=== PATIENT | female | born 1970 | race Asian ===

== ENCOUNTER 2020-04-09 00:58 | Emergency (ER) | payer OTHER, SELFPAY ==
--- NOTE | 2020-04-09 01:10 | PC.NURSE ---
MD at bedside for primary eval. MD removing menstrual cup without difficulty. Pt aware of plan to DC home.
[2020-04-09 01:11] VITALS: BP 137/59; PULSE 95; RESP 20; TEMP 36.7; O2SAT 100; BMI 24.7
--- NOTE | 2020-04-09 01:17 | ED.FEMALEGU ---
HPI - Female Genitourinary General Chief complaint: Urogenital-Female Stated complaint: Personal Time Seen by Provider: 04/09/20 01:04 Source: patient Mode of arrival: ambulatory Limitations: no limitations History of Present Illness HPI Narrative: Patient comes emergency room complaining of a foreign object in her vagina. Patient states that she is on her menstrual period, patient inserted a menstrual cup at 15:00, states that she has been trying to get it out for several hours but has been unsuccessful. Patient denies pain. Related Data Allergies Allergy/AdvReac Type Severity Reaction Status Date / Time moxifloxacin [Avelox] Allergy Unknown Verified 07/31/17 00:00 penicillin V Allergy Unknown Verified 07/31/17 00:00 Penicillins [PENICILLINS] Allergy Unknown HIVES Unverified 12/05/19 16:04 From AVELOX Allergy Unknown THROAT Uncoded 12/05/19 16:04 SWELLS Review of Systems Review of Systems: Constitutional : No Weight loss, No Fever, No Chills, No Night Sweats, No Fatigue, No Malaise ENT/Mouth : No Hearing loss, No Ear Pain, No Nasal Congestion, No Sinus Pain, No Hoarseness, No sore throat, No Rhinorrhea, No Swallowing Difficulty Eyes: No Eye Pain, No Swelling, No Redness, No Foreign Body, No Discharge, No Vision Changes Cardiovascular : No Chest Pain, No SOB, No Dyspnea on Exertion, No Orthopnea, No Edema, No Palpitations Respiratory : No Cough, No Sputum, No Wheezing, No Smoke Exposure, No Dyspnea Gastrointestinal : No Nausea, No Vomiting, No Diarrhea, No Constipation, No abdominal Pain, No Hematochezia, No Melena Genitourinary : Complaining of a menstrual cup being stuck in her vagina, No Dysuria, No Urinary Frequency, No Hematuria, No Urinary Incontinence, No Urgency, No Flank Pain, No Urinary Flow Changes, No Hesitancy Musculoskeletal : No joint pain, No Myalgias, No Joint Swelling Skin : No Skin Lesions, No rash Neuro : No Weakness, No Numbness, No Paresthesias, No Loss of Consciousness, No Dizziness, No Headache Psych : No Anxiety/Panic, No Depression, No SI/HI/AH/VH, No Social Issues, Heme/Lymph: No Bruising, No Bleeding,No Lymphadenopathy Endocrine : No Polyuria, No Polydipsia, No Temperature Intolerance Physical Exam Vital Signs: Vital Signs: Last Vital Signs Temp 98.0 F 04/09/20 01:11 Pulse 95 04/09/20 01:11 Resp 20 04/09/20 01:11 BP 137/59 L 04/09/20 01:11 Pulse Ox 100 04/09/20 01:11 Body Mass Index 24.7 Appearance: Alert. Oriented X3. No acute distress. Eyes: Pupils equal, round and reactive to light. ENT: Pharynx normal. Neck: Normal inspection. Neck supple. No lymph nodes noted. No crepitus CVS: Normal heart rate and rhythm. Pulses normal. Normal S1 and S2 Respiratory: No respiratory distress. Breath sounds normal. No Wheezing. No rales Abdomen: Soft and nontender. No rigidity. No distention. good BS x4 : Menstrual cup is in the vagina Skin: Skin warm and dry. Normal skin color. Normal skin turgor. Extremities: No lower extremity edema. No lower extremity edema. No Lacerations. No Rash Neuro: Oriented X 3. No motor deficit. No sensory deficit. Moving all extermities. No slurred speech. Course Course Course Narrative: On pelvic exam, the menstrual cup was present, approximately 4 cm in, I was able to grab it with 2 fingers and pull it out. No instrumentation needed. Cervical exam after the menstrual cup was removed reveals normal cervix, no active bleeding from cervix Discharge Plan Discharge Clinical Impression: Foreign body in vagina Patient Disposition: Home, Self-Care Instructions: Vaginal Foreign Body (ED) Additional Instructions: Please do not use menstrual cups any more. Please follow-up with your primary care physician tomorrow. If you have any worsening or new symptoms, please return to the emergency room or call 911
--- NOTE | 2020-04-09 01:19 | PC.NURSE ---
Assisted with pelvic exam. Pt tolerated procedure well.
== END 2020-04-09 01:32 | disposition home or self-care (01) ==
LOC: HO.ED 01:23
PROVIDERS: Emergency Provider Emergency Medicine; PCP Internal Medicine
DX: R10.2 Pelvic and perineal pain (principal); Z30.432 Encounter for removal of intrauterine contraceptive device
CPT/HCPCS: 99283

== ENCOUNTER 2020-05-25 03:08 | Emergency (ER) | payer OTHER, SELFPAY ==
--- NOTE | ~2020-05-25 | CT_ITS ---
EXAMINATION: CT ABDOMEN AND PELVIS WITH CONTRAST CLINICAL INFORMATION: Lower abdominal pain, history of colitis COMPARISON: 12/27/2018 TECHNIQUE: Multidetector volumetric images were obtained from the superior aspect of the liver through the pubic symphysis following administration 75 mL of Omnipaque 350 intravenous contrast. Sagittal and coronal reformatted images were obtained on the technologist's workstation. Oral contrast: No This CT examination was performed using dose optimization techniques as appropriate, variously including the following: *Automated exposure control *Adjustment of mA and/or kV according to patient size (this includes techniques or standardized protocols for targeted exams where dose is matched to indication/reason for exam; i.e. extremities or head) *Use of iterative reconstruction technique DLP: 571 mGy-cm FINDINGS: LUNG BASES: The visualized lung bases are unremarkable. LIVER, GALLBLADDER, AND BILIARY TREE: The liver is normal in size, shape, and attenuation. Few scattered small hepatic lesions are too small to characterize, suggestive of cysts. No biliary ductal dilatation is present. Cholelithiasis is noted. PANCREAS: Unremarkable. SPLEEN: Unremarkable. ADRENAL GLANDS: Unremarkable. KIDNEYS AND URETERS: The kidneys are normal in size, shape, and attenuation. No hydronephrosis, hydroureter, or obstructing calculi seen. No perinephric stranding. BLADDER: Unremarkable. GASTROINTESTINAL TRACT: No evidence of bowel obstruction. No significant colonic wall thickening is seen. There is scattered fluid within the colon. The appendix appears nondilated. No free fluid or free air is seen. ABDOMINAL WALL: No significant hernia is appreciated. LYMPH NODES: Normal. VASCULAR: Unremarkable. PELVIC VISCERA: The uterus is enlarged and contains multiple masses, favoring fibroids. OSSEOUS STRUCTURES: There is facet arthropathy of the lower lumbar spine. CT/CT abdomen pelvis w con IMPRESSION: 1. No findings to suggest colitis. 2. Enlarged, lobulated uterus with multiple masses consistent with fibroids. 3. Cholelithiasis.
--- NOTE | 2020-05-25 03:10 | ED.ABDPAIN ---
HPI - Abdominal Pain General Chief Complaint: Abdominal Pain Stated Complaint: ABD PAIN Time Seen by Provider: 05/25/20 03:09 Source: patient Mode of arrival: ambulatory Limitations: no limitations History of Present Illness HPI narrative: 49 yo female hx of c diff colitis associated with antibiotic use comes in with c/o abdominal pain nausea and diarrhea onset yesterday no recent antibiotic use MD elicited complaint: abdominal pain Pertinent past history: other (colitis) Onset (ago): day(s) (1) Pain Consistency: constant Location: diffuse Severity: severe Quality: stabbing Radiation: none Migration to: no migration Exacerbating factors: movement Relieving factors: nothing Context: history of similar episodes Associated symptoms: nausea, diarrhea and chills Related Data Previous Rx's Medication Instructions Recorded hydrocodone-acetaminophen 1 tab PO Q6H PRN #12 tab 05/25/20 ondansetron 4 mg PO Q8H PRN #20 tab 05/25/20 Allergies Allergy/AdvReac Type Severity Reaction Status Date / Time moxifloxacin [Avelox] Allergy Unknown Verified 07/31/17 00:00 penicillin V Allergy Unknown Verified 07/31/17 00:00 Penicillins [PENICILLINS] Allergy Unknown HIVES Unverified 12/05/19 16:04 From AVELOX Allergy Unknown THROAT Uncoded 12/05/19 16:04 SWELLS Review of Systems Review of Systems Constitutional : No Weight loss, No Fever, pos Chills ENT/Mouth : No sore throat, No Rhinorrhea Eyes: No Swelling, No Redness Cardiovascular : No Chest Pain, No SOB, NoEdema Respiratory : No Cough, No Sputum, No Wheezing Gastrointestinal : Positive Nausea, no Vomiting, positive Diarrhea, positive abdominal Pain, No Hematochezia, No Melena Genitourinary : No Dysuria, No Urinary Frequency, No Hematuria, No Urgency Musculoskeletal : No joint pain, No Myalgias, No Joint Swelling Skin : No Skin Lesions, No rash Neuro : No Weakness, No Numbness, No Dizziness, No Headache Psych : No Anxiety/Panic, No Depression Heme/Lymph: No Bruising, No Lymphadenopathy Endocrine : No Polyuria, No Polydipsia All other systems reviewed and are negative. Physical Exam Vital Signs: Vital Signs: Last Vital Signs Temp 98 F 05/25/20 03:17 Pulse 80 05/25/20 05:33 Resp 16 05/25/20 05:33 BP 110/68 05/25/20 05:33 Pulse Ox 98 05/25/20 03:17 Body Mass Index 23.4 Appearance: Alert. Oriented X3. In pain, anxious, mild acute distress. Eyes: Pupils equal, round and reactive to light. ENT: Pharynx normal. Neck: Normal inspection. Neck supple. CVS: Normal heart rate and rhythm. Pulses normal. Respiratory: No respiratory distress. Breath sounds normal. Abdomen: Soft and diffuse moderate ttp with guarding, no rebound Skin: Skin warm and dry. pale skin color. Normal skin turgor. Extremities: No lower extremity edema. No calf ttp Neuro: Oriented X 3. No motor deficit. No sensory deficit. Course Course Course Narrative: pain is suprapubic, labs, UA negative, CT scan shows enlarged fibroid uterus the patient was aware of this, suspect that this is the cause of her pain MDM - Abdominal Pain MDM Narrative Medical decision making narrative: 49 yo female with hx of c diff colitis after antibiotic use comes to the ED with onset of abdominal pain and nausea/diarrhea starting yesterday - no recent antibiotic use, at this time will need labs, cultures, stool studies, CT scan for colitis, IVF, IV morphine for pain dispo per results and findings. Lab Data Result diagrams: 05/25/20 03:32 05/25/20 03:32 Labs: Lab Results 05/25/20 05/25/20 05/25/20 Range/Units 03:31 03:31 03:31 WBC (4.8-10.8) X10*3/uL RBC (4.20-5.50) X10*6/uL Hgb (12.0-16.0) g/dl Hct (37-47) % MCV (80-98) fL MCH (27.0-33.0) pg MCHC (31.0-35.0) g/dl RDW (11.0-16.0) % Plt Count (160-400) X10*3/uL MPV (9.4-12.3) fL Immature Gran % (Auto) (0.0-0.4) % Neut % (Auto) (45-73) % Lymph % (Auto) (20-40) % [place] % (Auto) (2-11) % Eos % (Auto) (0-4) % Baso % (Auto) (0-2) % Lymph # (Auto) (1.2-4.9) X10*3/uL [place] # (Auto) (0.1-1.2) X10*3/uL Eos # (Auto) (0.0-0.4) X10*3/uL Baso # (Auto) (0.0-0.2) X10*3/uL Abs Immat Gran (auto) (0.00-0.03) X10*3/uL Absolute Neuts (auto) (2.0-8.3) X10*3/uL Absolute Nucleated RBC (0.0-0.012) X10*3/uL Nucleated RBC % (auto) (0.0-0.2) /100WBC Hold Blue Top SEE NOTE Sodium (135-145) mmol/L Potassium (3.3-5.1) mmol/L Chloride (96-108) mmol/L Carbon Dioxide (22-29) mmol/L Anion Gap (12-20) BUN (9-16) mg/dL Creatinine (0.5-1.4) mg/dL Estim Creat Clear Calc Estimated GFR Random Glucose (60-115) mg/dL Lactic Acid 0.4 L (0.5-2.0) mmol/L Calcium (8.4-10.2) mg/dL Magnesium (1.6-2.6) mg/dL Total Bilirubin (0.0-1.0) mg/dL Direct Bilirubin (0.0-0.5) mg/dL AST (5-31) U/L ALT (0-31) U/L Alkaline Phosphatase (39-117) U/L Total Protein (6.5-8.0) g/dL Albumin (3.5-5.0) g/dL Lipase (8-78) U/L Urine Color Urine Appearance Urine pH (5.0-8.0) Ur Specific [place] (1.005-1.025) Urine Protein (NEG-TRACE) MG/DL Urine Glucose (UA) (NEG) MG/DL Urine Ketones (NEG) MG/DL Urine Blood (NEG) Urine Nitrite (NEG) Ur Leukocyte Esterase (NEG) Urine RBC (0) /HPF Urine WBC (0-4) /HPF Ur Squamous Epith Cells /LPF Calcium Oxalate Crystal /LPF Urine Bacteria /LPF Urine Mucus /LPF COVID-19 ([facility]) Negative (Negative) COVID-19 Clin Com See Note 05/25/20 05/25/20 05/25/20 Range/Units 03:31 03:32 03:32 WBC 7.7 (4.8-10.8) X10*3/uL RBC 4.05 L (4.20-5.50) X10*6/uL Hgb 12.9 (12.0-16.0) g/dl Hct 39.1 (37-47) % MCV 96.5 (80-98) fL MCH 31.9 (27.0-33.0) pg MCHC 33.0 (31.0-35.0) g/dl RDW 13.1 (11.0-16.0) % Plt Count 281 (160-400) X10*3/uL MPV 9.3 L (9.4-12.3) fL Immature Gran % (Auto) 0.1 (0.0-0.4) % Neut % (Auto) 69.8 (45-73) % Lymph % (Auto) 21.9 (20-40) % Mcintosh % (Auto) 7.5 (2-11) % Eos % (Auto) 0.3 (0-4) % Baso % (Auto) 0.4 (0-2) % Lymph # (Auto) 1.7 (1.2-4.9) X10*3/uL [place]osh # (Auto) 0.6 (0.1-1.2) X10*3/uL Eos # (Auto) 0.0 (0.0-0.4) X10*3/uL Baso # (Auto) 0.0 (0.0-0.2) X10*3/uL Abs Immat Gran (auto) 0.01 (0.00-0.03) X10*3/uL Absolute Neuts (auto) 5.4 (2.0-8.3) X10*3/uL Absolute Nucleated RBC 0.000 (0.0-0.012) X10*3/uL Nucleated RBC % (auto) 0.0 (0.0-0.2) /100WBC Hold Blue Top Sodium 142 (135-145) mmol/L Potassium 3.5 (3.3-5.1) mmol/L Chloride 107 (96-108) mmol/L Carbon Dioxide 29 (22-29) mmol/L Anion Gap 10 L (12-20) BUN 21 H (9-16) mg/dL Creatinine 0.72 (0.5-1.4) mg/dL Estim Creat Clear Calc 76.4 Estimated GFR > 60 Random Glucose 94 (60-115) mg/dL Lactic Acid (0.5-2.0) mmol/L Calcium 9.1 (8.4-10.2) mg/dL Magnesium 1.9 (1.6-2.6) mg/dL Total Bilirubin 0.2 (0.0-1.0) mg/dL Direct Bilirubin < 0.2 (0.0-0.5) mg/dL AST 14 (5-31) U/L ALT 13 (0-31) U/L Alkaline Phosphatase 56 (39-117) U/L Total Protein 6.9 (6.5-8.0) g/dL Albumin 4.3 (3.5-5.0) g/dL Lipase 29 (8-78) U/L Urine Color YELLOW Urine Appearance CLEAR Urine pH 6.0 (5.0-8.0) Ur Specific [place] >= 1.030 H (1.005-1.025) Urine Protein NEG (NEG-TRACE) MG/DL Urine Glucose (UA) NEG (NEG) MG/DL Urine Ketones NEG (NEG) MG/DL Urine Blood TRACE (NEG) Urine Nitrite NEG (NEG) Ur Leukocyte Esterase NEG (NEG) Urine RBC 1-4 (0) /HPF Urine WBC 1-4 (0-4) /HPF Ur Squamous Epith Cells 1+ /LPF Calcium Oxalate Crystal 2+ /LPF Urine Bacteria 1+ /LPF Urine Mucus 2+ /LPF COVID-19 ([facility]) (Negative) COVID-19 Clin Com Discharge Plan Discharge Clinical Impression: Abdominal pain Qualifiers: Abdominal location: lower abdomen, unspecified Qualified Code(s): R10.30 - Lower abdominal pain, unspecified Fibroid, uterine Qualifiers: Uterine leiomyoma location: unspecified location Qualified Code(s): D25.9 - Leiomyoma of uterus, unspecified Patient Disposition: Home, Self-Care Instructions: Abdominal Pain (ED) Additional Instructions: return to ED for any worsening symptoms or concerns you should talk to your doctor about your fibroids Prescriptions: New hydrocodone-acetaminophen 5-325 mg tablet 1 tab PO Q6H PRN (Reason: pain) Qty: 12 RF: 0 ondansetron 4 mg tablet,disintegrating 4 mg PO Q8H PRN (Reason: nausea and vomiting) Qty: 20 RF: 0 Stand Alone Forms: Work/School Release PMFSH Past Medical History Medical History (Updated 05/25/20 @ 05:43 by Nighat Medeiros DO) C. difficile colitis Surgical History Hx of section Social History Social History (Updated 05/25/20 @ 03:20 by Nighat Medeiros DO) Smoking Status: Never smoker Use of substances other than those prescribed or required for medical reasons: No Advance Directives: No
[2020-05-25 03:17] VITALS: BP 139/70; PULSE 66; RESP 16; TEMP 36.6; O2SAT 98; BMI 23.4
--- NOTE | 2020-05-25 03:20 | PC.NURSE ---
PT TO ROOM WITH C/O LOWER ABD PAIN, NAUSEA, AND DIARRHEA. PT ARRIVES ALERT, RESPIRATIONS EASY, N/L. SKIN W/Reba. IN ROOM FOR EVAL.
--- NOTE | 2020-05-25 03:35 | PC.NURSE ---
IV PLACED TO RAC, LABS DRAWN TO LAB. NS UP RUNNING W/O, SITE INTACT. PT REFUSED MORPHINE, MEDICATED WITH ZOFRAN FOR NAUSEA. NS UP AND RUNNING W/O SITE INTACT.
[2020-05-25 03:41] LABS: Basophils Percent Auto 0.4 % (0-2); Eosinophils Percent Auto 0.3 % (0-4); Hematocrit 39.1 % (37-47); Hemoglobin 12.9 g/dl (12.0-16.0); Imm Gran Abs Auto 0.01 X10*3/uL (0.00-0.03); Imm Gran Pct Auto 0.1 % (0.0-0.4); Lymphocytes Absolute Auto 1.7 X10*3/uL (1.2-4.9); Lymphocytes Percent Auto 21.9 % (20-40); MANUAL DIFF FLAG NO; Mean Corpuscular Hemoglobin 31.9 pg (27.0-33.0); Mean Corpuscular Volume 96.5 fL (80-98); Mean Platelet Volume 9.3 fL (9.4-12.3); Monocytes Absolute Auto 0.6 X10*3/uL (0.1-1.2); Monocytes Percent Auto 7.5 % (2-11); Neutrophils Absolute Auto 5.4 X10*3/uL (2.0-8.3); Neutrophils Percent Auto 69.8 % (45-73); Platelet Count 281 X10*3/uL (160-400); Red Blood Count 4.05 X10*6/uL (4.20-5.50); Red Cell Distribution Width 13.1 % (11.0-16.0); White Blood Count 7.7 X10*3/uL (4.8-10.8)
[2020-05-25] MEDS: 0.9 % Sodium Chloride 1,000 ML 999 ML IVCONT (03:44)
[2020-05-25] MEDS: ondansetron HCL 4 MG/2 ML VIAL IVPUSH (03:44)
[2020-05-25 03:46] LABS: Glucose Urine UA NEG (NEG); Leukocyte Esterase Urine NEG (NEG); Nitrite Urine NEG (NEG); Specific Gravity - Urine >= 1.030 (1.005-1.025); Urine Blood TRACE (NEG); Urine Ketones NEG (NEG); Urine Protein NEG (NEG-TRACE)
[2020-05-25 03:51] LABS: Appearance Urine CLEAR; Color Urine YELLOW
[2020-05-25 03:54] LABS: COVID-19 Test Negative (Negative); IDNOW Serial# 9DD0AD1C
[2020-05-25 03:57] LABS: Bacteria Urine 1+ /LPF; Calcium Oxalate Crystals Urine 2+ /LPF; Mucus Urine 2+ /LPF; Squamous Epithelial Cell Urine 1+ /LPF
[2020-05-25 04:00] LABS: Lactic Acid 0.4 mmol/L (0.5-2.0)
[2020-05-25 04:07] LABS: Anion Gap 10 (12-20); Carbon Dioxide 29 mmol/L (22-29); Chloride 107 mmol/L (96-108); Potassium 3.5 mmol/L (3.3-5.1); Sodium 142 mmol/L (135-145)
[2020-05-25 04:14] LABS: Alanine Aminotransferase 13 U/L (0-31); Albumin Level 4.3 g/dL (3.5-5.0); Alkaline Phosphatase 56 U/L (39-117); Aspartate Amino Transferase 14 U/L (5-31); Bilirubin Direct < 0.2 mg/dL (0.0-0.5); Bilirubin Total 0.2 mg/dL (0.0-1.0); Blood Urea Nitrogen 21 mg/dL (9-16); Calcium 9.1 mg/dL (8.4-10.2); Creatinine Clr Calc Pharmacy 76.4; Estimated Glomerular Filt Rate > 60; Glucose Random 94 mg/dL (60-115); Lipase 29 U/L (8-78); Magnesium 1.9 mg/dL (1.6-2.6); Total Protein 6.9 g/dL (6.5-8.0)
[2020-05-25] MEDS: iohexoL 350 MG/ML 75 ML INFUS..BTL IV (04:58)
[2020-05-25] MEDS: Morphine Sulfate 4 MG/ML CARTRIDGE IVPUSH (05:11)
[2020-05-25 05:33] VITALS: BP 110/68; PULSE 80; RESP 16
== END 2020-05-25 06:48 | disposition home or self-care (01) ==
PROVIDERS: Emergency Provider Emergency Medicine; PCP Internal Medicine
DX: R10.30 Lower abdominal pain, unspecified (principal); R19.7 Diarrhea, unspecified; D25.9 Leiomyoma of uterus, unspecified; Z20.822 Contact with and (suspected) exposure to COVID-19; Z87.19 Personal history of other diseases of the digestive system
CPT/HCPCS: 36415; 74177; 80048; 80076; 81001; 83605; 83690; 83735; 85025; 87040; 87635; 96361; 96374; 96375; 96376; 99284; J2270; J2405; Q9967

== ENCOUNTER 2020-08-06 01:58 | Emergency (ER) | payer OTHER, SELFPAY ==
--- NOTE | ~2020-08-06 | XR_ITS ---
EXAMINATION: XR CHEST CLINICAL INFORMATION: Shortness of breath COMPARISON: 09/08/2018 TECHNIQUE: Frontal view of the chest was obtained. FINDINGS: The lungs are clear with no focal consolidation. No evidence of pneumothorax, pulmonary edema, or pleural effusions. The cardiomediastinal silhouette is unremarkable. No acute osseous findings. XR/XR chest 1V IMPRESSION: No acute cardiopulmonary findings.
[2020-08-06 03:55] VITALS: BP 130/60; PULSE 69; RESP 18; TEMP 36.9; O2SAT 99; BMI 26.0
--- NOTE | 2020-08-06 04:10 | ED.GENADULT ---
HPI - General Adult General Chief complaint: Upper Respiratory Symptoms Stated complaint: SOB, cough Time Seen by Provider: 08/06/20 04:10 Source: patient Mode of arrival: ambulatory History of Present Illness HPI narrative: 49-year-old female who suffers from some anxiety who presents with having started with sneezing after being outside ring the day and states that it felt like she was having an asthma exacerbation but she has not had asthma and long time and noted that she had chills. She taken Atarax prior to arrival here in the ER and now reports that she has had complete resolution of all her symptoms. Of note, she has had both motor in a shots with the 2nd received at the end of June. She denies any GI or symptoms. Patient does endorse that she was recently started on hormone control for menorrhagia. Related Data Previous Rx's Medication Instructions Recorded hydrocodone-acetaminophen 1 tab PO Q6H PRN #12 tab 05/25/20 ondansetron 4 mg PO Q8H PRN #20 tab 05/25/20 Allergies Allergy/AdvReac Type Severity Reaction Status Date / Time moxifloxacin [Avelox] Allergy Unknown Anaphylaxis Verified 08/06/20 04:05 penicillin V Allergy Unknown Hives Verified 08/06/20 04:05 Penicillins [PENICILLINS] Allergy Unknown HIVES Verified 08/06/20 04:05 From [facility]ELOX Allergy Unknown THROAT Uncoded 08/06/20 04:05 SWELLS Review of Systems Review of Systems: Pertinent positives and negatives as stated in HPI 10 point review of systems is otherwise negative. [facility] Past Medical History Source: nursing notes reviewed Medical History Asthma C. difficile colitis Surgical History Hx of section Social History Social History Alcohol intake: never Smoking Status: Never smoker Use of substances other than those prescribed or required for medical reasons: No Advance Directives: No Advance Directives Information Provided: No Patient : No Physical Exam Vital Signs: Vital Signs: Last Vital Signs Temp 98.4 F 08/06/20 03:55 Pulse 64 08/06/20 07:24 Resp 16 08/06/20 07:24 BP 148/69 H 08/06/20 07:24 Pulse Ox 100 08/06/20 07:24 Body Mass Index 26.0 VITAL SIGNS: Reviewed. GENERAL: Well developed, well nourished, in no acute distress. HEAD: Normocephalic/atraumatic EYES: PERRLA, EOMI EARS: Ext canals without abnormality NOSE: Nares patent bilateral OROPHARYNX: no oral lesions noted, posterior pharynx clear NECK: Supple, no adenopathy LUNGS: Normal breath sounds. No adventitious sounds or accessory muscle use. SpO2<100> CARDIOVASCULAR: Regular rate and rhythm without noted murmurs, no JVD or lower extremity edema. ABDOMEN: Soft, non-tender, non-distended with bowel sounds. NEUROLOGIC: Alert and oriented x 4. Course Course Course Narrative: 49-year-old female with history and clinical presentation suggestive possible seasonal allergy exacerbation although low clinical suspicion for asthma exacerbation based on exam. Low clinical suspicion for PE or cardiopulmonary etiologies. Review of all investigations is significant for anemia. Patient is currently asymptomatic and review vital signs is not significant evidence that this has been an acute event and this is likely secondary to patient's reported menorrhagia that she has been experiencing. All results were discussed with the patient at bedside and she further endorse that she used to go to the infusion clinic and thinks that she may half to return given the current laboratory findings. 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 Patient was otherwise comfortable with being discharged to home. Medical Decision Making Lab Data Result diagrams: 08/06/20 05:28 08/06/20 05:28 Labs: Lab Results 08/06/20 08/06/20 08/06/20 Range/Units 05:17 05:28 05:28 WBC 4.9 (4.8-10.8) X10*3/uL RBC 2.84 L D (4.20-5.50) X10*6/uL Hgb 8.4 L D (12.0-16.0) g/dl Hct 25.7 L D (37-47) % MCV 90.5 (80-98) fL MCH 29.6 (27.0-33.0) pg MCHC 32.7 (31.0-35.0) g/dl RDW 14.1 (11.0-16.0) % Plt Count 418 H D (160-400) X10*3/uL MPV 8.9 L (9.4-12.3) fL Immature Gran % (Auto) 0.2 (0.0-0.4) % Neut % (Auto) 54.6 (45-73) % Lymph % (Auto) 30.2 (20-40) % [place] % (Auto) 10.1 (2-11) % Eos % (Auto) 4.3 H (0-4) % Baso % (Auto) 0.6 (0-2) % Lymph # (Auto) 1.5 (1.2-4.9) X10*3/uL [place] # (Auto) 0.5 (0.1-1.2) X10*3/uL Eos # (Auto) 0.2 (0.0-0.4) X10*3/uL Baso # (Auto) 0.0 (0.0-0.2) X10*3/uL Abs Immat Gran (auto) 0.01 (0.00-0.03) X10*3/uL Absolute Neuts (auto) 2.7 (2.0-8.3) X10*3/uL Absolute Nucleated RBC 0.000 (0.0-0.012) X10*3/uL Nucleated RBC % (auto) 0.0 (0.0-0.2) /100WBC Sodium 139 (135-145) mmol/L Potassium 4.5 D (3.3-5.1) mmol/L Chloride 111 H (96-108) mmol/L Carbon Dioxide 23 (22-29) mmol/L Anion Gap 10 L (12-20) BUN 16 (9-16) mg/dL Creatinine 0.65 (0.5-1.4) mg/dL Estim Creat Clear Calc 93.9 Estimated GFR > 60 Random Glucose 86 (60-115) mg/dL Calcium 8.2 L D (8.4-10.2) mg/dL Total Bilirubin < 0.2 (0.0-1.0) mg/dL AST 11 (5-31) U/L ALT 10 (0-31) U/L Alkaline Phosphatase 38 L D (39-117) U/L Total Protein 5.9 L (6.5-8.0) g/dL Albumin 3.5 (3.5-5.0) g/dL COVID-19 ([facility]) Negative (Negative) COVID-19 Clin Com See Note Discharge Plan Discharge Clinical Impression: Shortness of breath Patient Disposition: Home, Self-Care Instructions: Menorrhagia (ED), Anemia (ED), Shortness of Breath (ED) Additional Instructions: Please resume any and prescribed medications as instructed. Follow-up with your primary care provider and/or your aml analyst for further follow-up regarding your anemia related symptoms. Do not hesitate to return to the emergency room should you develop any acute worsening of your symptoms. Prescriptions: No Action hydrocodone-acetaminophen 5-325 mg tablet 1 tab PO Q6H PRN (Reason: pain) Qty: 12 RF: 0 ondansetron 4 mg tablet,disintegrating 4 mg PO Q8H PRN (Reason: nausea and vomiting) Qty: 20 RF: 0 Referrals: Lisa Cruz MD [Primary Care Provider] - 2 days (Evaluation after seen in the ER for shortness of breath and found to be significantly anemic although otherwise hemodynamically stable.)
[2020-08-06 05:42] LABS: COVID-19 Test Negative (Negative); IDNOW Serial# 9DD0AD1C
[2020-08-06 06:27] LABS: MANUAL DIFF FLAG NO
[2020-08-06 06:28] LABS: Basophils Percent Auto 0.6 % (0-2); Eosinophils Absolute Auto 0.2 X10*3/uL (0.0-0.4); Eosinophils Percent Auto 4.3 % (0-4); Hematocrit 25.7 % (37-47); Hemoglobin 8.4 g/dl (12.0-16.0); Imm Gran Abs Auto 0.01 X10*3/uL (0.00-0.03); Imm Gran Pct Auto 0.2 % (0.0-0.4); Lymphocytes Absolute Auto 1.5 X10*3/uL (1.2-4.9); Lymphocytes Percent Auto 30.2 % (20-40); Mean Corpuscular HGB Conc 32.7 g/dl (31.0-35.0); Mean Corpuscular Hemoglobin 29.6 pg (27.0-33.0); Mean Corpuscular Volume 90.5 fL (80-98); Mean Platelet Volume 8.9 fL (9.4-12.3); Monocytes Absolute Auto 0.5 X10*3/uL (0.1-1.2); Monocytes Percent Auto 10.1 % (2-11); Neutrophils Absolute Auto 2.7 X10*3/uL (2.0-8.3); Neutrophils Percent Auto 54.6 % (45-73); Platelet Count 418 X10*3/uL (160-400); Red Blood Count 2.84 X10*6/uL (4.20-5.50); Red Cell Distribution Width 14.1 % (11.0-16.0); White Blood Count 4.9 X10*3/uL (4.8-10.8)
[2020-08-06 07:00] LABS: Alanine Aminotransferase 10 U/L (0-31); Albumin Level 3.5 g/dL (3.5-5.0); Alkaline Phosphatase 38 U/L (39-117); Anion Gap 10 (12-20); Aspartate Amino Transferase 11 U/L (5-31); Bilirubin Total < 0.2 mg/dL (0.0-1.0); Blood Urea Nitrogen 16 mg/dL (9-16); Calcium 8.2 mg/dL (8.4-10.2); Carbon Dioxide 23 mmol/L (22-29); Chloride 111 mmol/L (96-108); Creatinine Clr Calc Pharmacy 93.9; Estimated Glomerular Filt Rate > 60; Glucose Random 86 mg/dL (60-115); Potassium 4.5 mmol/L (3.3-5.1); Sodium 139 mmol/L (135-145); Total Protein 5.9 g/dL (6.5-8.0)
[2020-08-06 07:24] VITALS: BP 148/69; PULSE 64; RESP 16; O2SAT 100
[2020-08-06 08:41] VITALS: BP 134/69; PULSE 65; RESP 15; O2SAT 98
== END 2020-08-06 08:57 | disposition home or self-care (01) ==
PROVIDERS: Emergency Provider Student in an Organized Health Care Education/Training Program; PCP Internal Medicine
DX: R06.02 Shortness of breath (principal); Z20.822 Contact with and (suspected) exposure to COVID-19; J45.909 Unspecified asthma, uncomplicated; Z79.899 Other long term (current) drug therapy
CPT/HCPCS: 36415; 71045; 80053; 85025; 87635; 99283; 99284

== ENCOUNTER 2020-08-20 15:46 | Emergency (ER) | payer OTHER, SELFPAY | END 2020-08-20 17:21 | disposition left against medical advice (07) | PROVIDERS: Emergency Provider Emergency Medicine; PCP Internal Medicine | DX: R07.9 Chest pain, unspecified (principal) ==

== ENCOUNTER 2021-10-06 02:00 | Emergency (ER) | payer OTHER, SELFPAY ==
--- NOTE | 2021-10-06 | ECG_ITS ---
Test Reason : cp Blood Pressure : / mmHG Vent. Rate : 071 BPM Atrial Rate : 071 BPM P-R Int : 154 ms QRS Dur : 078 ms QT Int : 384 ms P-R-T Axes : 049 047 033 degrees QTc Int : 417 ms Normal sinus rhythm Normal ECG When compared with ECG of 08-SEP-2018 20:56, No significant change was found Referred By: Generic ED Physician Electronically Signed By:Cooper Wakefield
--- NOTE | ~2021-10-06 | XR_ITS ---
EXAMINATION: XR CHEST CLINICAL INFORMATION: Chest pain COMPARISON: 08/06/2020 TECHNIQUE: 2 views of the chest were obtained. FINDINGS: The lungs are clear with no focal consolidation. No evidence of pneumothorax, pulmonary edema, or pleural effusions. The cardiomediastinal silhouette is unremarkable. No acute osseous findings. XR/XR chest 2V IMPRESSION: No acute cardiopulmonary findings.
[2021-10-06 02:20] VITALS: BP 118/66; PULSE 68; RESP 18; TEMP 36.3; O2SAT 98; BMI 31.8
[2021-10-06 02:22] LABS: MANUAL DIFF FLAG NO
[2021-10-06 02:23] LABS: Basophils Percent Auto 0.7 % (0-2); Eosinophils Absolute Auto 0.2 X10*3/uL (0.0-0.4); Eosinophils Percent Auto 3.8 % (0-4); Hematocrit 29.7 % (37.0-47.0); Imm Gran Abs Auto 0.01 X10*3/uL (0.00-0.03); Imm Gran Pct Auto 0.2 % (0.0-0.4); Lymphocytes Absolute Auto 1.8 X10*3/uL (1.2-4.9); Lymphocytes Percent Auto 30.7 % (20-40); Mean Corpuscular HGB Conc 30.3 g/dl (31.0-35.0); Mean Corpuscular Hemoglobin 22.1 pg (27.0-33.0); Monocytes Absolute Auto 0.6 X10*3/uL (0.1-1.2); Monocytes Percent Auto 9.8 % (2-11); Neutrophils Absolute Auto 3.2 x10*3/uL (2.0-8.3); Neutrophils Percent Auto 54.8 % (45-73); Platelet Count 402 X10*3/uL (160-400); Red Blood Count 4.07 X10*6/uL (4.20-5.50); Red Cell Distribution Width 20.9 % (11.0-16.0); White Blood Count 5.8 X10*3/uL (4.8-10.8)
[2021-10-06 02:42] LABS: Alanine Aminotransferase 9 U/L (0-31); Alkaline Phosphatase 72 U/L (39-117); Anion Gap 10 (12-20); Aspartate Amino Transferase 12 U/L (5-31); Bilirubin Total 0.2 mg/dL (0.0-1.0); Blood Urea Nitrogen 18 mg/dL (9-16); Calcium 9.1 mg/dL (8.4-10.2); Carbon Dioxide 26 mmol/L (22-29); Chloride 109 mmol/L (96-108); Creatinine Clr Calc Pharmacy 75.7; Estimated Glomerular Filt Rate > 60; Glucose Random 116 mg/dL (60-115); Potassium 3.9 mmol/L (3.3-5.1); Sodium 141 mmol/L (135-145); Total Protein 6.9 g/dL (6.5-8.0); Troponin-I High Sensitivity < 3.5 ng/L (<3.5-17.0)
== END 2021-10-06 08:24 | disposition left against medical advice (07) ==
PROVIDERS: Emergency Provider Emergency Medicine; PCP Internal Medicine
DX: R07.89 Other chest pain (principal); M25.561 Pain in right knee; Z79.899 Other long term (current) drug therapy
CPT/HCPCS: 36415; 71046; 80053; 84484; 85025; 93005; 99283

== ENCOUNTER 2021-10-11 09:41 | Outpatient (REF) | payer OTHER, SELFPAY ==
--- NOTE | ~2021-10-11 | XR_ITS ---
EXAMINATION: XR KNEE STANDING AP, BILATERAL XR KNEE, RIGHT CLINICAL INFORMATION: Knee pain. COMPARISON: Standing AP knees and right knee radiographs 05/01/2017. TECHNIQUE: Standing AP view of both knees is performed. The right knee is also imaged in lateral and axial patella x2 views. FINDINGS: RIGHT KNEE: Tricompartment osteoarthritis greatest medial compartment with joint narrowing, osteophytes, and mild genu varus. No visible erosive change or chondrocalcinosis. No destructive process. There is no lateralization or tilting of the patella. A moderate suprapatellar effusion is present. Hoffa's fat pad appears normal. There is spurring at the quadriceps insertion patella. Findings slightly increased since prior exam 2018. LEFT KNEE: There is mild narrowing medial knee joint compartment with spurring from the medial femoral condyle and medial tibial plateau and mild genu varus. No visible erosive change or chondrocalcinosis. No destructive process. XR/XR knee standing BI IMPRESSION: RIGHT: Tricompartment osteoarthritis increased since 2018 with mild secondary genu varus and moderate suprapatellar effusion. Spurring at quadriceps insertion patella. LEFT: Mild narrowing medial compartment with osteophytes and mild genu varus.
--- NOTE | ~2021-10-11 | XR_ITS ---
EXAMINATION: XR KNEE STANDING AP, BILATERAL XR KNEE, RIGHT CLINICAL INFORMATION: Knee pain. COMPARISON: Standing AP knees and right knee radiographs 05/01/2017. TECHNIQUE: Standing AP view of both knees is performed. The right knee is also imaged in lateral and axial patella x2 views. FINDINGS: RIGHT KNEE: Tricompartment osteoarthritis greatest medial compartment with joint narrowing, osteophytes, and mild genu varus. No visible erosive change or chondrocalcinosis. No destructive process. There is no lateralization or tilting of the patella. A moderate suprapatellar effusion is present. Hoffa's fat pad appears normal. There is spurring at the quadriceps insertion patella. Findings slightly increased since prior exam 2018. LEFT KNEE: There is mild narrowing medial knee joint compartment with spurring from the medial femoral condyle and medial tibial plateau and mild genu varus. No visible erosive change or chondrocalcinosis. No destructive process. XR/XR knee RT 2V IMPRESSION: RIGHT: Tricompartment osteoarthritis increased since 2018 with mild secondary genu varus and moderate suprapatellar effusion. Spurring at quadriceps insertion patella. LEFT: Mild narrowing medial compartment with osteophytes and mild genu varus.
== END 2021-10-11 09:42 | disposition home or self-care (01) ==
LOC: HO.HOSX 09:41
PROVIDERS: Visit Provider Physician Assistant
DX: M76.51 Patellar tendinitis, right knee (principal); M25.562 Pain in left knee
CPT/HCPCS: 73560; 73565; 99202

== ENCOUNTER 2021-10-18 14:24 | Outpatient (REF) | payer OTHER, SELFPAY ==
--- NOTE | ~2021-10-18 | XR_ITS ---
EXAMINATION: XR SHOULDER, LEFT CLINICAL INFORMATION: Left shoulder pain. COMPARISON: None TECHNIQUE: Three views of the left shoulder. XR/XR shoulder LT min 2V FINDINGS/IMPRESSION: Amorphous calcification projecting roughly over the expected location of the insertion of the supraspinatus tendon on the humeral head suggests calcific bursitis versus calcific tendinitis. There is no acute radiographic finding. No fracture or dislocation is seen. Bony mineralization appears preserved. No lytic or sclerotic bony lesion is seen. The joint spaces appear maintained.
--- NOTE | ~2021-10-18 | XR_ITS ---
EXAMINATION: XR HAND, LEFT CLINICAL INFORMATION: Left-sided finger pain COMPARISON: None TECHNIQUE: PA, lateral, and oblique views of the left hand. FINDINGS: The bones and soft tissues are normal. No fracture. Alignment is anatomic. Joint spaces are maintained. No erosions or soft tissue calcifications. XR/XR hand LT min 3V IMPRESSION: Normal left hand.
== END 2021-10-18 14:25 | disposition home or self-care (01) ==
LOC: HO.HMGCX 14:24
PROVIDERS: Visit Provider Physician Assistant
DX: M79.645 Pain in left finger(s) (principal); M25.512 Pain in left shoulder
CPT/HCPCS: 73030; 73130

== ENCOUNTER → 2021-11-01 12:21 | Outpatient (BNVA) | payer OTHER, SELFPAY | PROVIDERS: PCP Internal Medicine; Visit Provider Orthopaedic Surgery | DX: M23.311 Other meniscus derangements, anterior horn of medial meniscus, right knee (principal) | CPT/HCPCS: 20610; 99212; J1100 ==

== ENCOUNTER 2021-11-16 07:42 | Outpatient (REF) | payer OTHER, SELFPAY ==
--- NOTE | ~2021-11-16 | MR_ITS ---
EXAMINATION: MR KNEE WITHOUT CONTRAST, RIGHT CLINICAL INFORMATION: Right knee pain x4 months. COMPARISON: 10/11/2021. TECHNIQUE: MRI of the knee without contrast was performed using routine sequences on a high-field scanner. FINDINGS: MENISCI: Medial Meniscus: The previously seen radial tear at the posterior horn near the root is less pronounced as compared to the prior study from 2015. There is a new oblique radial tear at the junction of the posterior horn and body extending to the inner half of the meniscal cross-section. Additionally, there is a near-complete radial tear at the anterior half of the meniscal body, which spares a thin band of peripheral, femoral sided fibers. Much of the meniscal body is extruded medially from the jointline. Lateral Meniscus: Intact LIGAMENTS: Cruciate: Edema signal around the MCL is likely reactive to the underlying meniscal abnormality. Collateral ligaments are intact. Collateral: Intact EXTENSOR MECHANISM: Enthesopathic spurring is present at the quadriceps tendon insertion on the patella. Patellar tendon is normal. ARTICULAR CARTILAGE/BONE: Patellofemoral Compartment: There is moderate nonuniform cartilage loss at the central patella and central trochlea with foci of full-thickness chondral fissuring of the trochlea. Moderate size marginal osteophytes. There is degenerative arthritis as progressed as compared to prior. Medial Compartment: Diffuse moderate articular cartilage loss is evident at the medial femoral condyle and medial tibial plateau weightbearing surfaces with more focal high-grade cartilage loss at the posteromedial aspect of the medial tibial plateau. Moderate size marginal osteophytes. Mild subchondral edema signal. No fractures. Lateral Compartment: Moderate size marginal osteophytes. Mild nonuniform cartilage loss at the lateral femoral condyle and tibial plateau, similar to prior. JOINT FLUID AND BURSAE: Small to moderate-sized joint effusion. No Singleton's cyst. MR/MR knee RT wo con IMPRESSION: 1. Two radial tears at the medial meniscus, both of which are new as compared to 2015. Meniscal extrusion. 2. Progression of the moderate osteoarthritis at the medial and patellofemoral compartments. More mild lateral compartment osteoarthritis. 3. Small to moderate-sized joint effusion.
== END 2021-11-16 07:43 | disposition home or self-care (01) ==
LOC: HO.MRI 07:42
PROVIDERS: Visit Provider Orthopaedic Surgery
DX: M23.311 Other meniscus derangements, anterior horn of medial meniscus, right knee (principal)
CPT/HCPCS: 73721

== ENCOUNTER → 2021-11-26 09:58 | Outpatient (BNVA) | payer OTHER, SELFPAY | PROVIDERS: PCP Internal Medicine; Visit Provider Orthopaedic Surgery | DX: S83.241D Other tear of medial meniscus, current injury, right knee, subsequent encounter (principal) | CPT/HCPCS: 99212 ==

== ENCOUNTER 2021-12-20 14:07 | Emergency (ER) | payer OTHER, SELFPAY ==
[2021-12-20 14:22] VITALS: BP 131/73; PULSE 74; RESP 18; TEMP 36.9; O2SAT 100; BMI 33.6
--- NOTE | 2021-12-20 16:52 | ED_ITS ---
HPI - Skin/Abscess/Foreign Bdy General Chief complaint: Skin/Abscess/Foreign Body Stated complaint: Rash Time Seen by Provider: 12/20/21 16:47 Source: patient Mode of arrival: ambulatory Limitations: no limitations History of Present Illness HPI narrative: Patient presents emergency department for evaluation of a red rash to the bilateral hands. First noticed yesterday. Not itchy. Not painful. Uncertain whether any bug bite occurred. Denies any known allergies. Denies any new detergents/soaps/lotions. Denies any new recent medications. No fevers, chills, shortness of breath, difficulty breathing. Related Data Allergies Allergy/AdvReac Type Severity Reaction Status Date / Time moxifloxacin [Avelox] Allergy Unknown Anaphylaxis Verified 10/18/21 14:00 penicillin V Allergy Unknown Hives Verified 10/18/21 14:00 Penicillins [PENICILLINS] Allergy Unknown HIVES Verified 10/18/21 14:00 From AVELOX Allergy Unknown THROAT Uncoded 10/18/21 14:00 SWELLS Review of Systems Review of Systems: Constitutional: No fever, chills, weakness or fatigue. Skin: Positive rash, no itching. Cardiovascular: No chest pain, chest pressure or chest discomfort. No palpitations Respiratory: No shortness of breath, cough or sputum production. Gastrointestinal: No nausea, vomiting or diarrhea. No abdominal pain Genitourinary: No burning micturition. No urinary frequency or incontinence. Musculoskeletal: No muscle pain, back pain, joint pain or stiffness. Psychiatric: No depression or anxiety. Yes all other systems are reviewed and are negative PMFSH Past Medical History Attestation statement: The following information was validated with the patient. Source: old records reviewed Medical History Asthma C. 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 Blood pressure normal.? Heart rate normal.? Respiration rate normal. Temperature normal.? Oxygen saturation normal. Appearance: Alert.?Oriented to person, place and time. No acute distress.?Normal affect.?? Neck: Normal inspection.? Neck supple.?? CVS: Heart sounds normal. Normal heart rate and rhythm.? Pulses normal.?? Respiratory: No respiratory distress.? Lung sounds clear to auscultation bilaterally?? Abdomen: Soft and non-tender. Normoactive bowel sounds. No pulsatile mass.?? Skin: Skin warm and dry.? Normal skin color.? 4 maculopapular areas to right d orsal hand, 1 to left hand.??No significant surrounding erythema, swelling, pain, pruritus, linear abrasions. Palms of hands are clear, interdigit spaces clear Extremities: No lower extremity edema.? Neuro: Moves all extremities spontaneously. Sensation intact bilaterally. No focal neuro deficits. Ambulates with normal steady gait. Course Course Course Narrative: Patient is a 51-year-old female with a past medical history of anxiety, asthma who presents emergency department for evaluation of rash to the bilateral dorsal hands. Discussed with patient at this time rash appears most likely consistent with a contact dermatitis, patient highly concerned about possibility of bed bugs although she did check her house extensively last night and did not see any evidence of them. Advised patient cannot completely exclude the possibility of bed bugs, but would seem less likely if she did not find any evidence of them, and they are not pruritic. Patient discharged home in stable condition, reviewed reasons to return back to emergency department, advised outpatient follow-up with primary care provider as needed. MDM - Skin/Abscess/Foreign Bdy Medical Records Attestation: I reviewed the patient's medical records. Discharge Plan Discharge Clinical Impression: Rash Patient Disposition: Home, Self-Care Instructions: Acute Rash (ED) Additional Instructions: Please return to emergency department with any new or worsening symptoms or concerns. Follow-up with your primary care provider as needed.
--- OUTSIDE RECORDS SUMMARY | 2021-12-20 17:07 | XMS_ITS | Continuity of Care Document ---
:1970 Author Organization [facility] Address [address] [place] [address]- Care Team Providers Name Role Phone Nancy GUTIERRES, Lisa Primary Care Physician Encounter [facility] Date(s): 09/24/19 - 10/24/19 [facility] [address] [place] [address] [facility] Attending Physician: Gonzalez Chowdhury Admitting Physician: AdmtrGonzalez Referring Physician: Admtr, ArFausto Allergies, Adverse Reactions, Alerts Substance Reaction Severity Status penicillins hives/rash Active Avelox throat closing Active Pollen pollen,trees Active Medications albuterol CFC free 90 mcg/inh inhalation aerosol 2, puffs, Inhalation, 4 times a day, PRN, Refills 0, Maintenance, 05/13/16 18:19:48 EST Start Date: 05/13/16 Status: Orderedbrimonidine 0.025% ophthalmic solution 0 Refills, Maintenance, 05/07/19 8:28:00 EST Start Date: 05/07/19 Status: OrderedMultivitamin By Mouth, Daily, 0 Refills, Maintenance, 03/25/19 9:56:00 EST Start Date: 03/25/19 Status: OrderedProbiotic Formula By Mouth, Daily, 0 Refills, Maintenance, 03/25/19 9:20:00 EST Start Date: 03/25/19 Status: OrderedReadi-Cat 2 oral suspension See Instructions, 2 bottles as per radiology instructions, # 2 each, 0 Refills, Maintenance, 05/07/19 9:03:00 EST, [id number], 2 bottles as per radiology instructions, 160, cm, 05/07/19 8:24:00EST, Height, 97.3, kg, 04/01/19 11:49:00 EST, Dry... Start Date: 05/07/19 Status: OrderedTravatan Z 0.004% ophthalmic solution 1 drops, Eyes, Both, Daily before dinner, 0 Refills, Maintenance, 05/07/19 8:27:00 EST Start Date: 05/07/19 Status: Ordered Problem List Condition Effective Dates Status Health Status Informant Abdominal pain(Confirmed) Active Heavy period(Confirmed) Active Uterine fibroid(Confirmed) Active Social History Social History Type Response Smoking Status Never (less than 100 in life time) entered on: 05/07/19 Sex
--- OUTSIDE RECORDS SUMMARY | 2021-12-20 17:07 | XMS_ITS | Continuity of Care Document ---
:1970 Author Organization [facility] Address [address] [place] [address]- Care Team Providers Name Role Phone Not on Staff, PCP Primary Care Physician Unavailable Encounter [facility] Date(s): 04/01/19 - 04/01/[address] [address]- [facility] Discharge Disposition: A-D/C Home Attending Physician: Lokesh Sin MD Admitting Physician: Lokesh Sin MD Referring Physician: Lokesh Sin MD Allergies, Adverse Reactions, Alerts Substance Reaction Severity Status penicillins hives/rash Active Avelox throat closing Active Pollen pollen,trees Active Medications albuterol CFC free 90 mcg/inh inhalation aerosol 2, puffs, Inhalation, 4 times a day, PRN, Refills 0, Maintenance, 05/13/16 18:19:48 EST Start Date: 05/13/16 Status: Orderedibuprofen 800 mg oral tablet 800 mg, 1, tablet, By Mouth, 3 times a day, # 20 tablet, Refills 0, Tot. Refills 0, Acute 04/08/19 13:29:00 EST, 04/01/19 13:29:00 EST, Print Requisition Start Date: 04/01/19 Stop Date: 04/08/19 Status: OrderedMultivitamin By Mouth, Daily, 0 Refills, Maintenance, 03/25/19 9:56:00 EST Start Date: 03/25/19 Status: OrderedProbiotic Formula By Mouth, Daily, 0 Refills, Maintenance, 03/25/19 9:20:00 EST Start Date: 03/25/19 Status: Ordered Problem List Condition Effective Dates Status Health Status Informant Abdominal pain(Confirmed) Active Heavy period(Confirmed) Active Uterine fibroid(Confirmed) Active Vital Signs Most recent to oldest 1 2 3 [Reference Range]: Height 160 cm 158 cm (04/01/19 11:49 AM) (03/25/19 9:53 AM) Weight 97.3 kg 100 kg (04/01/19 11:49 AM) (03/25/19 9:53 AM) Oxygen Saturation [94-100 99 % 100 % 100 % %] (04/01/19 2:30 PM) (04/01/19 2:15 PM) (04/01/19 2:0 0 PM) Pulse Rate [55-90 bpm] 74 bpm (04/01/19 11:49 AM) Body Mass Index 38.01 40.06 [18.5-24.99] *>HHI* *>HHI* (04/01/19 11:49 AM) (03/25/19 9:53 AM) Blood Pressure 153/84 mm Hg 149/72 mm Hg 148/72 mm Hg [90-138/55-84 mm Hg] *H* *H* *H* (04/01/19 2:30 PM) (04/01/19 2:15 PM) (04/01/19 2:0 0 PM) Respiratory Rate [16-30 40 br/min 35 br/min 54 br/mi n br/min] *H* *H* *H* (04/01/19 2:30 PM) (04/01/19 2:15 PM) (04/01/19 2:0 0 PM) Temperature [96.8-100.4 98.7 DegF 97.7 DegF 97.9 Deg F DegF] (04/01/19 2:15 PM) (04/01/19 1:30 PM) (04/01/19 11: 49 AM) Liters per Minute 2 L/min 5 L/min 5 L/min (04/01/19 2:15 PM) (04/01/19 2:00 PM) (04/01/19 1:4 5 PM) Mode of Delivery (Oxygen) Room air Room air Simple face mask (04/01/19 2:30 PM) (04/01/19 2:15 PM) (04/01/19 2:0 0 PM) Blood pressure sites Arm, right (04/01/19 11:49 AM) Temperature Route Temporal Temporal (04/01/19 1:30 PM) (04/01/19 11:49 AM) Dry Weight 97.3 kg 100 kg (04/01/19 11:49 AM) (03/25/19 9:53 AM) Weight Obtained Via Standing scale (04/01/19 11:49 AM) Dry Weight Obtained Via Standing scale Patient/family stated (04/01/19 11:49 AM) (03/25/19 9:53 AM)
--- OUTSIDE RECORDS SUMMARY | 2021-12-20 17:07 | XMS_ITS | Continuity of Care Document ---
:1970 Author Organization [facility] Address [address] [place] [address]- Care Team Providers Name Role Phone Not on Staff, PCP Primary Care Physician Unavailable Encounter [facility] Date(s): 03/27/19 - 04/03/[address] [address]- [facility] Attending Physician: Lokesh Sin MD Allergies, Adverse Reactions, [...]
--- OUTSIDE RECORDS SUMMARY | 2021-12-20 17:07 | XMS_ITS | Continuity of Care Document ---
:1970 Author Organization [facility] Address [address] [place] [address]- Care Team Providers Name Role Phone Nancy GUTIERRES, Lisa Primary Care Physician [id number] Date(s): 06/26/19 - 10/24/19 [facility] [address] [place] [address]- [facility] Attending Physician: Mireya Cochran NP Admitting Physician: Mireya Cochran NP Referring Physician: Lisa Cruz MD Allergies, Adverse Reactions, Alerts Substance Reaction [...]
--- OUTSIDE RECORDS SUMMARY | 2021-12-20 17:07 | XMS_ITS | Continuity of Care Document ---
:1970 Author Organization [facility] Address [address] [place] [address]- Care Team Providers Name Role Phone Not on Staff, PCP Primary Care Physician Unavailable Encounter [facility] Date(s): 02/06/19 - 05/01/19 [facility] [address] [place] [address]- [facility] Attending Physician: Laurence Rowley MD Admitting Physician: Laurence Rowley MD Referring Physician: Lisa Cruz MD Allergies, Adverse Reactions, Alerts Substance Reaction Severity Status penicillins hives/rash Active Avelox throat closing Active Pollen pollen,trees Active Medications albuterol CFC free 90 mcg/inh inhalation aerosol 2, puffs, Inhalation, 4 times a day, PRN, Refills 0, Maintenance, 05/13/16 18:19:48 EST Start Date: 05/13/16 Status: OrderedMultivitamin By Mouth, Daily, 0 Refills, Maintenance, 03/25/19 9:56:00 EST Start Date: 03/25/19 Status: OrderedProbiotic Formula By Mouth, Daily, 0 Refills, Maintenance, 03/25/19 9:20:00 EST Start Date: 03/25/19 Status: Ordered Problem List Condition Effective Dates Status Health Status Informant Abdominal pain(Confirmed) Active Heavy period(Confirmed) Active Uterine fibroid(Confirmed) Active
--- OUTSIDE RECORDS SUMMARY | 2021-12-20 17:08 | XMS_ITS | Continuity of Care Document ---
:1970 Author Organization [facility] Address [address] [place] [address]- Care Team Providers Name Role Phone Nancy GUTIERRES, Lisa Primary Care Physician En[place] [facility] Date(s): 05/10/19 - 06/17/[address] [address] [facility] Attending Physician: Mireya Cochran NP Admitting Physician: Mireya Cochran NP Referring Physician: Mireya Cochran NP Allergies, Adverse Reactions, Alerts Substance Reaction Severity [...]
== END 2021-12-20 18:13 | disposition home or self-care (01) ==
PROVIDERS: Emergency Provider Emergency Medicine; PCP Internal Medicine
DX: R21 Rash and other nonspecific skin eruption (principal)
CPT/HCPCS: 99282

== ENCOUNTER → 2022-02-03 11:58 | Outpatient (BNVA) | payer OTHER, SELFPAY | PROVIDERS: PCP Internal Medicine; Visit Provider Orthopaedic Surgery | DX: S83.241D Other tear of medial meniscus, current injury, right knee, subsequent encounter (principal); M76.51 Patellar tendinitis, right knee | CPT/HCPCS: 20610; 99212; J1100 ==

== ENCOUNTER 2023-09-04 09:42 | Outpatient (AMB) | payer OTHER, SELFPAY ==
--- NOTE | 2023-09-04 10:02 | MHC.OFFVIS ---
Vital Signs 09/04/23 10:03 Height 5 ft 3 in Weight 238 lb BMI 42.2 Intake Visit Reasons: OV, Right Knee MMT, last seen 2021 Intake Note: Elli is a 52 year old female who presents today for a follow up visit for right knee pain. Hx of right knee MMT. Last injection 02/03/22 NE. Patient reports she has been having on going right knee pain for the past two years. She expresses she banged her knee on the side of a recliner and since then her knee has not been the same. She had lost weight and gained some weight again and her knee started to hurt her again, she then lost some more weight but since then feels her knee pain has not improved. She found mild relief in her last injection, she would like to discuss gel injections. She would also like to discuss a referral for PT. Allergies moxifloxacin [Avelox] Allergy (Unknown, Verified 09/04/23 10:10) Anaphylaxis penicillin V Allergy (Unknown, Verified 09/04/23 10:10) Hives Penicillins [PENICILLINS] Allergy (Unknown, Verified 09/04/23 10:10) HIVES From AVELOX Allergy (Unknown, Uncoded 09/04/23 10:10) THROAT SWELLS HPI HPI OV, Right Knee MMT, last seen 2021: Details: Elli is a 52 year old female who presents today for a follow up visit for right knee pain. Hx of right knee MMT. Last injection 02/03/22 NE. Patient reports she has been having on going right knee pain for the past two years. She expresses she banged her knee on the side of a recliner and since then her knee has not been the same. She had lost weight and gained some weight again and her knee started to hurt her again, she then lost some more weight but since then feels her knee pain has not improved. She found mild relief in her last injection, she would like to discuss gel injections. She would also like to discuss a referral for PT. [facility] Medical History Asthma C. 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 Steroid injection have not helped and I recommend PT and gel injections Coding Level of Care Code Est Pt Level 3 (05180) Diagnoses Tear of medial meniscus of right knee S83.241A
[2023-09-04 10:03] VITALS: BMI 42.2
== END 2023-09-04 10:30 | disposition home or self-care (01) ==
PROVIDERS: PCP Internal Medicine; Visit Provider Orthopaedic Surgery
DX: S83.241A Other tear of medial meniscus, current injury, right knee, initial encounter (principal)
CPT/HCPCS: 99213

== ENCOUNTER → 2023-09-04 09:42 | Outpatient (BNVA) | payer OTHER, SELFPAY | PROVIDERS: PCP Internal Medicine; Visit Provider Orthopaedic Surgery | DX: S83.241D Other tear of medial meniscus, current injury, right knee, subsequent encounter (principal) | CPT/HCPCS: 99212 ==

== ENCOUNTER 2023-11-02 09:13 | Outpatient (AMB) | payer OTHER, SELFPAY ==
--- NOTE | 2023-11-02 09:17 | MHC.OFFVIS ---
Intake Visit Reasons: OV - Right Knee Euflexxa #1 Intake Note: Elli is a 52 year old female who presents today for her right knee Euflexxa injection #1. She reports that she is quite anxious for this injection. Allergies moxifloxacin [Avelox] Allergy (Unknown, Verified 11/02/23 09:17) Anaphylaxis penicillin V Allergy (Unknown, Verified 11/02/23 09:17) Hives Penicillins [PENICILLINS] Allergy (Unknown, Verified 11/02/23 09:17) HIVES From AVELOX Allergy (Unknown, Uncoded 11/02/23 09:17) THROAT SWELLS HPI HPI OV - Right Knee Euflexxa #1: Details: Here for right knee Euflexxa. PFSH Medical History Asthma C. 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 Site was prepped using aseptic technique. Patient tolerated the procedure well. Primary Site: right knee Approach Used: anterolateral Coding 33612 - Large joint Procedure code (CPT) selection complete Assessment & Plan Assessment & Plan (1) Arthritis of right knee: Code(s): M17.11 - Unilateral primary osteoarthritis, right knee Category: Medical Plan: Injected Euflexxa 1/3. Follow up 1 week. Coding Level of Care Code Est Pt Level 2 (79290) Diagnoses Arthritis of right knee M17.11 CPT Codes Coding - Large joint: 16422 - Large joint ([id number])
== END 2023-11-02 09:29 | disposition home or self-care (01) ==
PROVIDERS: PCP Internal Medicine; Visit Provider Orthopaedic Surgery
DX: M17.11 Unilateral primary osteoarthritis, right knee (principal)
CPT/HCPCS: 20610

== ENCOUNTER → 2023-11-02 09:13 | Outpatient (BNVA) | payer OTHER, SELFPAY | PROVIDERS: PCP Internal Medicine; Visit Provider Orthopaedic Surgery | DX: M17.11 Unilateral primary osteoarthritis, right knee (principal) | CPT/HCPCS: 20610; J7323 ==

== ENCOUNTER 2023-11-09 12:17 | Outpatient (AMB) | payer OTHER, SELFPAY ==
--- NOTE | 2023-11-09 12:39 | MHC.OFFVIS ---
Vital Signs 11/09/23 12:40 Height 5 ft 3 in Weight 238 lb BMI 42.2 Intake Visit Reasons: OV - Right Knee Euflexxa #2 Intake Note: Elli is a 52 year old female who presents today for her second right knee Euflexxa injection. Patient reports that she is doing well and is nervous for her injection today. Allergies moxifloxacin [Avelox] Allergy (Unknown, Verified 11/09/23 12:40) Anaphylaxis penicillin V Allergy (Unknown, Verified 11/09/23 12:40) Hives Penicillins [PENICILLINS] Allergy (Unknown, Verified 11/09/23 12:40) HIVES From AVELOX Allergy (Unknown, Uncoded 11/09/23 12:40) THROAT SWELLS HPI HPI OV - Right Knee Euflexxa #2: Details: Elli is a 52 year old female who presents today for her second right knee Euflexxa injection. Patient reports that she is doing well and is nervous for her injection today. PFSH Medical History Asthma C. 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 Site was prepped using aseptic technique. Patient tolerated the procedure well. Primary Site: right knee Approach Used: anterolateral Coding 88213 - Large joint Procedure code (CPT) selection complete Assessment & Plan Assessment & Plan (1) Arthritis of right knee: Code(s): M17.11 - Unilateral primary osteoarthritis, right knee Category: Medical Plan: Euflexxa 2/3 Coding Level of Care Code Est Pt Level 2 (39849) Diagnoses Arthritis of right knee M17.11 CPT Codes Coding - Large joint: 30500 - Large joint ([id number])
[2023-11-09 12:40] VITALS: BMI 42.2
== END 2023-11-09 16:48 ==
PROVIDERS: PCP Internal Medicine; Visit Provider Orthopaedic Surgery
DX: M17.11 Unilateral primary osteoarthritis, right knee (principal)
CPT/HCPCS: 20610

== ENCOUNTER → 2023-11-09 12:17 | Outpatient (BNVA) | payer OTHER, SELFPAY | PROVIDERS: PCP Internal Medicine; Visit Provider Orthopaedic Surgery | DX: M17.11 Unilateral primary osteoarthritis, right knee (principal) | CPT/HCPCS: 20610; J7323 ==

== ENCOUNTER 2023-11-16 11:28 | Outpatient (AMB) | payer OTHER, SELFPAY ==
--- NOTE | 2023-11-16 11:37 | MHC.OFFVIS ---
Intake Visit Reasons: OV - Right Knee Euflexxa #3 Allergies moxifloxacin [Avelox] Allergy (Unknown, Verified 11/09/23 12:40) Anaphylaxis penicillin V Allergy (Unknown, Verified 11/09/23 12:40) Hives Penicillins [PENICILLINS] Allergy (Unknown, Verified 11/09/23 12:40) HIVES From AVELOX Allergy (Unknown, Uncoded 11/09/23 12:40) THROAT SWELLS HPI HPI OV - Right Knee Euflexxa #3: Details: 3/3 Euflexxa PFSH Medical History Asthma C. 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 She may follow up as needed. Coding Level of Care Code Est Pt Level 2 (90496) Diagnoses Arthritis of right knee M17.11
== END 2023-11-16 12:12 | disposition home or self-care (01) ==
PROVIDERS: PCP Internal Medicine; Visit Provider Orthopaedic Surgery
DX: M17.11 Unilateral primary osteoarthritis, right knee (principal)
CPT/HCPCS: 20610

== ENCOUNTER → 2023-11-16 11:28 | Outpatient (BNVA) | payer OTHER, SELFPAY | PROVIDERS: PCP Internal Medicine; Visit Provider Orthopaedic Surgery | DX: M17.11 Unilateral primary osteoarthritis, right knee (principal) | CPT/HCPCS: 20610; J7323 ==

== ENCOUNTER 2023-11-22 10:00 | Outpatient (RCR) | payer OTHER, SELFPAY ==
--- NOTE | 2023-10-13 16:18 | MHC.PT.EP ---
[facility] [place] Office [place] Office [place] Office [address] Ramírez Conrad [address] [phone] F: [phone] F: [phone] F: [phone] F: [phone] Physical Therapy Plan of Care Date of Evaluation: 10/13/23 Date of Surgery: Diagnosis: RIGHT knee Unilateral Primary Osteoarthritis (MD Dx) RIGHT knee medial meniscus tears with meniscal extrusion. Moderate OA confirmed on MRI (PT Dx) (RS) Assessment: Patient is a pleasant 52 y.o. female who is referred to PT by Dr. Mahesh Sanford MD of [facility] Orthopedics with Dx of RIGHT knee Unilateral Primary Osteoarthritis. PT diagnosis is medial meniscus tears with meniscal extrusion. She has moderate OA confirmed on MRI of RIGHT knee. Patient impairments include knee pain, knee swelling, limited knee ROM, weakness in hip and knee, antalgic gait. Patient current functional limitations are ascend/descend stairs, bend/squat, in/out of bathtub, has to put on shoes/socks, ambulation. Patient will benefit from skilled PT to address aforementioned impairments and functional limitations to meet established goals. Frequency and Duration: The patient will be seen 2x/week for 4 weeks Short Term Goals: 2 weeks Patient demonstrates consistency and independence with HEP to self manage symptoms. Patient is able to demonstrate proper use of cane to offload RIGHT knee to use as needed for knee pain. Longterm Goals: 4 weeks Patient presents with increased RIGHT knee flexion 95 degrees to be able to bend/squat to low chair/surface. Patient presents with increased RIGHT knee quad strength 4/5 to be able to ascend/descend stairs to bedroom with less strain. Treatment Plan: Modalities to reduce pain, spasms and effusion. Manual therapy to restore motion and function. Therapeutic exercise to improve strength and flexibility. Neuromuscular re-education for posture and balance. Therapeutic activities to return to functional activities of daily living. Electronically signed by: Jae Luna, PT, DPT Please sign and return to therapist. Thank you for your referral.
--- NOTE | 2024-01-16 09:54 | MHC.PT.DC ---
[facility] [place] Office [place] Office [place] Office [address] Ramírez Conrad [address] [phone] F: [phone] F: [phone] F: [phone] F: [phone] Physical Therapy Discharge Report Diagnosis: RIGHT knee Unilateral Primary Osteoarthritis (MD Dx) RIGHT knee medial meniscus tears with meniscal extrusion. Moderate OA confirmed on MRI (PT Dx) (RS) Date of Surgery: Date of Evaluation: 10/13/23 Date of Discharge: 01/16/24 Treatments to Date: 8 Cancellations to Date: 1 No Shows to Date: Discharge Status: Independent with HEP Patient Elected to Stop Discharge Summary: Elli ceased attending PT on her own accord. She was last on 11/22/23 and the assessment reads, Since Elli has some acute knee pain I did not have her perform active warm-up. She reports only pain when performing SAQ with more reps. She reports pain relief with use of TENS was given info for home unit. She is therefore discharged from PT at this time. Electronically signed by: Jae Luna, PT, DPT Please sign and return to therapist. Thank you for your referral.
== END 2024-01-16 09:54 | disposition home or self-care (01) ==
LOC: HO.PT 10:00
PROVIDERS: PCP Internal Medicine; Visit Provider Orthopaedic Surgery
DX: M17.11 Unilateral primary osteoarthritis, right knee (principal)
CPT/HCPCS: 97014; 97110; 97161

== ENCOUNTER 2024-07-25 11:45 | Outpatient (AMB) | payer OTHER, SELFPAY ==
[2024-07-25 11:51] VITALS: BMI 42.2
--- NOTE | 2024-07-25 11:51 | MHC.OFFVIS ---
Vital Signs 07/25/24 11:51 Height 5 ft 3 in Weight 238 lb BMI 42.2 Intake Visit Reasons: Right Knee Euflexxa #1 Intake Note: Elli is a 53 year old female who presents today for repeat Right Knee Euflexxa, today is injection #1 Allergies moxifloxacin [Avelox] Allergy (Unknown, Verified 11/09/23 12:40) Anaphylaxis penicillin V Allergy (Unknown, Verified 11/09/23 12:40) Hives Penicillins [PENICILLINS] Allergy (Unknown, Verified 11/09/23 12:40) HIVES From AVELOX Allergy (Unknown, Uncoded 11/09/23 12:40) THROAT SWELLS HPI HPI Right Knee Euflexxa #1: Details: Elli is a 53 year old female who presents today for repeat Right Knee Euflexxa, today is injection #1 HPI Comments Details: Here for 1/3 Euflexxa right knee. PFSH Medical History Asthma C. 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 Site was prepped using aseptic technique. Patient tolerated the procedure well. Shoulders, Hips, Knees, Knee Large Joint Injection : Right Knee Coding Procedure code (CPT) selection complete Assessment & Plan Assessment & Plan (1) Arthritis of right knee: Code(s): M17.11 - Unilateral primary osteoarthritis, right knee Category: Medical Plan: Injected 1/3 Euflexxa. f/u one week Coding Level of Care Code Est Pt Level 2 (05215) Diagnoses Arthritis of right knee M17.11 CPT Codes Shoulders, Hips, Knees, - Knee Large Joint Injection : Right Knee ([id number])
--- OUTSIDE RECORDS SUMMARY | 2024-07-25 13:15 | XMS_ITS | Encounter Summary ---
Author Organization [facility] Address [address] [place] [address] Care Team Providers Care Business Line Controller Name Role Phone Krishan Zuniga MD Primary Care Provider Encounter Details Date Type Department Care Team ([facility] st Contact Info) Description 07/24/2024 Telephone Bariatric Surgery - [place] 175 [facility] [address] [place] [address] Yoav Parikh MD 175 [facility] 120 [place] [address] Social History Tobacco Use Types Packs/Day Years Used Date Smoking Tobacco: Never Smokeless Tobacco: Never Alcohol Use Standard Drinks/Week Comments Yes 0 (1 standard drink = 0.6 oz pur e alcohol) Housing Instability Answer Date Recorde d Are you worried that in the next 2 months you may not have stable housing? Yes 07/12/2024 Food Access & Nutrition Answer Date Rec orded Do you have access to a vari ety of food including fruits and vegetables? Yes 07/12/2024 Health Literacy Answer Date Recorded How often do you need to hav e someone help you when you read instructions, pamphlets, or other written material from your doctor or pharmacy? Rarely 07/12/2024 Caregiver: How often do you need to have someone help you when you read instructions, pamphlets, or other written material from your doctor or pharmacy? Not on file 07/12/2024 Financial Risk Answer Date Recorded How hard is it for you to pa y for the very basics like food, housing, medical care, and air conditioning / heating? Somewhat hard 07/12/2024 Transportation Answer Date Recorded Has the lack of transportati on kept you from meetings, work, or from getting things needed for daily living? No Has the lack of transportati on kept you from medical appointments or from getting medications? No 07/12/2024 Social Isolation Answer Date Recorded How often do you feel lonely or isolated from th ose around you? Always 07/12/2024 Food Risk Answer Date Recorded Within the past 12 months we worried whether our food would run out before we got money to buy more. Never true 07/12/2024 Within the past 12 months th e food we bought just didn't last and we didn't have money to get more. Never true 07/12/2024 Dependent Care Answer Date Recorded Do you need help finding or paying for care for your loved ones. For example, early childhood associate or elderly care for an older adult? No 07/12/2024 Education Answer Date Recorded Do you think completing more education or training, like finishing a GED, going to college, or learning a trade, would be helpful for you? No 07/12/2024 Employment and Income Answer Date Recor ded During the last four weeks, have you been actively looking for work? No 07/12/2024 Living Situation Answer Date Recorded What is your living situation? 0 07/12/2024 Comments No Sex and Gender Information Value Date Recorded Sex Assigned at Not on file Legal Sex Female 12:18 AM EST Gender Identity Not on file Sexual Orientation Not on file documented as of this encounter Progress Notes * Patty Elmore MA - 07/24/2024 11:17 AM EDT Pt states phentermine is not working and would like to try ozempic per your last visit documented in this encounter Plan of Treatment Upcoming Encounters Date Type Department Care Team (Late st Contact Info) Description 07/25/2024 3:45 PM EDT Office Visit Bariatric Surgery - [place] 175 [facility] [address] [place] [phone] Yoav Parikh MD 175 [facility] 120 [place] [address] 08/19/2024 9:45 AM EDT Office Visit Pulmonolgy - [place] [address] [place] [phone] Loraine Sawyer MD [address] [place] [address] 09/24/2024 9:00 AM EDT Consult [facility] - [place] [address] [place] [address] Timothy Webster MD [address] [place] [phone] 10/15/2024 9:00 AM EDT Office Visit Adult Medicine [facility] [place] [address] [place] [phone] Krishan Zuniga MD [address] [place] [address] documented as of this encounter Visit Diagnoses Not on filedocumented in this encounter Additional Health Concerns Assessment Noted Time PHQ-9 Depression Total Score: 18 025 4:23 PM EDT documented as of this encounter Care Teams Business Line Controller Relationship Specialty Start Date End Date Krishan Zuniga MD [address] [place] [phone] PCP - General Internal Medicine 02/08/24 documented as of this encounter
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
--- OUTSIDE RECORDS SUMMARY | 2024-07-25 13:15 | XMS_ITS | Encounter Summary ---
Author Organization [facility] Address [address] [place] [address] Care Team Providers Care Primer Inserting Machine Adjuster Name Role Phone Lisa Cruz MD Primary Care Provider [phone] Encounter Details Date Type Department Care Team (Late st Contact Info) Description 02/22/2021 Orders Only [facility] [address] [place] [phone] Provider, Unknown, [address] [place] [address] Social History Tobacco Use Types Packs/Day Years [...] on file documented as of this encounter Plan of Treatment Not on file documented as of this encounter Procedures * Due to [place] [employer] law, this organization might not be sharing negative HIV tests. Procedure Name Priority Date/Time Associated Diagnosis Comments AMB EXTERNAL MRI BRAIN, OUTS SAMUEL RESULT Routine 05/12/2020 documented in this encounter Results * Due to [place] [employer] law, this organization might not be sharing negative HIV tests. * MRI Brain, Outside Result (05/12/2020) Anatomical Region Laterality Modality Other us Unknown Provider AMB EXTERNAL RESULT PROCEDUR ES Final Result documented in this encounter Visit Diagnoses Not on filedocumented in this encounter Care Teams Primer Inserting Machine Adjuster Relationship Specialty Start Date End Date Lisa Cruz MD PCP - General Internal Medicine 02/22/21 documented as of this encounter
--- OUTSIDE RECORDS SUMMARY | 2024-07-25 13:15 | XMS_ITS | Encounter Summary ---
Author Organization [facility] Address [address] [place] [address] Care Team Providers Care Inspector Metal Fabricating Name Role Phone Krishan Zuniga MD Primary Care Provider Reason for Visit * Reason Onset Date Comments Med Refill 06/26/2024 topiramate Encounter Details Date Type Department Care Team (Late Contact Info) Description 06/26/2024 Telephone Bariatric Surgery [facility] [address] [phone] Yoav Parikh MD [address] [address] Med Refill (topiramate) Social History Tobacco Use Types Packs/Day Years Used Date Smoking Tobacco: Never Smokeless Tobacco: Never Alcohol Use Standard Drinks/Week Comments Yes 0 (1 standard drink = 0.6 oz pur e alcohol) Comments No Sex and Gender Information Value Date Recorded Sex Assigned at Not on file Legal Sex Female 12:18 AM EST Gender Identity Not on file Sexual Orientation Not on file documented as of this encounter Progress Notes * Tasia Guerin - 06/26/2024 2:11 PM EDT Patient is requesting script for Topiramate 50 mg documented in this encounter Plan of Treatment Upcoming Encounters Date Type Department Care Team (Late Contact Info) Description 07/25/2024 3:45 PM EDT Office Visit Bariatric Surgery [facility] [address] [phone] Yoav Parikh MD 175 [facility] 120 [place] [address] 08/19/2024 9:45 AM EDT Office Visit Pulmonolgy - [place] [address] [place] [phone] Loraine Sawyer MD 175 [facility] 200 [place] [address] 09/24/2024 9:[address] [facility] for [facility] - [place] [address] [place] [phone] Timothy Webster MD [facility] [address] [place] [phone] 10/15/2024 9:00 AM EDT Office Visit Adult Medicine [facility] [address] [place] [phone] Krishan Zuniga MD [address] [place] [address] documented as of this encounter Visit Diagnoses Not on filedocumented in this encounter Care Teams Inspector Metal Fabricating Relationship Specialty Start Date End Date Krishan Zuniga MD [address] [place] [address] PCP - General Internal Medicine 02/08/24 documented as of this encounter
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
--- OUTSIDE RECORDS SUMMARY | 2024-07-25 13:15 | XMS_ITS | Clinical Summary ---
Author Organization [facility] Address [address] [place] [address] Care Team Providers Care Informatics Pharmacist Name Role Phone Lisa Cruz MD Primary Care Provider [phone] Allergies Active Allergy Reactions Criticality Noted Date Comments Moxifloxacin Hives 10/10/2009 [place] as if her throat was swelling along [...] 03/07/2005 Depression 03/07/2005 Overview (02/08/2023): With anxiety Family History Relation Name Status Comments Father Alive Mother Alive Social History Tobacco Use Types Packs/Day Years [...] 02/22/2021 1:45 PM EST Plan of Treatment Health Maintenance Due Date Last Done Comments Cervical Cancer Screening 1968 Cologuard 1968 Colon Cancer Screening 1968 Colonoscopy 1968 FOBT / Fit Test 1968 HIV Screening 1968 HPV and Pap Smear 1968 Hepatitis C Screening 1968 Pap Smear 1968 Sigmoidoscopy 1968 Hepatitis B Vaccines (1 of 3 - 19+ 3-dose series) 11/26/1987 Mammogram 2008 Zoster Vaccines (1 of 2) 2018 Pneumococcal Vaccine: 50+ Ye ars (2 of 2 - PCV) 03/22/2022 03/22/2021 COVID-19 Vaccine (2023-2 5 season) 2023 11/02/2022, 01/14/2022, 02/23/2021, Additional history exists Alcohol/Substance Use Screening 03/20/2024 Depression Screening and Follow-Up 03/20/2024 Social Drivers of Health Tiff ual Screening 03/20/2024 Influenza Vaccine (Season Ended) 2024 11/02/2022, 01/03/2022, 12/06/2020, Additional history exists DTaP,Tdap,and Td Vaccines (2 - Td or Tdap) 11/09/2030 11/09/2020, 06/27/2017, 04/08/2004 RSV Vaccine (60+ years old a nd patients) (1 - 1-dose 75+ series) 11/26/2043 Insurance [employer] Care Teams Informatics Pharmacist Relationship Specialty Start Date End Date Lisa Cruz MD PCP - General Internal Medicine 02/22/21
== END 2024-07-25 12:04 | disposition home or self-care (01) ==
LOC: HO.HOS 11:45
PROVIDERS: PCP Internal Medicine; Visit Provider Orthopaedic Surgery
DX: M17.11 Unilateral primary osteoarthritis, right knee (principal)
CPT/HCPCS: 20610

== ENCOUNTER → 2024-07-25 11:45 | Outpatient (BNVA) | payer OTHER, SELFPAY | PROVIDERS: PCP Internal Medicine; Visit Provider Orthopaedic Surgery | DX: M17.11 Unilateral primary osteoarthritis, right knee (principal) | CPT/HCPCS: 20610; J7323 ==

== ENCOUNTER 2024-08-01 10:46 | Outpatient (AMB) | payer OTHER, SELFPAY ==
[2024-08-01 10:53] VITALS: BMI 42.2
--- NOTE | 2024-08-01 10:53 | MHC.OFFVIS ---
Vital Signs 08/01/24 10:53 Height 5 ft 3 in Weight 238 lb BMI 42.2 Intake Visit Reasons: Right Knee Euflexxa #2 Intake Note: Elli is a 53 year old female who presents today for the second right knee euflexxa of the series. Allergies moxifloxacin [Avelox] Allergy (Unknown, Verified 11/09/23 12:40) Anaphylaxis penicillin V Allergy (Unknown, Verified 11/09/23 12:40) Hives Penicillins [PENICILLINS] Allergy (Unknown, Verified 11/09/23 12:40) HIVES From AVELOX Allergy (Unknown, Uncoded 11/09/23 12:40) THROAT SWELLS HPI HPI Right Knee Euflexxa #2: Details: Here for Euflexxa 2/3. No changes since last visit. PFSH Medical History Asthma C. 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 Site was prepped using aseptic technique. Patient tolerated the procedure well. Procedure: The patient tolerated the procedure well Shoulders, Hips, Knees, Knee Large Joint Injection : Right Knee Coding Procedure code (CPT) selection complete Assessment & Plan Assessment & Plan (1) Arthritis of right knee: Code(s): M17.11 - Unilateral primary osteoarthritis, right knee Category: Medical Plan: Gel injected right knee. No issues. Follow up 1 week. Coding Level of Care Code Est Pt Level 2 (64038) Diagnoses Arthritis of right knee M17.11 CPT Codes Shoulders, Hips, Knees, - Knee Large Joint Injection : Right Knee ([id number])
--- OUTSIDE RECORDS SUMMARY | 2024-08-01 11:53 | XMS_ITS | Encounter Summary ---
Author Organization [facility] Address [address] [place] [address] Care Team Providers Care Web Development Consultant Name Role Phone Krishan Zuniga MD Primary Care Provider [phone] Reason for Visit * Reason Onset Date Comments Med Refill 06/26/2024 topiramate Encounter Details Date Type Department Care Team ([facility] st Contact Info) Description 06/26/2024 Telephone Bariatric Surgery - [place] [address] [facility] [address] [place] [address] Yoav Parikh MD [address] [facility] [address] [place] [address] Med Refill (topiramate) Social History Tobacco Use [...] care for your loved ones. For example, childcare administrator or elderly care for an older adult? [...] Care Team (Late st Contact Info) Description 08/14/2024 9:30 AM EDT Appointment Radiology Department - [address] [phone] 08/19/2024 9:45 AM EDT Office Visit Pulmonolgy - [address] [place] [address] Loraine Sawyer MD [address] [facility] [address] [place] [address] 09/24/2024 9:00 AM EDT Consult [facility] - [place] [address] [facility] [address] [facility] [address] [place] [phone] Timothy Webster MD [address] [facility] [address] [place] [phone] 10/15/2024 9:00 AM EDT Office Visit Adult Medicine [address] [phone] Krishan Zuniga MD [address] [place] [phone] documented as of this encounter Visit Diagnoses Not on filedocumented in this encounter Care Teams Web Development Consultant Relationship Specialty Start Date End Date Krishan Zuniga MD [address] [place] [phone] PCP - General Internal Medicine 02/08/24 documented as of this encounter
--- OUTSIDE RECORDS SUMMARY | 2024-08-01 11:53 | XMS_ITS | Encounter Summary ---
Author Organization [facility] Address [address] [place] [address] Care Team Providers Care Medical Education Specialist Name Role Phone Lisa Cruz MD Primary Care Provider Krishan Mendoza Primary Care Provider [phone] Encounter Details Date Type Department Care Team Description 01/07/2021 Telephone Adult Medicine [address] [address] Lisa Cruz MD Social History Tobacco Use Types Packs/Day Years Used Date Smoking Tobacco: Never Smokeless Tobacco: Never Alcohol Use Standard Drinks/Week Comments Yes 0 (1 standard drink = 0.6 oz pur e alcohol) rarely possibly once yearly Sex Assigned at Date Recorded Not on file Job Start Date Occupation Industry Not on file Not on file Not on file documented as of this encounter Plan of Treatment Not on file documented as of this encounter Visit Diagnoses Not on filedocumented in this encounter Care Teams Medical Education Specialist Relationship Specialty Start Date End Date Lisa Cruz MD PCP - General Internal Medicine 01/12/11 10/17/21 Krishan Zuniga [address] [place] [address] [phone] PCP - General Internal Medicine 10/18/21 documented as of this encounter
--- OUTSIDE RECORDS SUMMARY | 2024-08-01 11:53 | XMS_ITS | Encounter Summary ---
Author Organization [facility] Address [address] [place] [address] Care Team Providers Care Shipfitter Name Role Phone Lisa Cruz MD Primary Care Provider Krishan Mendoza Primary Care Provider [phone] Reason for Visit * Reason Onset Date Comments refill request 01/07/2014 Encounter Details Date Type Department Care Team Description 01/07/2014 Refill Adult Medicine [address] [address] Lisa Cruz MD refill request Social History Tobacco Use Types Packs/Day Years Used Date Smoking Tobacco: Never Smokeless Tobacco: Never Alcohol Use Standard Drinks/Week Comments No 0 (1 standard drink = 0.6 oz pur e alcohol) Rarely possibly once yearly Sex Assigned at Date Recorded Not on file Job Start Date Occupation Industry Not on file Not on file Not on file documented as of this encounter Miscellaneous Notes * Telephone Encounter - Kassandra Xiao M.A. - 01/07/2014 4:01 PM EDT UDS completed. 2 Placed in [facility] dept * Telephone Encounter - Marissa Garcia L.P.N. - 01/07/2014 1:41 PM EDT Pt was notified to complete a random urine drug screen in our [facility] by 01/08/2014 The patient was also instructed that failure to complete this urine drug screen, as requested, would jeopardize their Controlled Substance Contract with [facility]. The patient expressed understanding of the instructions and confirmed that they will arrive by that date. Script with pod * Telephone Encounter - Lisa Cruz - 01/07/2014 12:11 PM EDT Pt needs uds today * Telephone Encounter - Kassandra Xiao M.A. - 01/07/2014 10:58 AM EDT Controlled substance contract and last issue date of medication reviewed. Patient is due for medication. Component Value Date URINEOXYCOD POSITIVE 12/21/2012 URBENZO NEGATIVE 12/21/2012 URAMPHETAMIN NEGATIVE 12/21/2012 URMARIJUANA NEGATIVE 12/21/2012 UROPIATES NEGATIVE 12/21/2012 URBARBITUATE NEGATIVE 12/21/2012 URCOCAINE NEGATIVE 12/21/2012 HYDROCODONE Negative 12/21/2012 Pt placed on reminder list. * Telephone Encounter - Mckayla Dior - 01/07/2014 10:49 AM EDT Patient would like script to be: patient sampler pickup WHEN WAS THE PATIENT'S LAST APPOINTMENT IN ADULT MEDICINE? 01/03/14 WHEN WAS THE LAST TIME THE PATIENT SAW THEIR PCP? Same as above Does patient have an upcoming appointment? Yes 04/03/14 (THE MEDICATION REQUESTED IS ON THE MED LIST ABOVE) All of the medications requested were on the CURRENT MEDS list Did you check the Pharmacy information above?: YES Patient wants: 30 -day supply Is this a mail order prescription request ? NO Patients current insurance carrier is: [place] [facility] / Plan: FFS HMO $0 RODRIGO [id number] / Product Type: MEDICAID RISK documented in this encounter Plan of Treatment Not on file documented as of this encounter Results * ASSAY, DIHYDROCODEINONE (01/07/2014 3:37 PM EDT) HYDROCODONE UR GCMS Negative . ng/mL 01/11/2014 1:08 PM EDT [facility] HYDR[facility] GCMS Negative . ng/mL 01/11/2014 1:08 PM EDT [facility] Comment: Performed at: ??[facility] [address] ??[id number] Investigator Welfare: Sha Mittal MD, Phone: ??[phone] 01/07/2014 3:37 PM EDT 01/07/2014 3:38 PM EDT Lisa Cruz MD LAB Performing Organization Address [facility] de Phone Number [facility] * OXYCODONE, URINE (01/07/2014 3:37 PM EDT) URINE OXYCODONE LEVEL NEGATIVE NEGATIVE 01/07/2014 6:56 PM EDT [facility] 01/07/2014 3:37 PM EDT 01/07/2014 3:38 PM EDT Lisa Cruz MD LAB Performing Organization Address [facility] Co de Phone Number [place] [id number] [facility] * (ABNORMAL) DRUG OF ABUSE SCREEN (01/07/2014 3:37 PM EDT) AMPHETAMINE, URINE NEGATIVE NEGATIVE 01/07/2014 6:56 PM EDT [facility] BARBITURATES, URINE NEGATIVE NEGATIVE 01/07/2014 6:56 PM EDT [facility] BENZODIAZEPINE, URINE POSITIVE(A) NEGATIVE 01/07/2014 6:56 PM EDT [facility] Comment: Semi-quantitative urine assay for screening purposes only. Unconfirmed screening results should not be used for non-medical purposes. ALTERNATE METHOD CONFIRMATION DONE UPON REQUEST ONLY COCAINE, URINE NEGATIVE NEGATIVE 01/07/2014 6:56 PM EDT [facility] OPIATES, URINE NEGATIVE NEGATIVE 01/07/2014 6:56 PM EDT [facility] MARIJUANA(THC), URINE NEGATIVE NEGATIVE 01/07/2014 6:56 PM T [facility] 01/07/2014 3:37 PM EDT 01/07/2014 3:38 PM EDT Lisa Cruz MD LAB [address] documented in this encounter Visit Diagnoses Diagnosis Cervicalgia- Primary Encounter for long-term (current) use of other medications documented in this encounter Care Teams Shipfitter Relationship Specialty Start Date End Date Lisa Cruz MD PCP - General Internal Medicine 01/12/11 10/17/21 Krishan Zuniga [address] [place] [address] PCP - General Internal Medicine 10/18/21 documented as of this encounter
--- OUTSIDE RECORDS SUMMARY | 2024-08-01 11:53 | XMS_ITS | Encounter Summary ---
Author Organization [facility] Address [address] [place] [address] Care Team Providers Care Rip Tailer Name Role Phone Lisa Cruz MD Primary Care Provider Krishan Mendoza Primary Care Provider [phone] Reason for Visit * Reason Comments E-prescribe Rx Request Encounter Details Date Type Department Care Team Description 03/29/2017 Refill Adult Medicine [address] [address] Lisa Cruz MD E-prescribe Rx Request Social History Tobacco Use Types Packs/Day Years [...] encounter Miscellaneous Notes * Telephone Encounter - Jennifer Holt - 03/29/2017 10:18 AM EST Patient would like script to be: E-PRESCRIBED/FAXED TO PHARMACY WHEN WAS THE PATIENT'S LAST APPOINTMENT IN ADULT MEDICINE? 03/09/17 WHEN WAS THE LAST TIME THE PATIENT SAW THEIR PCP? 03/09/17 Does patient have an upcoming appointment? 06/27/17 (THE MEDICATION REQUESTED IS ON THE MED LIST ABOVE) All of the medications requested were on the CURRENT MEDS list Did you check the Pharmacy information above?: YES Patient wants: 30 -day supply Is this a mail order prescription request ? NO Patients current insurance carrier is: Payor: [employer] FFS / Plan: FFS HMO $0 [employer] [id number] / Product Type: MEDICAID RISK documented in this encounter Plan of Treatment Not on file documented as of this encounter Visit Diagnoses Not on filedocumented in this encounter Care Teams Rip Tailer Relationship Specialty Start Date End Date Lisa Cruz MD PCP - General Internal Medicine 01/12/11 10/17/21 Krishan Zuniga [address] [place] [address] PCP - General Internal Medicine 10/18/21 documented as of this encounter
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
--- OUTSIDE RECORDS SUMMARY | 2024-08-01 11:53 | XMS_ITS | Encounter Summary ---
Author Organization [facility] Address [address] [place] [address] Care Team Providers Care Coal Pulverizer Operator Name Role Phone Krishan Zuniga Primary Care Provider [phone] Encounter Details Date Type Department Care Team Description 11/01/2022 Orders Only Adult Medicine [address] [place] [address] [address] Howard Pinto, PAParulC [address] [place] [address] New onset of headaches after age 48 Social History Tobacco Use Types Packs/Day Years Used Date Smoking Tobacco: Never Smokeless Tobacco: Never Alcohol Use Standard Drinks/Week Comments Yes 0 (1 standard drink = 0.6 oz pur e alcohol) rarely possibly once yearly Sex Assigned at Date Recorded Not on file Job Start Date Occupation Industry Not on file Not on file Not on file COVID-19 Exposure Response Date Recorded In the last 10 days, have yo u been in contact with someone who was confirmed or suspected to have Coronavirus/COVID-19? No / Unsure 10/28/2022 9:59 AM EDT documented as of this encounter Plan of Treatment Not on file documented as of this encounter Procedures Procedure Name Priority Date/Time Associated Diagnosis Comments MRI OF BRAIN NO CONTRAST Routine 10/31/2022 New onset of headaches after age 48 documented in this encounter Results * MRI OF BRAIN NO CONTRAST (10/31/2022) 10/31/2022 Howard Pinto PA-C MRI [facility] [address] [facility] documented in this encounter Visit Diagnoses Diagnosis New onset of headaches after age 48 Headache documented in this encounter Care Teams Coal Pulverizer Operator Relationship Specialty Start Date End Date Krishan Zuniga [address] [place] [address] PCP - General Internal Medicine 10/18/21 documented as of this encounter
--- OUTSIDE RECORDS SUMMARY | 2024-08-01 11:53 | XMS_ITS | Encounter Summary ---
Author Organization [facility] Address [address] [place] [address] Care Team Providers Care Ict Security Specialist Name Role Phone Lisa Cruz MD Primary Care Provider Krishan Mendoza Primary Care Provider [phone] Reason for Visit * Reason Comments E-prescribe Rx Request Encounter Details Date Type Department Care Team Description 03/22/2019 Refill Medical Records [address] [place] [address] Loli Maldonado PA [address] [place] [address] E-prescribe Rx Request Social History Tobacco Use [...] encounter Miscellaneous Notes * Telephone Encounter - Angel Escobedo M.A. - 03/25/2019 12:15 PM EST Faxed to pharmacy * Telephone Encounter - Hetal Souza M.A. - 03/25/2019 7:24 AM EST This was filled on 03/12/19 with 3 refills, but it never went through. Please resign. * Telephone Encounter - Kari Jainngashalom - 03/24/2019 3:10 PM EST Patient would like script to be: E-PRESCRIBED/FAXED TO PHARMACY WHEN WAS THE PATIENT'S LAST APPOINTMENT IN ADULT MEDICINE? 03/06/19 WHEN WAS THE LAST TIME THE PATIENT SAW THEIR PCP? 01/15/19 Does patient have an upcoming appointment? Will (THE MEDICATION REQUESTED IS ON THE MED LIST ABOVE) All of the medications requested were on the CURRENT MEDS list Did you check the Pharmacy information above?: NO Patient wants: 30 -day supply Is this a mail order prescription request ? NO If the refill is from a FAXED refill request what is the RX # listed on the fax? N/A Patients current insurance carrier is: Payor: [employer] FFS / Plan: xiao qu wu you [facility] ALLIANCE / Product Type: MEDICAID RISK documented in this encounter Plan of Treatment Not on file documented as of this encounter Visit Diagnoses Not on filedocumented in this encounter Care Teams Ict Security Specialist Relationship Specialty Start Date End Date Lisa Cruz MD PCP - General Internal Medicine 01/12/11 10/17/21 Krishan Zuniga [address] [place] [id number] PCP - General Internal Medicine 10/18/21 documented as of this encounter
--- OUTSIDE RECORDS SUMMARY | 2024-08-01 11:53 | XMS_ITS | Encounter Summary ---
Author Organization [facility] Address [address] [place] [address] Care Team Providers Care Green Chain Off Bearer Name Role Phone Lisa Cruz MD Primary Care Provider Krishan Mendoza Primary Care Provider [phone] Reason for Visit * Reason Comments E-prescribe Rx Request Encounter Details Date Type Department Care Team Description 08/31/2017 Refill Adult Medicine [address] [address] Caroline Sanchez APRN E-prescribe Rx Request Social History Tobacco Use [...] encounter Miscellaneous Notes * Telephone Encounter - Marla Navas - 08/31/2017 9:28 AM EDT Patient would like script to be: E-PRESCRIBED/FAXED TO PHARMACY WHEN WAS THE PATIENT'S LAST APPOINTMENT IN ADULT MEDICINE? 06/27/2017 WHEN WAS THE LAST TIME THE PATIENT SAW THEIR PCP? 05/23/2017 Does patient have an upcoming appointment? No-unable to reach left [facility] to call for appointment due to refill request. Appt due 09/26/2017 (THE MEDICATION REQUESTED IS ON THE MED LIST ABOVE) All of the medications requested were on the CURRENT MEDS list Did you check the Pharmacy information above?: YES Patient wants: 30 -day supply Is this a mail order prescription request ? NO Patients current insurance carrier is: Payor: [employer] FFS / Plan: [employer] / Product Type: MEDICAID RISK documented in this encounter Plan of Treatment Not on file documented as of this encounter Visit Diagnoses Not on filedocumented in this encounter Care Teams Green Chain Off Bearer Relationship Specialty Start Date End Date Lisa Cruz MD PCP - General Internal Medicine 01/12/11 10/17/21 Krishan Zuniga [address] [place] [address] PCP - General Internal Medicine 10/18/21 documented as of this encounter
--- OUTSIDE RECORDS SUMMARY | 2024-08-01 11:53 | XMS_ITS | Encounter Summary ---
Author Organization [facility] Address [address] [place] [address] Care Team Providers Care Visiting Nurse Name Role Phone Lisa Cruz MD Primary Care Provider Krishan Mendoza Primary Care Provider [phone] Reason for Visit * Reason Comments E-prescribe Rx Request Encounter Details Date Type Department Care Team Description 02/19/2019 Refill Medical Records [address] [place] [address] Loli Maldonado PA [address] [place] [address] E-prescribe Rx Request Social History Tobacco Use [...] encounter Miscellaneous Notes * Telephone Encounter - Lisa Cruz - 02/20/2019 8:33 AM EST Flovent 110 sent recently. * Telephone Encounter - Adriana Pacheco M.A. - 02/20/2019 8:05 AM EST Lab Results Component Value Date NA 141 01/31/2019 K 3.7 01/31/2019 CO2 28 01/31/2019 CL 107 01/31/2019 BUN 9 01/31/2019 CREAT 0.65 01/31/2019 GLU 90 01/31/2019 CA 10.1 01/31/2019 GFR > 60 01/31/2019 Last ov with Michelle Murphy 01/2019 * Telephone Encounter - Larissa Ramakrishna - 02/20/2019 7:57 AM EST Patient would like script to be: E-PRESCRIBED/FAXED TO PHARMACY WHEN WAS THE PATIENT'S LAST APPOINTMENT IN ADULT MEDICINE? 02/01/19 WHEN WAS THE LAST TIME THE PATIENT SAW THEIR PCP? 01/15/19 Does patient have an upcoming appointment? No-no answer, no voicemail documented x2 (Please verify telephone contact #'s at next phone call) (THE MEDICATION REQUESTED IS ON THE MED [...] N/A Patients current insurance carrier is: Payor: [employer] FFS / Plan: [employer] ALLIANCE / Product Type: MEDICAID RISK documented in this encounter Plan of Treatment Not on file documented as of this encounter Visit Diagnoses Not on filedocumented in this encounter Care Teams Visiting Nurse Relationship Specialty Start Date End Date Lisa Cruz MD PCP - General Internal Medicine 01/12/11 10/17/21 Krishan Zuniga [address] [place] [address] PCP - General Internal Medicine 10/18/21 documented as of this encounter
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
--- OUTSIDE RECORDS SUMMARY | 2024-08-01 11:53 | XMS_ITS | Encounter Summary ---
Author Organization [facility] Address [address] [place] [address] Care Team Providers Care Process Development Chemist Name Role Phone Lisa Cruz MD Primary Care Provider Krishan Mendoza Primary Care Provider [phone] Encounter Details Date Type Department Care Team Description 07/17/2019 Olive Grader Report Medical Records [address] [place] [address] Gamal Burnett MD Social History Tobacco Use Types Packs/Day [...] on filedocumented in this encounter Care Teams Process Development Chemist Relationship Specialty Start Date End Date Lisa Cruz MD PCP - General Internal Medicine 01/12/11 10/17/21 Krishan Zuniga [address] [place] [id number] PCP - General Internal Medicine 10/18/21 documented as of this encounter
--- OUTSIDE RECORDS SUMMARY | 2024-08-01 11:53 | XMS_ITS | Encounter Summary ---
Author Organization [facility] Address [address] [place] [address] Care Team Providers Care Network Control Technician Name Role Phone Lisa Cruz MD Primary Care Provider Krishan Mendoza Primary Care Provider [phone] Reason for Visit * Reason Comments E-prescribe Rx Request Encounter Details Date Type Department Care Team Description 04/28/2018 Refill Adult Medicine [address] [address] Lisa Cruz MD E-prescribe Rx Request Social [...] encounter Miscellaneous Notes * Telephone Encounter - Mirta Rivas - 04/30/2018 9:16 AM EST Patient would like script to be: E-PRESCRIBED/FAXED TO PHARMACY WHEN WAS THE PATIENT'S LAST APPOINTMENT IN ADULT MEDICINE? 04/24/18 WHEN WAS THE LAST TIME THE PATIENT SAW THEIR PCP? 02/22/18 Does patient have an upcoming appointment? No-patient refused appointment, will call back to book appointment (THE MEDICATION REQUESTED IS ON THE MED [...] N/A Patients current insurance carrier is: Payor: [employer] FFS / Plan: [employer] ALLIANCE / Product Type: MEDICAID RISK documented in this encounter Plan of Treatment Not on file documented as of this encounter Visit Diagnoses Not on filedocumented in this encounter Care Teams Network Control Technician Relationship Specialty Start Date End Date Lisa Cruz MD PCP - General Internal Medicine 01/12/11 10/17/21 Krishan Zuniga [address] [place] [phone] PCP - General Internal Medicine 10/18/21 documented as of this encounter
--- OUTSIDE RECORDS SUMMARY | 2024-08-01 11:53 | XMS_ITS | Encounter Summary ---
Author Organization [facility] Address [address] [place] [address] Care Team Providers Care Lieutenant Fire Fighter Name Role Phone Lisa Cruz MD Primary Care Provider Krishan Mendoza Primary Care Provider [phone] Reason for Visit * Reason Onset Date Comments Medication 07/13/2021 Encounter Details Date Type Department Care Team Description 07/13/2021 Refill Gastroenterology - [place] [address] [facility] [address] [place] [address] Scott Raphael MD [address] [place] [address] Medication Social History Tobacco Use Types Packs/Day Years [...] suspected to have Coronavirus/COVID-19? No / Unsure 07/16/2021 10:56 AM EDT documented as of this encounter Plan of Treatment Not on file documented as of this encounter Visit Diagnoses Not on filedocumented in this encounter Care Teams Lieutenant Fire Fighter Relationship Specialty Start Date End Date Lisa Cruz MD PCP - General Internal Medicine 01/12/11 10/17/21 Krishan Zuniga [address] [place] [address] PCP - General Internal Medicine 10/18/21 documented as of this encounter
--- OUTSIDE RECORDS SUMMARY | 2024-08-01 11:53 | XMS_ITS | Encounter Summary ---
Author Organization [facility] Address [address] [place] [address] Care Team Providers Care Golf Club Repairer Name Role Phone Lisa Cruz MD Primary Care Provider Krishan Mendoza Primary Care Provider [phone] Reason for Visit * Reason Onset Date Comments REFERRAL 01/24/2020 Encounter Details Date Type Department Care Team Description 01/24/2020 Telephone Adult Medicine [address] [address] Lisa Cruz MD REFERRAL Social History Tobacco Use Types Packs/Day Years [...] Exposure Response Date Recorded In the last month, have you been in contact with someone who was confirmed or suspected to have Coronavirus / COVID-19? No / Unsure 12/27/2019 9:01 AM EDT documented as of this encounter Miscellaneous Notes * Telephone Encounter - Marla Navas - 01/24/2020 9:37 AM EST All attempts have been made to schedule patient with nutrition. documented in this encounter Plan of Treatment Not on file documented as of this encounter Visit Diagnoses Not on filedocumented in this encounter Care Teams Golf Club Repairer Relationship Specialty Start Date End Date Lisa Cruz MD PCP - General Internal Medicine 01/12/11 10/17/21 Krishan Zuniga [address] [place] [address] PCP - General Internal Medicine 10/18/21 documented as of this encounter
--- OUTSIDE RECORDS SUMMARY | 2024-08-01 11:53 | XMS_ITS | Encounter Summary ---
Author Organization [facility] Address [address] [place] [address] Care Team Providers Care Thread Tool Grinder Set Up Operator Name Role Phone Lisa Cruz MD Primary Care Provider Krishan Mendoza Primary Care Provider [phone] Reason for Visit * Reason Comments E-prescribe Rx Request Encounter Details Date Type Department Care Team Description 07/11/2019 Refill Adult Medicine [address] [address] Lisa Cruz MD E-prescribe Rx Request Social [...] encounter Miscellaneous Notes * Telephone Encounter - Burt [place] - 07/12/2019 7:40 AM EDT Patient would like script to be: E-PRESCRIBED/FAXED TO PHARMACY WHEN WAS THE PATIENT'S LAST APPOINTMENT IN ADULT MEDICINE?06/10/2019 WHEN WAS THE LAST TIME THE PATIENT SAW THEIR PCP? 01/15/19 Does patient have an upcoming appointment? (THE MEDICATION REQUESTED IS ON THE MED [...] N/A Patients current insurance carrier is: Payor: [employer] FFS / Plan: [employer] / Product Type: MEDICAID RISK documented in this encounter Plan of Treatment Not on file documented as of this encounter Visit Diagnoses Not on filedocumented in this encounter Care Teams Thread Tool Grinder Set Up Operator Relationship Specialty Start Date End Date Lisa Cruz MD PCP - General Internal Medicine 01/12/11 10/17/21 Krishan Zuniga [address] [place] [address] PCP - General Internal Medicine 10/18/21 documented as of this encounter
--- OUTSIDE RECORDS SUMMARY | 2024-08-01 11:53 | XMS_ITS | Encounter Summary ---
Author Organization [facility] Address [address] [place] [address] Care Team Providers Care Kiss Mixer Name Role Phone Lisa Cruz MD Primary Care Provider Krishan Mendoza Primary Care Provider [phone] Encounter Details Date Type Department Care Team Description 01/03/2018 Personal Computer Network Analyst Report Medical Records [address] [place] [address] Cirilo Higginbotham MD Social History Tobacco Use Types Packs/Day [...] on filedocumented in this encounter Care Teams Kiss Mixer Relationship Specialty Start Date End Date Lisa Cruz MD PCP - General Internal Medicine 01/12/11 10/17/21 Krishan Zuniga [address] [place] [address] [id number] PCP - General Internal Medicine 10/18/21 documented as of this encounter
--- OUTSIDE RECORDS SUMMARY | 2024-08-01 11:53 | XMS_ITS | Encounter Summary ---
Author Organization [facility] Address [address] [place] [address] Care Team Providers Care Corporate Director Talent Assessment Name Role Phone Lisa Cruz MD Primary Care Provider Krishan Mendoza Primary Care Provider [phone] Encounter Details Date Type Department Care Team Description 10/11/2021 Dynamic Balancer Set Up Worker Report Medical Records [address] [place] [address] Toya Alicia Social History Tobacco Use Types Packs/Day Years [...] suspected to have Coronavirus/COVID-19? No / Unsure 09/13/2021 3:05 PM EDT documented as of this encounter Plan of Treatment Not on file documented as of this encounter Visit Diagnoses Not on filedocumented in this encounter Care Teams Corporate Director Talent Assessment Relationship Specialty Start Date End Date Lisa Cruz MD PCP - General Internal Medicine 01/12/11 10/17/21 Krishan Zuniga [address] [place], [place] [phone] PCP - General Internal Medicine 10/18/21 documented as of this encounter
--- OUTSIDE RECORDS SUMMARY | 2024-08-01 11:53 | XMS_ITS | Encounter Summary ---
Author Organization [facility] Address [address] [place] [address] Care Team Providers Care Safety Investigator Name Role Phone Lisa Cruz MD Primary Care Provider Krishan Mendoza Primary Care Provider [phone] Encounter Details Date Type Department Care Team Description 05/07/2019 Facilities Painter Report Medical Records [address] [place] [address] Mireya Cochran NP Social History Tobacco Use Types Packs/Day Years [...] on filedocumented in this encounter Care Teams Safety Investigator Relationship Specialty Start Date End Date Lisa Cruz MD PCP - General Internal Medicine 01/12/11 10/17/21 Krishan Zuniga [address] [place], [place] [phone] PCP - General Internal Medicine 10/18/21 documented as of this encounter
--- OUTSIDE RECORDS SUMMARY | 2024-08-01 11:53 | XMS_ITS | Encounter Summary ---
Author Organization [facility] Address [address] [place] [address] Care Team Providers Care Slasher Hand Name Role Phone LoretajosKrishan cobb Alecia Primary Care Provider [phone] Reason for Visit * Reason Onset Date Comments APPOINTMENT 04/13/2023 Medication 04/13/2023 Provider Call Back 04/13/2023 Encounter Details Date Type Department Care Team Description 04/13/2023 Telephone Adult Medicine [address] [address] Meg Mariano PA-C [address] [place] [address] APPOINTMENT; Medication; Provider Call Back Social History Tobacco Use Types Packs/Day Years [...] encounter Miscellaneous Notes * Telephone Encounter - Madelin Mata - 04/13/2023 12:00 PM EST Patient was informed of script sent to pharmacy for naproxen * Telephone Encounter - Meg Mariano PA-C - 04/13/2023 11:33 AM EST Naproxen prescription was sent to pharmacy. Please inform patient * Telephone Encounter - Madelin Mata - 04/13/2023 11:22 AM EST Patient had visit with you today and states that you and patient talked about Naproxen being prescribed. Please advise * Telephone Encounter - Clover Gusman - 04/13/2023 11:15 AM EST Patient is calling and states she had an apt today with Meg Mariano at 9:45am and says that she overheard Meg say that she was going to perscribe the patient Naproxen to reduce inflamation and it is not mentioned on the after visit summary. Please call and advise . documented in this encounter Plan of Treatment Not on file documented as of this encounter Visit Diagnoses Not on filedocumented in this encounter Care Teams Slasher Hand Relationship Specialty Start Date End Date Krishan Zuniga [address] [place] [id number] PCP - General Internal Medicine 10/18/21 documented as of this encounter
--- OUTSIDE RECORDS SUMMARY | 2024-08-01 11:53 | XMS_ITS | Encounter Summary ---
Author Organization [facility] Address [address] [place] [address] Care Team Providers Care System Designer Name Role Phone Lisa Cruz MD Primary Care Provider Krishan Mendoza Primary Care Provider [phone] Encounter Details Date Type Department Care Team Description 11/07/2017 Hospital Medical Records [address] [place] [address] Laura Krause Social History Tobacco Use Types Packs/Day Years [...] on filedocumented in this encounter Care Teams System Designer Relationship Specialty Start Date End Date Lisa Cruz MD PCP - General Internal Medicine 01/12/11 10/17/21 Krishan Zuniga [address] [place] [address] PCP - General Internal Medicine 10/18/21 documented as of this encounter
--- OUTSIDE RECORDS SUMMARY | 2024-08-01 11:53 | XMS_ITS | Encounter Summary ---
Author Organization [facility] Address [address] [place] [address] Care Team Providers Care Magazine Filler Name Role Phone Lisa Cruz MD Primary Care Provider Krishan Mendoza Primary Care Provider [phone] Encounter Details Date Type Department Care Team Description 10/23/2018 Telephone Adult Medicine [address] [address] Loli Maldonado PA [address] [place] [address] [phone] Social History Tobacco Use Types Packs/Day Years [...] encounter Miscellaneous Notes * Telephone Encounter - Adriana Izaguirre M.A. - 10/24/2018 12:32 PM EDT Spoke with patient re: recent labwork. She states that she was fasting for this labwork. * Telephone Encounter - Nancie Carroll - 10/23/2018 4:24 PM EDT Patient is returing call * Telephone Encounter - Adriana Izaguirre M.A. - 10/23/2018 3:37 PM EDT Message left for patient to return my call. Ext [phone] documented in this encounter Plan of Treatment Not on file documented as of this encounter Visit Diagnoses Not on filedocumented in this encounter Care Teams Magazine Filler Relationship Specialty Start Date End Date Lisa Cruz MD PCP - General Internal Medicine 01/12/11 10/17/21 Krishan Zuniga [address] [place] [phone] PCP - General Internal Medicine 10/18/21 documented as of this encounter
--- OUTSIDE RECORDS SUMMARY | 2024-08-01 11:53 | XMS_ITS | Encounter Summary ---
Author Organization [facility] Address [address] [place] [address] Care Team Providers Care Chain Tender Name Role Phone Lisa Cruz MD Primary Care Provider Krishan Mendoza Primary Care Provider [phone] Reason for Visit * Reason Comments E-prescribe Rx Request Encounter Details Date Type Department Care Team Description 04/13/2018 Refill Adult Medicine [address] [address] Lisa Cruz MD E-prescribe Rx Request Social [...] encounter Miscellaneous Notes * Telephone Encounter - Alysia Song - 04/13/2018 9:16 AM EST Patient would like script to be: E-PRESCRIBED/FAXED TO PHARMACY WHEN WAS THE PATIENT'S LAST APPOINTMENT IN ADULT MEDICINE? 02-22-2018 WHEN WAS THE LAST TIME THE PATIENT SAW THEIR PCP? Same as above Does patient have an upcoming appointment? No-unable to reach left [facility] to call for appointment due to refill request. Appt due early August (THE MEDICATION REQUESTED IS ON THE MED LIST ABOVE) All of the medications requested were on the CURRENT MEDS list Did you check the Pharmacy information above?: YES Patient wants: 90 -day supply Is this a mail order prescription request ? NO If the refill is from a FAXED refill request what is the RX # listed on the fax? N/A Patients current insurance carrier is: Payor: [employer] FFS / Plan: [employer] ALLIANCE / Product Type: MEDICAID RISK documented in this encounter Plan of Treatment Not on file documented as of this encounter Visit Diagnoses Not on filedocumented in this encounter Care Teams Chain Tender Relationship Specialty Start Date End Date Lisa Cruz MD PCP - General Internal Medicine 01/12/11 10/17/21 Krishan Zuniga [address] [place] [address] PCP - General Internal Medicine 10/18/21 documented as of this encounter
--- OUTSIDE RECORDS SUMMARY | 2024-08-01 11:53 | XMS_ITS | Encounter Summary ---
Author Organization [facility] Address [address] [place] [address] Care Team Providers Care Search Developer Name Role Phone Lisa Cruz MD Primary Care Provider Krishan Mendoza Primary Care Provider [phone] Encounter Details Date Type Department Care Team Description 05/05/2017 [facility] [address] [place] [address] Abstract, Provider Social History Tobacco Use Types Packs/Day Years [...] on filedocumented in this encounter Care Teams Search Developer Relationship Specialty Start Date End Date iLsa Cruz MD PCP - General Internal Medicine 01/12/11 10/17/21 Krishan Zuniga [address] [place] [address] PCP - General Internal Medicine 10/18/21 documented as of this encounter
--- OUTSIDE RECORDS SUMMARY | 2024-08-01 11:53 | XMS_ITS | Encounter Summary ---
Author Organization [facility] Address [address] [place] [address] Care Team Providers Care Inspecting And Testing Lead Hand Name Role Phone Krishan Zuniga Primary Care Provider [phone] Encounter Details Date Type Department Care Team Description 08/21/2023 Orders Only Medical Records [address] [place] [address] Scott Raphael MD [address] [place] [address] Social History Tobacco Use Types Packs/Day Years [...] Procedure Name Priority Date/Time Associated Diagnosis Comments OUTSIDE COLONOSCOPY Routine 08/16/2023 documented in this encounter Results * OUTSIDE COLONOSCOPY (08/16/2023) Scott Raphael MD RADIOLOGY documented in this encounter Visit Diagnoses Not on filedocumented in this encounter Care Teams Inspecting And Testing Lead Hand Relationship Specialty Start Date End Date Krishan Zuniga [address] [place] [address] PCP - General Internal Medicine 10/18/21 documented as of this encounter
--- OUTSIDE RECORDS SUMMARY | 2024-08-01 11:53 | XMS_ITS | Encounter Summary ---
Author Organization [facility] Address [address] [place] [address] Care Team Providers Care Farm Operations Technical Director Name Role Phone Lisa Cruz MD Primary Care Provider Krishan Mendoza Primary Care Provider [phone] Reason for Visit * Reason Onset Date Comments refill request 10/23/2017 Encounter Details Date Type Department Care Team Description 10/23/2017 Refill Adult Medicine [address] [address] Lisa Cruz MD refill request Social History [...] encounter Miscellaneous Notes * Telephone Encounter - Madison Kavin - 10/23/2017 5:16 PM EDT Patient would like script to be: E-PRESCRIBED/FAXED TO PHARMACY WHEN WAS THE PATIENT'S LAST APPOINTMENT IN ADULT MEDICINE? 06/27/17 WHEN WAS THE LAST TIME THE PATIENT SAW THEIR PCP? 05/23/17 Does patient have an upcoming appointment? Patient was sent a to call and set up an appointment as they are due. (THE MEDICATION REQUESTED IS ON THE MED [...] N/A Patients current insurance carrier is: Payor: [employer] FFS / Plan: [employer] ALLIANCE / Product Type: MEDICAID RISK documented in this encounter Plan of Treatment Not on file documented as of this encounter Visit Diagnoses Not on filedocumented in this encounter Care Teams Farm Operations Technical Director Relationship Specialty Start Date End Date Lisa Cruz MD PCP - General Internal Medicine 01/12/11 10/17/21 Krishan Zuniga [address] [place] [id number] PCP - General Internal Medicine 10/18/21 documented as of this encounter
--- OUTSIDE RECORDS SUMMARY | 2024-08-01 11:53 | XMS_ITS | Encounter Summary ---
Author Organization [facility] Address [address] [place] [address] Care Team Providers Care Peoplesoft Consultant Name Role Phone Lisa Cruz MD Primary Care Provider Krishan Mendoza Primary Care Provider [phone] Reason for Visit * Reason Comments E-prescribe Rx Request Encounter Details Date Type Department Care Team Description 07/12/2018 Refill Adult Medicine [address] [address] Lisa Cruz MD E-prescribe Rx Request Social [...] * Telephone Encounter - Jennifer Holt - 07/12/2018 1:11 PM EDT Patient would like script to be: E-PRESCRIBED/FAXED TO PHARMACY WHEN WAS THE PATIENT'S LAST APPOINTMENT IN ADULT MEDICINE? 07/10/18 WHEN WAS THE LAST TIME THE PATIENT SAW THEIR PCP? Same as above Does patient have an upcoming appointment? (THE [...] N/A Patients current insurance carrier is: Payor: [employer] FFS / Plan: [employer] ALLIANCE / Product Type: MEDICAID RISK documented in this encounter Plan of Treatment Not on file documented as of this encounter Visit Diagnoses Diagnosis Cervicalgia documented in this encounter Care Teams Peoplesoft Consultant Relationship Specialty Start Date End Date Lisa Cruz MD PCP - General Internal Medicine 01/12/11 10/17/21 Krishan Zuniga [address] [place] [address] PCP - General Internal Medicine 10/18/21 documented as of this encounter
--- OUTSIDE RECORDS SUMMARY | 2024-08-01 11:53 | XMS_ITS | Encounter Summary ---
Author Organization [facility] Address [address] [place] [address] Care Team Providers Care Muffler Mechanic Name Role Phone Krishan Zuniga MD Primary Care Provider Reason for Visit * Reason Onset Date Comments medication 02/08/2024 Encounter Details Date Type Department Care Team (Late st Contact Info) Description 02/08/2024 Nurse Triage Adult Medicine [facility] [address] [place] [address] Melina Keith MD [address] [place], [place] medication Social History Tobacco Use Types Packs/Day Years Used Date Smoking Tobacco: Never Smokeless Tobacco: Never Alcohol Use Standard Drinks/Week Comments Yes 0 (1 standard drink = 0.6 oz pur e alcohol) Comments Unknown Sex and Gender Information Value Date Recorded Sex Assigned at Not on file Legal Sex Female 12:18 AM EST Gender Identity Not on file Sexual Orientation Not on file documented as of this encounter Progress Notes * Jana Glover RN - 02/08/2024 2:40 PM EST Pt has had cough for 3 Days, Pt is covid positive no chest wall pain with deep breath and cough, denies SOB ( has no COPD/ asthma or any respiratory condition ) , able to speak in full sentences and has no audible wheezing, cough is non productive for Sputum, denies fever (100) able to take PO with no difficulty, denies N/V/D, No abd pain, no blood in stools pt is also C/O cough, congestion body aches, headache,ear pain,sinus pain,fatigue , sore throat Advised home care following the Cough/ breathing problems Protocol. RN reinforced telephone consultation and advice. Reviewed with the patient the signs and symptoms to watch for that would require immediate attention. If symptoms change, worsen or increase in intensity, to call back immediately. Appointment not needed . Pt to use home care instructions per CDC and will call if develops new or worsening symptoms Reason for Disposition ??? [1] COVID-19 diagnosed by positive lab test (e.g., PCR, rapid self-test kit) AND [2] mild symptoms (e.g., cough, fever, others) AND [3] no complications or SOB Answer Assessment - Initial Assessment Questions 1. SYMPTOMS: What is your main symptom or concern? (e.g., cough, fever, shortness of breath, muscle aches) Cough 2. ONSET: When did the symptoms start? 3 days ago 3. COUGH: Do you have a cough? If Yes, ask: How bad is the cough? Yes , persistent 4. FEVER: Do you have a fever? If Yes, ask: What is your temperature, how was it measured, and when did it start? 100 po 5. BREATHING DIFFICULTY: Are you having any difficulty breathing? (e.g., normal; shortness of breath, wheezing, unable to speak) No 6. [id number]: Are you getting better, staying the same or getting worse compared to yesterday? If getting worse, ask, In what way? Same 7. OTHER SYMPTOMS: Do you have any other symptoms? (e.g., chills, fatigue, headache, loss of smell or taste, muscle pain, sore throat) no chest wall pain with deep breath and cough, denies SOB ( has no COPD/ asthma or any respiratory condition ) , able to speak in full sentences and has no audible wheezing, cough is non productive for Sputum, denies fever (100) able to take PO with no difficulty, denies N/V/D, No abd pain, no blood in stools pt is also C/O cough, congestion body aches, headache,ear pain,sinus pain,fatigue , sore throat 8. COVID-19 DIAGNOSIS: How do you know that you have COVID? (e.g., positive lab test or self-test, diagnosed by doctor or NETWORK ENGINEER ADMINISTRATOR/PA, symptoms after exposure). Home test 9. COVID-19 EXPOSURE: Was there any known exposure to COVID before the symptoms began? unknown 10. COVID-19 VACCINE: Have you had the COVID-19 vaccine? If Yes, ask: When did you last get it? Unknown 11. HIGH RISK DISEASE: Do you have any chronic medical problems? (e.g., asthma, heart or lung disease, weak immune system, obesity, etc.) Hx c diff and pt is concerned 12. : Is there any chance you are ? When was your last menstrual period? N/a 13. O2 SATURATION MONITOR: Do you use an oxygen saturation monitor (pulse oximeter) at home? If Yes, ask What is your reading (oxygen level) today? What is your usual oxygen saturation reading? (e.g., 95%) Unknown Protocols used: COVID-19 - Diagnosed or [id number] * Antionette Navas - 02/08/2024 2:27 PM EST Patient has tested positive for COVID and is looking for paxlovid to be sent to her current pharmacy. documented in this encounter Plan of Treatment Upcoming Encounters Date Type Department Care Team (Late st Contact Info) Description 08/14/2024 9:30 AM EDT Appointment Radiology Department - [address] [phone] 08/19/2024 9:45 AM EDT Office Visit Pulmonolgy - [place] [address] [facility] [address] [place] [phone] Loraine Sawyer MD [address] [facility] [address] [place] [address] 09/24/2024 9:00 AM EDT Consult [facility] - [place] [address] [facility] [address] [place] [phone] Timothy Webster MD [address] [facility] [address] [place] [phone] 10/15/2024 9:00 AM EDT Office Visit Adult Medicine [address] [phone] Krishan Zuniga MD [address] [place] [address] documented as of this encounter Visit Diagnoses Not on filedocumented in this encounter Care Teams Muffler Mechanic Relationship Specialty Start Date End Date Krishan Zuniga MD [address] [place] [id number] PCP - General Internal Medicine 02/08/24 documented as of this encounter
--- OUTSIDE RECORDS SUMMARY | 2024-08-01 11:53 | XMS_ITS | Encounter Summary ---
Author Organization [facility] Address [address] [place] [address] Care Team Providers Care Power Plant Technician Name Role Phone Lisa Cruz MD Primary Care Provider Krishan Mendoza Primary Care Provider [phone] Reason for Visit * Reason Comments E-prescribe Rx Request Encounter Details Date Type Department Care Team Description 03/26/2019 Refill Medical Records [address] [place] [address] Loli Maldonado PA [address] [place] [address] E-prescribe Rx Request Social History Tobacco Use [...] encounter Miscellaneous Notes * Telephone Encounter - Holly Ford M.A. - 03/27/2019 9:25 AM EST Receipt not confirmed, spoke with [facility] and they never received please review and approve again. Thank you. * Telephone Encounter - MIGUEL A Davison - 03/27/2019 8:57 AM EST It appears this was just refilled 2 days ago. Did pharmacy not receive prescription? * Telephone Encounter - Doris Xiao - 03/26/2019 4:00 PM EST Patient would like script to be: E-PRESCRIBED/FAXED TO PHARMACY WHEN WAS THE PATIENT'S LAST APPOINTMENT IN ADULT MEDICINE? 03/06/19 WHEN WAS THE LAST TIME THE PATIENT SAW THEIR PCP? 01/15/19 Does patient have an upcoming appointment? No-unable to reach left [facility] to call for appointment due to refill request. Appt due 09/05/19 (THE MEDICATION REQUESTED IS ON THE MED [...] N/A Patients current insurance carrier is: Payor: [employer] FFS / Plan: [facility] ALLIANCE / Product Type: MEDICAID RISK documented in this encounter Plan of Treatment Not on file documented as of this encounter Visit Diagnoses Not on filedocumented in this encounter Care Teams Power Plant Technician Relationship Specialty Start Date End Date Lisa Cruz MD PCP - General Internal Medicine 01/12/11 10/17/21 Krishan Zuniga [address] [place] [address] PCP - General Internal Medicine 10/18/21 documented as of this encounter
--- OUTSIDE RECORDS SUMMARY | 2024-08-01 11:53 | XMS_ITS | Encounter Summary ---
Author Organization [facility] Address [address] [place] [address] Care Team Providers Care Blow Down Helper Name Role Phone Lisa Cruz MD Primary Care Provider Krishan Mendoza Primary Care Provider [phone] Reason for Visit * Reason Comments E-prescribe Rx Request Encounter Details Date Type Department Care Team Description 06/04/2018 Refill Adult Medicine [address] [address] Lisa Cruz MD E-prescribe Rx Request Social [...] Miscellaneous Notes * Telephone Encounter - Adriana Pacheco M.A. - 06/05/2018 2:34 PM EDT Lab Results Component Value Date NA 141 05/25/2018 K 4.7 05/25/2018 CO2 26 05/25/2018 CL 107 05/25/2018 BUN 12 05/25/2018 CREAT 0.49 05/25/2018 GLU 95 05/25/2018 CA 9.6 05/25/2018 GFR > 60 05/25/2018 Last ov with pcp 05/25/18 * Telephone Encounter - Abena Jackson - 06/04/2018 3:46 PM EDT Patient would like script to be: E-PRESCRIBED/FAXED TO PHARMACY WHEN WAS THE PATIENT'S LAST APPOINTMENT IN ADULT MEDICINE? 05/25/18 WHEN WAS THE LAST TIME THE PATIENT SAW THEIR PCP? Same as above Does patient have an upcoming appointment? Yes 06/08/18 (THE MEDICATION REQUESTED IS ON THE MED [...] N/A Patients current insurance carrier is: Payor: [employer] FFS / Plan: [employer] [facility] [employer] / Product Type: MEDICAID RISK documented in this encounter Plan of Treatment Not on file documented as of this encounter Visit Diagnoses Diagnosis Cervicalgia Asthma with acute exacerbation, unspecified asthma severity, unspecified whether persistent documented in this encounter Care Teams Blow Down Helper Relationship Specialty Start Date End Date Lisa Cruz MD PCP - General Internal Medicine 01/12/11 10/17/21 Krishan Zuniga [address] [place] [id number] PCP - General Internal Medicine 10/18/21 documented as of this encounter
--- OUTSIDE RECORDS SUMMARY | 2024-08-01 11:53 | XMS_ITS | Encounter Summary ---
Author Organization [facility] Address [address] [place] [address] Care Team Providers Care Still Operator Whiskey Name Role Phone Lisa Cruz MD Primary Care Provider Krishan Mendoza Primary Care Provider [phone] Reason for Visit * Reason Onset Date Comments Provider Call Back 03/06/2018 Encounter Details Date Type Department Care Team Description 03/06/2018 Telephone Adult Medicine [address] [address] Lisa Cruz MD Provider Call Back Social History Tobacco Use [...] encounter Miscellaneous Notes * Telephone Encounter - Fabby Cole M.A. - 03/07/2018 2:27 PM EST We only do prior authorizations for medications Please send to appropriate pool KINA Patel Prior Authorization EXT: [id number] Please reply back to [id number] * Telephone Encounter - Doris Xiao - 03/06/2018 2:59 PM EST Caller requesting call back from provider: Is the caller the patient? YES If caller is not the patient, what is the callers name? N/A Callers relationship to patient? N/A If person calling is not the patient themselves, is there a verbal release in FYI or permanent comments for this person: YES Reason for call back: Patient is calling requesting that Dr. Cruz submit prior authorization [place] [facility] [place] internal chiro in [place]. Caller offered to speak with the nurse for assistance: YES Response: Patient offered to speak with nurse for assistance and patient agreed. Message forwarded to nurse. documented in this encounter Plan of Treatment Not on file documented as of this encounter Visit Diagnoses Not on filedocumented in this encounter Care Teams Still Operator Whiskey Relationship Specialty Start Date End Date Lisa Cruz MD PCP - General Internal Medicine 01/12/11 10/17/21 Krishan Zuniga [address] [place] [address] PCP - General Internal Medicine 10/18/21 documented as of this encounter
--- OUTSIDE RECORDS SUMMARY | 2024-08-01 11:53 | XMS_ITS | Encounter Summary ---
Author Organization [facility] Address [address] [place] [address] Care Team Providers Care Control Panel Operator Crude Unit Name Role Phone Lisa Cruz MD Primary Care Provider Krishan Mendoza Primary Care Provider [phone] Encounter Details Date Type Department Care Team Description 02/14/2020 Orders Only Medical Records [address] [place] [address] Ivanna Cardenas PA-C [address] [place] [address] Social History Tobacco Use Types Packs/Day Years [...] Name Priority Date/Time Associated Diagnosis Comments OUTSIDE ECHO Routine 02/10/2020 documented in this encounter Results * OUTSIDE ECHO (02/10/2020) Ivanna Cardenas PA-C CARDIOLOGY documented in this encounter Visit Diagnoses Not on filedocumented in this encounter Care Teams Control Panel Operator Crude Unit Relationship Specialty Start Date End Date Lisa Cruz MD PCP - General Internal Medicine 01/12/11 10/17/21 Krishan Zuniga [address] [place] [address] PCP - General Internal Medicine 10/18/21 documented as of this encounter
--- OUTSIDE RECORDS SUMMARY | 2024-08-01 11:53 | XMS_ITS | Encounter Summary ---
Author Organization [facility] Address [address] [place] [address] Care Team Providers Care Medical Coding Manager Name Role Phone Lisa Cruz MD Primary Care Provider Krishan Mendoza Primary Care Provider [phone] Encounter Details Date Type Department Care Team Description 02/22/2021 Physician Assistant Primary Care Report Medical Records [address] [place] [address] [facility] Social History Tobacco Use Types Packs/Day Years [...] filedocumented in this encounter Care Teams Medical Coding Manager Relationship Specialty Start Date End Date Lisa Cruz MD PCP - General Internal Medicine 01/12/11 10/17/21 Krishan Zuniga [address] [place], [place] [phone] PCP - General Internal Medicine 10/18/21 documented as of this encounter
--- OUTSIDE RECORDS SUMMARY | 2024-08-01 11:53 | XMS_ITS | Encounter Summary ---
Author Organization [facility] Address [address] [place] [address] Care Team Providers Care Senior Scheduler Name Role Phone Lisa Cruz MD Primary Care Provider Krishan Mendoza Primary Care Provider [phone] Reason for Visit * Reason Comments E-prescribe Rx Request Encounter Details Date Type Department Care Team Description 10/22/2017 Refill Adult Medicine [address] [address] Lisa Cruz MD E-prescribe Rx Request Social [...] encounter Miscellaneous Notes * Telephone Encounter - Kari Bruno - 10/23/2017 1:16 PM EDT Patient would like script to be: E-PRESCRIBED/FAXED TO PHARMACY WHEN WAS THE PATIENT'S LAST APPOINTMENT IN ADULT MEDICINE? 06/27/17 WHEN WAS THE LAST TIME THE PATIENT SAW THEIR PCP? 05/23/17 Does patient have an upcoming appointment? Letter mailed to patient to call office and book appt. (THE MEDICATION REQUESTED IS ON THE MED [...] N/A Patients current insurance carrier is: Payor: [employer] FFS / Plan: [employer] / Product Type: MEDICAID RISK documented in this encounter Plan of Treatment Not on file documented as of this encounter Visit Diagnoses Not on filedocumented in this encounter Care Teams Senior Scheduler Relationship Specialty Start Date End Date Lisa Cruz MD PCP - General Internal Medicine 01/12/11 10/17/21 Krishan Zuniga [address] [place] [address] PCP - General Internal Medicine 10/18/21 documented as of this encounter
--- OUTSIDE RECORDS SUMMARY | 2024-08-01 11:53 | XMS_ITS | Encounter Summary ---
Author Organization [facility] Address [address] [place] [address] Care Team Providers Care Records Associate Name Role Phone Lisa Cruz MD Primary Care Provider Krishan Mendoza Primary Care Provider [phone] Encounter Details Date Type Department Care Team Description 05/07/2019 Mill Helper Report Medical Records [address] [place] [address] Gastroenterology, [facility] [place] Social History Tobacco Use Types Packs/Day Years [...] on filedocumented in this encounter Care Teams Records Associate Relationship Specialty Start Date End Date Lisa Cruz MD PCP - General Internal Medicine 01/12/11 10/17/21 Krishan Zuniga [address] [place] [id number] PCP - General Internal Medicine 10/18/21 documented as of this encounter
--- OUTSIDE RECORDS SUMMARY | 2024-08-01 11:53 | XMS_ITS | Encounter Summary ---
Author Organization [facility] Address [address] [place] [address] Care Team Providers Care Ribbon Blocker Name Role Phone Lisa Cruz MD Primary Care Provider Krishan Mendoza Primary Care Provider [phone] Encounter Details Date Type Department Care Team Description 12/05/2018 Orders Only Medical Records [address] [place] [address] Lisa Cruz MD Social History Tobacco Use [...] Name Priority Date/Time Associated Diagnosis Comments OUTSIDE STRESS TEST Routine 12/03/2018 documented in this encounter Results * OUTSIDE STRESS TEST (12/03/2018) Lisa Cruz MD CARDIOLOGY documented in this encounter Visit Diagnoses Not on filedocumented in this encounter Care Teams Ribbon Blocker Relationship Specialty Start Date End Date Lisa Cruz MD PCP - General Internal Medicine 01/12/11 10/17/21 Krishan Zuniga [address] [place] [address] PCP - General Internal Medicine 10/18/21 documented as of this encounter
--- OUTSIDE RECORDS SUMMARY | 2024-08-01 11:53 | XMS_ITS | Encounter Summary ---
Author Organization [facility] Address [address] [place] [address] Care Team Providers Care Maternal Fetal Physician Name Role Phone Lisa Cruz MD Primary Care Provider Krishan Mendoza Primary Care Provider [phone] Encounter Details Date Type Department Care Team Description 03/25/2021 Business Doc Medical Records [address] [place] [address] Abstract, Provider Social History Tobacco Use Types [...] have Coronavirus / COVID-19? No / Unsure 03/22/2021 10:20 AM EST documented as of this encounter Plan of Treatment Not on file documented as of this encounter Visit Diagnoses Not on filedocumented in this encounter Care Teams Maternal Fetal Physician Relationship Specialty Start Date End Date Lisa Cruz MD PCP - General Internal Medicine 01/12/11 10/17/21 Krishan Zuniga [address] [place] [address] PCP - General Internal Medicine 10/18/21 documented as of this encounter
--- OUTSIDE RECORDS SUMMARY | 2024-08-01 11:54 | XMS_ITS | Encounter Summary ---
Author Organization [facility] Address [address] [place] [address] Care Team Providers Care Spareribs Trimmer Name Role Phone Lisa Cruz MD Primary Care Provider Krishan Mendoza Primary Care Provider [phone] Encounter Details Date Type Department Care Team Description 03/26/2015 SPOOL FIXER/MassPat Report Medical Records [address] [place] [address] Abstract, Provider Social History Tobacco Use Types [...] on filedocumented in this encounter Care Teams Spareribs Trimmer Relationship Specialty Start Date End Date Lisa Cruz MD PCP - General Internal Medicine 01/12/11 10/17/21 Krishan Zuniga [address] [place], [place] [phone] PCP - General Internal Medicine 10/18/21 documented as of this encounter
--- OUTSIDE RECORDS SUMMARY | 2024-08-01 11:54 | XMS_ITS | Encounter Summary ---
Author Organization [facility] Address [address] [place] [address] Care Team Providers Care Corporate Secretary Name Role Phone Lisa Cruz MD Primary Care Provider Krishan Mendoza Primary Care Provider [phone] Encounter Details Date Type Department Care Team Description 01/08/2019 Orders Only Medical Records [address] [place] [address] Loli Maldonado PA [address] [place] [address] Social History Tobacco Use Types Packs/Day Years [...] Priority Date/Time Associated Diagnosis Comments OUTSIDE STRESS ECHO Routine 01/03/2019 documented in this encounter Results * OUTSIDE STRESS ECHO (01/03/2019) Loli GRADY CARDIOLOGY documented in this encounter Visit Diagnoses Not on filedocumented in this encounter Care Teams Corporate Secretary Relationship Specialty Start Date End Date Lisa Cruz MD PCP - General Internal Medicine 01/12/11 10/17/21 Krishan Zuniga [address] [place] [address] PCP - General Internal Medicine 10/18/21 documented as of this encounter
--- OUTSIDE RECORDS SUMMARY | 2024-08-01 11:54 | XMS_ITS | Referral Summary ---
Author Organization [facility] Address [address] [place] [address] Care Team Providers Care Battery Assembler Name Role Phone Lisa Cruz MD Primary Care Provider [phone] Allergies Active Allergy Reactions Criticality Noted Date Comments Moxifloxacin Hives 10/10/2009 [place] as if her throat was swelling along [...] Treatment Not on file Insurance [employer] Care Teams Battery Assembler Relationship Specialty Start Date End Date Lisa Cruz MD PCP - General Internal Medicine 02/22/21
--- OUTSIDE RECORDS SUMMARY | 2024-08-01 11:54 | XMS_ITS | Clinical Summary ---
Author Organization [address] Address [address] [place] [phone] Phone Care Team Providers Care Lead Programmer Analyst Name Role Phone Krishan Zuniga MD Primary Care Provider [phone] Allergies Active Allergy Reactions Criticality Noted Date Comments Moxifloxacin Hives 10/10/2009 [place] as if her throat was swelling along [...] in adult, unspecified whether serious comorbidity present ([facility] V24, [facility] V28) Take 1 tablet (50 mg total) [...] in adult, unspecified whether serious comorbidity present ([facility] V24, [facility] V28) Inject 0.5 mL (2.5 mg total) under the skin every 7 (seven) days for 28 days. 2 mL 07/26/19 25 025 Active busPIRone (BUSPAR) 5 mg tablet Take by mouth. Take 1 Tablet by mouth 3 times daily as needed (Anxiety 025 Discontinued(No n-compliance) albuterol 2.5 mg /3 mL (0.083 %) [...] capsule 07/25/19 25 025 Discontinued(Al ternate therapy) tirzepatide, weight loss, (Zepbound) 2.5 mg/0.5 mL injectionIndic ations:Class 3 severe obesity due to excess calories with body mass index (BMI) of 40.0 to 44.9 in adult, unspecified whether serious comorbidity present ([facility] V24, [facility] V28) Inject 0.5 mL (2.5 mg total) under the skin every 7 (seven) days for 28 days. 2 mL 07/25/19 25 025 Discontinued(Re order) Active Problems Problem Noted Date Diagnosed Date [...] Encounters Date Type Department Care Team Description 07/30/2024 2:30 PM EDT Office Visit Adult Medicine [facility] [address] [place] [address] Meg Mariano PA Pain of left breast (Primary Dx); Encounter for screening mammogram for malignant neoplasm of breast 07/30/2024 Telephone Bariatric Surgery [address] [phone] Yoav Parikh MD 07/25/2024 3:45 PM EDT Office Visit Bariatric Surgery [address] [phone] Yoav Parikh MD Class 3 severe obesity due to excess calories with body mass index (BMI) of 40.0 to 44.9 in adult, unspecified whether serious comorbidity present (CMS/HCC V24, CMS/HCC V28) 07/24/2024 Telephone Bariatric Surgery [address] [phone] Yoav Parikh MD 07/16/2024 10:45 AM EDT Office Visit [address] [phone] Meg Mariano PA Anxiety and depression (Primary Dx); Rash 07/02/2024 Telephone Adult Medicine [address] [phone] Krishan Zuniga MD Referral 06/26/2024 10:30 AM EDT Office Visit Bariatric Surgery [address] [phone] Yoav Parikh MD Class 3 severe obesity due to excess calories with body mass index (BMI) of 40.0 to 44.9 in adult, unspecified whether serious comorbidity present ([facility] V24, [facility] V28) (Primary Dx) 06/26/2024 Telephone Bariatric Surgery - [address] [place] [address] Yoav Parikh MD Med Refill (topiramate) 06/24/2024 11:00 AM EDT Office Visit Adult [address] [phone] Meg Mariano PA Anxiety and depression (Primary Dx); Elevated blood pressure reading; Moderate persistent asthma, unspecified whether complicated; Encounter for screening mammogram for malignant neoplasm of breast; Class 3 severe obesity due to excess calories with serious comorbidity and body mass index (BMI) of 40.0 to 44.9 in adult ([facility] V24, [facility] V28); Migraine with aura and without status migrainosus, not intractable 06/24/2024 Telephone Adult [address] [phone] Krishan Zuniga MD Forms/questionnaires from Last 3 Months Immunizations Name Administration [...] pr pt OTHER SURGICAL HISTORY 04/01/2019 PROCEDURE: ID DILATION & CURETTAGE DX&/THER NONOBSTETRIC Medical History [...] Alive 1998; healthy Father Alive AMI (40s); [facility]'s entire family estranged Maternal Grandfather Killed in [...] for your loved ones. For example, childcare center administrator or elderly care for an older [...] Sign Reading Time Taken Comments Blood Pressure 110/90 07/30/2024 2:03 PM EDT Pulse 78 07/30/2024 2:03 PM EDT Temperature 36.9 ??C (98.5 ??F) 07/30/2024 2:03 PM ED T Respiratory Rate 16 07/30/2024 2:03 PM EDT Oxygen Saturation 100% 04/19/2024 9:27 AM EST Inhaled Oxygen Concentration - - Weight 112 kg (247 lb) 07/30/2024 2:03 PM EDT Height 160 cm (5' 3 ) 07/30/2024 2:03 PM EDT Body Mass Index 43.75 07/30/2024 2:03 PM EDT Plan of Treatment Upcoming Encounters Date Type Department Care Team (Late st Contact Info) Description 08/14/2024 9:30 AM EDT Appointment Radiology Department - [address] [phone] 08/19/2024 9:45 AM EDT [facility] [address] [place] [phone] Loraine Sawyer MD [address] [facility] [address] [place] [address] 09/24/2024 9:00 AM EDT Consult [facility] [place] [address] [facility] [address] [place] [phone] Timothy Webster MD [address] [facility] [address] [place] [phone] 10/15/2024 9:00 AM EDT Office Visit Adult Medicine [place] - [address] [phone] Krishan Zuniga MD [address] [place] [address] Health Maintenance Due Date Last Done Comments [...] Procedure Name Priority Date/Time Associated Diagnosis Comments DEPRESSION SCREENING Routine 11/16/2023 COLONOSCOPY Routine 08/16/2023 HEPATITIS C SCREENING Routine 04/14/2023 LIPID PANEL Routine 04/14/2023 PAP SMEAR Routine 05/01/2019 DX MAMMO INCL CAD BI Routine 07/07/2017 10:32 AM EDT Dermatitis, unspecified from Last 3 Months or Most Recently Relevant to Health Maintenance Results * Depression Screening (11/16/2023) Depression Screening abstracted [facility] Provider HEALTH MAINTENANCE Final Result * Colonoscopy (08/16/2023) Pathologist [facility] Colonoscopy no interpretation , abstracted Anatomical Region Laterality Modality Other Result [facility] HEALTH MAINTENANCE Final Result * Hepatitis C Screening (04/14/2023) Pathologist [facility] Hepatitis C Screening abstracted [facility] Provider HEALTH MAINTENANCE Final Result * (ABNORMAL) Lipid panel (04/14/2023) [facility] LDL/HDL Ratio 3 0 - 4 Triglycerides 90 0 - 150 mg/dL Cholesterol 262(A) 0 - 200 mg/dL HDL 92 >=40 mg/dL LDL Cholesterol 152(A) 0 - 100 mg/dL Blood Venous blood specimen / Unknown Result [facility] Provider LAB BLOOD ORDERABLES Gale l Result * Pap Smear (05/01/2019) Pathologist [facility] Pap smear no interpretation , abstracted [facility] Provider HEALTH MAINTENANCE Final Result * DX [...] copy. Please see combined report, same date. us Karl GRADY IMG BI PROCEDURES Final Result from Last 3 Months or Most Recently Relevant to Health Maintenance Insurance [facility] [employer] Care Teams Lead Programmer Analyst Relationship Specialty Start Date End Date Krishan Zuniga MD [address] [place] [phone] PCP - General Internal Medicine 02/08/24
--- OUTSIDE RECORDS SUMMARY | 2024-08-01 11:54 | XMS_ITS | Encounter Summary ---
Author Organization [facility] Address [address] [place] [address] Care Team Providers Care Planer Stone Name Role Phone Amrita Junior MD Primary Care Provider Unavailable Lisa Cruz MD Primary Care Provider Krishan Mendoza Primary Care Provider [phone] Encounter Details Date Type Department Care Team Description 09/21/2010 Controlled Substance Contract with Plan Medical Records [address] [place] [address] Abstract, Provider Social History Tobacco Use Types [...] on filedocumented in this encounter Care Teams Planer Stone Relationship Specialty Start Date End Date Amrita Junior MD PCP - General 02/17/0512/19 Lisa Cruz MD PCP - General Internal Medicine 01/12/11 10/17/21 Krishan Zuniga [address] [place], [place] [phone] PCP - General Internal Medicine 10/18/21 documented as of this encounter
--- OUTSIDE RECORDS SUMMARY | 2024-08-01 11:54 | XMS_ITS | Encounter Summary ---
Author Organization [facility] Address [address] [place] [address] Care Team Providers Care Practical Ministries Professor Name Role Phone Lisa Cruz MD Primary Care Provider Krishan Mendoza Primary Care Provider [phone] Reason for Visit * Reason Comments E-prescribe Rx Request Encounter Details Date Type Department Care Team Description 12/23/2018 Refill Adult Medicine [address] [address] Caroline Sanchez APRN E-prescribe Rx Request Social [...] Telephone Encounter - Holly Ford M.A. - 12/24/2018 4:19 PM EDT TAB 12-24-18 NOV 12-24-18 Lab Results Component Value Date WBC 8.1 12/14/2018 HGB 13.7 12/14/2018 HCT 43.0 12/14/2018 MCV 91.5 12/14/2018 PLTCT 376 12/14/2018 documented in this encounter Plan of Treatment Not on file documented as of this encounter Visit Diagnoses Not on filedocumented in this encounter Care Teams Practical Ministries Professor Relationship Specialty Start Date End Date Lisa Cruz MD PCP - General Internal Medicine 01/12/11 10/17/21 Krishan Zuniga [address] [place] [address] PCP - General Internal Medicine 10/18/21 documented as of this encounter
--- OUTSIDE RECORDS SUMMARY | 2024-08-01 11:54 | XMS_ITS | Encounter Summary ---
Author Organization [facility] Address [address] [place] [address] Care Team Providers Care Business Development Executive Name Role Phone Krishan Zuniga MD Primary Care Provider [phone] Encounter Details Date Type Department Care Team ([facility] st Contact Info) Description 07/30/2024 Telephone Bariatric Surgery - [place] 175 [facility] [address] [place] [address] Yoav Parikh MD 175 [facility] [address] [place] [address] Social History Tobacco Use Types Packs/Day Years [...] your loved ones. For example, child care coordinator or elderly care for an older adult? [...] as of this encounter Progress Notes * Johnathan Hernandes MA - 07/30/2024 1:35 PM EDT Please complete the note from 07/25/2024 for this patient documented in this encounter Plan of Treatment Upcoming Encounters Date Type Department Care Team (Late st Contact Info) Description 08/14/2024 9:30 AM EDT Appointment Radiology Department [address] [address] 08/19/2024 9:45 AM EDT Office Visit Pulmonolgy - [place] 175 [facility] [address] [place] [phone] Loraine Sawyer MD 175 [facility] [address] [place] [address] 09/24/2024 9:00 AM EDT Consult [facility] [place] 175 [facility] [address] [place] [phone] Timothy Webster MD 175 [facility] [address] [place] [phone] 10/15/2024 9:00 AM EDT Office Visit Adult Medicine [address] [address] Krishan Zuniga MD [address] [place] [address] documented as of this encounter Visit Diagnoses Not on filedocumented in this encounter Additional Health Concerns Assessment Noted Time PHQ-9 Depression Total Score: 18 07/12/ 025 4:23 PM EDT documented as of this encounter Care Teams Business Development Executive Relationship Specialty Start Date End Date Krishan Zuniga MD [address] [place] [address] PCP - General Internal Medicine 02/08/24 documented as of this encounter
--- OUTSIDE RECORDS SUMMARY | 2024-08-01 11:54 | XMS_ITS | Clinical Summary ---
Author Organization [facility] Address [address] [place] [address] Care Team Providers Care Advisory Application Developer Name Role Phone Lisa Cruz MD Primary Care Provider [phone] Allergies Active Allergy Reactions Criticality Noted Date Comments Moxifloxacin Hives 10/10/2009 [place] as if her throat was swelling along [...] series) 11/26/2043 Insurance [employer] Care Teams Advisory Application Developer Relationship Specialty Start Date End Date Lisa Cruz MD PCP - General Internal Medicine 02/22/21
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
--- OUTSIDE RECORDS SUMMARY | 2024-08-01 11:54 | XMS_ITS | Encounter Summary ---
Author Organization [facility] Address [address] [place] [address] Care Team Providers Care Aquaculturist Name Role Phone Lisa Cruz MD Primary Care Provider Krishan Mendoza Primary Care Provider [phone] Reason for Visit * Reason Onset Date Comments medication problems 01/05/2017 gabapentin ( NEURONTIN) 100 MG capsule Encounter Details Date Type Department Care Team Description 01/05/2017 Telephone Adult Medicine [address] [address] Josette Reynoso PA-C medication problems (gabapentin (NEURONTIN) 100 MG capsule) Social History Tobacco Use Types Packs/Day Years [...] encounter Miscellaneous Notes * Telephone Encounter - Juliana Majano C.M.A. - 01/05/2017 2:19 PM EDT Patient notified * Telephone Encounter - Josette Reynoso PA-C - 01/05/2017 12:47 PM EDT Patient may take 2 at night * Telephone Encounter - Doris Xiao - 01/05/2017 10:25 AM EDT Who is calling? The patient Name of the medication gabapentin (NEURONTIN) 100 MG capsule What is the specific problem or interaction? Patient was told by Josette to call back if this dosage wasn't helping with her nerve pain so she could increase the dosage. If the patient is having a problem with taking the med - how long has the problem been going on? N/A documented in this encounter Plan of Treatment Not on file documented as of this encounter Visit Diagnoses Not on filedocumented in this encounter Care Teams Aquaculturist Relationship Specialty Start Date End Date Lisa Cruz MD PCP - General Internal Medicine 01/12/11 10/17/21 Krishan Zuniga [address] [place] [address] PCP - General Internal Medicine 10/18/21 documented as of this encounter
--- OUTSIDE RECORDS SUMMARY | 2024-08-01 11:54 | XMS_ITS | Encounter Summary ---
Author Organization [facility] Address [address] [place] [address] Care Team Providers Care Shoe Repair Supervisor Name Role Phone Krishan Zuniga MD Primary Care Provider [phone] Reason for Referral * Imaging (Routine) - Authorized Specialty Diagnoses / Procedures Referred By Akash caballero Referred To Contact Radiology Diagnoses Encounter for screening mammogram for malignant neoplasm of breast Procedures MG Mammo Digital Screening w Chau bilat Meg Mariano PA [address] [place] [address] Phone: tel: fax: [address] Phone: tel: Referral ID Status Reason Start Date Expiration Date V isits Requested Visits Authorized [id number] Authorized 07/30/2024 07/30/2025 1 1 * Consultation (Routine) - Authorized Specialty Diagnoses / Procedures Referred By Akash caballero Referred To Contact Breast Surgery Diagnoses Pain of left breast Meg Mariano PA [address] [place] [address] Phone: tel: fax: Breast [address] [address] Phone: tel: fax: Referral ID Status Reason Start Date Expiration Date Visits Requested Visits Authorized [id number] Authorized Specialty Services Required 07/30/2024 07/30/2025 1 1 * Imaging (Routine) - Authorized Specialty Diagnoses / Procedures Referred By Akahs caballero Referred To Contact Radiology Diagnoses Pain of left breast Procedures MG Mammo Digital Diagnostic w Chau Left Meg Mariano PA [address] [place] [address] Phone: tel: fax: [address] Phone: tel: Referral ID Status Reason Start Date Expiration Date V isits Requested Visits Authorized [id number] Authorized 07/30/2024 07/30/2025 1 1 Reason for Visit * Reason Comments Mass Under left arm x 2 d ays Encounter Details Date Type Department Care Team (Late st Contact Info) Description 07/30/2024 2:30 PM EDT Office Visit Adult Medicine [address] [phone] Meg Mariano PA [address] [place] [address] Pain of left breast (Primary Dx); Encounter for screening mammogram for malignant neoplasm of breast Social History Tobacco Use Types Packs/Day Years [...] your loved ones. For example, child care assistant or elderly care for an older adult? [...] on file documented as of this encounter Last Filed Vital Signs Vital Sign Reading Time Taken Comments Blood Pressure 110/90 07/30/2024 2:03 PM EDT Pulse 78 07/30/2024 2:03 PM EDT Temperature 36.9 ??C (98.5 ??F) 07/30/2024 2:03 PM ED T Respiratory Rate 16 07/30/2024 2:03 PM EDT Oxygen Saturation - - Inhaled Oxygen Concentration - - Weight 112 kg (247 lb) 07/30/2024 2:03 PM EDT Height 160 cm (5' 3 ) 07/30/2024 2:03 PM EDT Body Mass Index 43.75 07/30/2024 2:03 PM EDT documented in this encounter Progress Notes * MIGUEL A Braxton - 07/30/2024 2:30 PM EDT CHIEF COMPLAINT: Mass (Under left arm x 2 days ) IDENTIFIER: Elli Webber is a 53 y.o. old female. Past medical history: mild asthma, migraine headaches, hyperlipidemia, low backache with bilateral sciatica, anxiety/depression and morbid obesity History of Present Illness The patient presents for evaluation of a left breast lump. Left Breast Lump - She discovered a palpable mass in her left breast on 07/27/2024. - She is not menstruating and is uncertain about any associated drainage. - She mentions an unusual odor from her armpit. - No recent upper respiratory infections/ illness. - No there breast changes. Supplemental information: Last surgery in 02/2020. Most recent mammogram in 2021. Previous biopsy with marker placement approximately 12 years ago; two lumps identified, one located. Health maintenance reviewed. She was advised to schedule for mammogram. ROS: GENERAL: No malaise, significant weight loss or fever HEENT: No changes in hearing or vision, nose bleeds or other nasal problems NECK: No lumps, goiter, pain or significant neck swelling RESPIRATORY: No cough, wheezing or shortness of breath CARDIOVASCULAR: No chest pain, leg swelling or palpitations GI: No abdominal pain, hematochezia, melena : No dysuria, oliguria, polyuria, hematuria, flank pain MUSCULOSKELETAL: No joint pain or swelling, back pain, or muscle pain. SKIN: No lesions, rash or itching NEURO: No persistent headache, syncope, seizures, weakness or numbness PAST MEDICAL HISTORY: Patient Active Problem List Diagnosis Date Noted Abdominal pain 07/24/2024 Chronic bilateral low back pain with bilateral sciatica 06/29/2023 Mild intermittent asthma without complication 06/29/2023 Mixed hyperlipidemia 06/29/2023 Weight loss 10/24/2019 Urge incontinence 01/17/2018 Carpal tunnel syndrome 07/21/2017 Iron deficiency anemia 11/11/2011 Vitamin D deficiency 07/14/2011 Fibroids 03/24/2011 Anxiety 08/13/2010 Gallstones 04/30/2010 Uterine fibroid 04/30/2010 Allergic rhinitis 07/29/2008 Glaucoma 02/25/2008 Cervicalgia 07/17/2007 Obesity 07/07/2006 Anxiety and depression 03/07/2005 Asthma 03/07/2005 Past Surgical History: Procedure Laterality Date BREAST BIOPSY PROCEDURE: BX BREAST; PERC NEEDLE CORE W/IMAG GUID; COMMENT: lt pr pt CARPAL TUNNEL RELEASE PROCEDURE:CARPAL TUNNEL RELEASE CARPAL TUNNEL RELEASE Left 2000 PROCEDURE: HISTORICAL CARPAL TUNNEL REL; COMMENT: Right side SECTION PROCEDURE: SECTION SECTION PROCEDURE: HISTORICAL ; COMMENT: X 2 OTHER SURGICAL HISTORY 04/01/2019 PROCEDURE: DC DILATION & CURETTAGE DX&/THER NONOBSTETRIC TUBAL LIGATION PROCEDURE: HISTORICAL TUBAL LIGATION SOCIAL HISTORY: Social History Tobacco Use Smoking status: Never Smokeless tobacco: Never Substance Use Topics Alcohol use: Yes FAMILY HISTORY: Family History Problem Relation Name Age of Onset Hypertension Mother Glaucoma Mother Thyroid disease Mother Heart attack Father 54.00 no contact Leukemia Brother treated successfully Breast cancer Mother's side second cousin, dx 65 just prior to Other (Other: cancer of ovarian) Mother's side second cousin, dx age 62 Blindness Neg Hx Cataracts Neg Hx Macular degeneration Neg Hx Strabismus Neg Hx Colon cancer Neg Hx Prostate cancer Neg Hx Uterine cancer Neg Hx Family Status Relation Name Status Mother Alive Glaucoma, angina, arthritis; thyroid Father Alive AMI (40s); Father's entire family estranged Brother Alive Three brothers healthy Mother's cedric (Not Specified) Neg Hx (Not Specified) Sister Alive x 1; thyroid; Some type of heart disease MGF Killed in an accident MGM PGM PGF Daughter Alive 1998; healthy Son Alive 1984; healthy Son Alive 2003; healthy Brother Alive Brother Alive No partnership data on file MEDICATIONS DISCONTINUED/REORDERED: There are no discontinued medications. ACTIVE MEDICATIONS: No outpatient medications have been marked as taking for the 07/30/24 encounter (Office Visit) with MIGUEL A Braxton. ALLERGIES: Allergies Allergen Reactions Moxifloxacin Hives [place] as if her throat was swelling along w/rash/hives. Other Penicillins Rash PHYSICAL EXAM: Vitals: 07/30/24 1403 BP: (!) 110/90 Pulse: 78 Resp: 16 Temp: 36.9 ??C (98.5 ??F) Physical Exam APPEARANCE: Alert and in no acute distress. Breast: No palpable lump in the left breast. Tenderness to the left upper outer quadrant of the breast. No overlying skin changes. No erythema or edema. IMPRESSION: 1. Pain of left breast 2. Encounter for screening mammogram for malignant neoplasm of breast Assessment & Plan 1. Left breast lump: Tender. - Ordered mammogram and ultrasound as needed. - Referred to breast clinic for specialized evaluation. Follow-up in September as scheduled and sooner if needed. I have obtained verbal consent from Elli Webber prior to the recording. I have advised Elli Webber that she may refuse the recording and require the recording to be turned off at any time during this encounter. All questions and concerns were addressed. Elli Webber verbalizes understanding and agrees with this treatment plan. Patient was reminded to call or return to the office if any new or existing problems arise. Orders Placed This Encounter Procedures MG Mammo Digital Diagnostic w Chau Left MG Mammo Digital Screening w Chau bilat Ambulatory referral to Breast Clinic MG MAMMO DIGITAL DIAGNOSTIC W CHAU LEFT MG MAMMO DIGITAL SCREENING W CHAU BILAT AMB REFERRAL TO BREAST CLINIC MIGUEL A Braxton on 07/30/2024 at 4:50 PM EDT Today's documentation was made using voice recognition software.This note may contain grammatical errors secondary to this software. documented in this encounter Plan of Treatment Upcoming Encounters Date Type Department Care Team (Late st Contact Info) Description 08/14/2024 9:30 AM EDT Appointment Radiology Department - [address] [address] 08/19/2024 9:45 AM EDT Office Visit Pulmonolgy - [place] [address] [facility] [address] [place] [address] Loraine Sawyer MD 175 [facility] [address] [place] [address] 09/24/2024 9:00 AM EDT Consult [facility] [place] - [place] [address] [facility] [address] [place] [phone] Timothy Webster MD [address] [place] [phone] 10/15/2024 9:00 AM EDT Office Visit Adult Medicine [facility] [address] [place] [address] Krishan Zuniga MD [address] [place] [address] Scheduled Orders Name Type Priority Associated Diagnoses Orde r Schedule MG Mammo Digital Diagnostic w Chau Left Imaging Routine Pain of left breast Expected: 08/06/2024 (Approximate), Expires: 07/30/2025 MG Mammo Digital Screening w Chau bilat Imaging Routine Encounter for screening mammogram for malignant neoplasm of breast 1 Occurrences starting 07/30/2024 until 07/30/2025 Scheduled Referrals Name Type Priority Associated Diagnoses Order Schedule Ambulatory referral to Breast Clinic Outpatient Referral Routine Pain of left breast 1 Occurrences starting 07/30/2024 until 07/30/2025 documented as of this encounter Visit Diagnoses Diagnosis Pain of left breast- Primary Encounter for screening mammogram for malignant neoplasm of breast documented in this encounter Additional Health Concerns Assessment Noted Time PHQ-9 Depression Total Score: 18 025 4:23 PM EDT documented as of this encounter Care Teams Shoe Repair Supervisor Relationship Specialty Start Date End Date Krishan Zuniga MD [address] [place] [id number] PCP - General Internal Medicine 02/08/24 documented as of this encounter
--- OUTSIDE RECORDS SUMMARY | 2024-08-01 11:54 | XMS_ITS | Encounter Summary ---
Author Organization [facility] Address [address] [place] [address] Care Team Providers Care Food And Beverage Associate Name Role Phone Lisa Cruz MD Primary Care Provider [phone] Encounter Details Date Type Department Care Team (Late st Contact Info) Description 02/22/2021 Orders Only [facility] [address] [place] [address] Provider, Unknown, [address] [place] [address] Social History Tobacco Use Types [...] of this encounter Procedures * Due to [place] [employer] law, this organization might not be sharing negative HIV tests. Procedure Name Priority Date/Time Associated Diagnosis Comments AMB EXTERNAL MRI BRAIN, OUTS SAMUEL RESULT Routine 05/12/2020 documented in this encounter Results * Due to [place] [employer] law, this organization might not be sharing negative HIV tests. * MRI Brain, Outside Result (05/12/2020) Anatomical Region Laterality Modality Other us Unknown Provider AMB EXTERNAL RESULT PROCEDUR ES Final Result documented in this encounter Visit Diagnoses Not on filedocumented in this encounter Care Teams Food And Beverage Associate Relationship Specialty Start Date End Date Lisa Cruz MD PCP - General Internal Medicine 02/22/21 documented as of this encounter
== END 2024-08-01 11:14 | disposition home or self-care (01) ==
LOC: HO.HOS 10:46
PROVIDERS: PCP Internal Medicine; Visit Provider Orthopaedic Surgery
DX: M17.11 Unilateral primary osteoarthritis, right knee (principal)
CPT/HCPCS: 20610

== ENCOUNTER → 2024-08-01 10:46 | Outpatient (BNVA) | payer OTHER, SELFPAY | PROVIDERS: PCP Internal Medicine; Visit Provider Orthopaedic Surgery | DX: M17.11 Unilateral primary osteoarthritis, right knee (principal) | CPT/HCPCS: 20610; J7323 ==

== ENCOUNTER 2024-08-08 10:57 | Outpatient (AMB) | payer OTHER, SELFPAY ==
--- NOTE | 2024-08-08 11:05 | MHC.OFFVIS ---
Vital Signs 08/08/24 11:06 Height 5 ft 3 in Weight 238 lb BMI 42.2 Intake Visit Reasons: Right Knee Euflexxa #3 Intake Note: Elli is a 53 year old female who presents today for the third and final Right Knee Euflexxa. Patient reports that she has felt some relief from the first two injections. Allergies moxifloxacin [Avelox] Allergy (Unknown, Verified 11/09/23 12:40) Anaphylaxis penicillin V Allergy (Unknown, Verified 11/09/23 12:40) Hives Penicillins [PENICILLINS] Allergy (Unknown, Verified 11/09/23 12:40) HIVES From AVELOX Allergy (Unknown, Uncoded 11/09/23 12:40) THROAT SWELLS HPI HPI Right Knee Euflexxa #3: Details: Here for 3/3 Euflexxa. Doing well. No complaints. PFSH Medical History Asthma C. 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 Site was prepped using aseptic technique. Patient tolerated the procedure well. Shoulders, Hips, Knees, Knee Large Joint Injection : Left Knee Coding Procedure code (CPT) selection complete Assessment & Plan Assessment & Plan (1) Arthritis of right knee: Code(s): M17.11 - Unilateral primary osteoarthritis, right knee Category: Medical Plan: 3/3 Euflexxa. No concerns. Follow up 3 months as needed. Coding Level of Care Code Est Pt Level 2 (87672) Diagnoses Arthritis of right knee M17.11 CPT Codes Shoulders, Hips, Knees, - Knee Large Joint Injection 53778: Left Knee ([id number])
[2024-08-08 11:06] VITALS: BMI 42.2
--- OUTSIDE RECORDS SUMMARY | 2024-08-08 11:37 | XMS_ITS | Clinical Summary ---
Author Organization [facility] Address [address] [place] [address] Care Team Providers Care Core Java Software Engineer Name Role Phone Melina Keith MD Primary Care Provider [phone] Allergies Active Allergy Reactions Criticality Noted Date Comments Moxifloxacin 10/24/2019 Penicillins 10/24/2019 Medications Medication Sig Dispensed Refills Start Date End Date Status brimonidine (ALPHAGAN) 0.2 % ophthalmic solution 1 drop every 12 (twelve) hours. 0 Active ergocalciferol (VITAMIN D2) capsule 14952 units TAKE 1 CAPSULE BY MOUTH ONE TIME PER WEEK 12 capsule 4 12/13/2023 Active amitriptyline (ELAVIL) tablet 25 mg PLEASE SEE ATTACHED FOR DETAILED DIRECTIONS 162 tablet 0 12/13/2023 Active Active Problems Problem Noted Date Diagnosed Date Weight loss 10/24/2019 Iron deficiency anemia 11/11/2011 Social History Tobacco Use Types Packs/Day Years Used Date Smoking Tobacco: Never Smokeless Tobacco: Never Alcohol Use Standard Drinks/Week Comments No 0 (1 standard drink = 0.6 oz pur e alcohol) Sex and Gender Information Value Date Recorded Sex Assigned at Female 12/01/2021 3:28 PM EDT Gender Identity Not on file Sexual Orientation Not on file Job Start Date Occupation Industry Not on file Not on file Not on file Last Filed Vital Signs Vital Sign Reading Time Taken Comments Blood Pressure 113/74 01/11/2023 10:52 AM EDT Pulse 67 01/11/2023 10:52 AM EDT Temperature 36 ??C (96.8 ??F) 01/11/2023 10: 52 AM EDT Respiratory Rate - - Oxygen Saturation 95% 01/11/2023 10: 52 AM EDT Inhaled Oxygen Concentration - - Weight 107.8 kg (237 lb 9.6 oz) 023 10:52 AM EDT Height 160 cm (5' 3 ) 01/11/2023 10:52 AM EDT Body Mass Index 42.09 01/11/2023 10:52 AM EDT Plan of Treatment Health Maintenance Due Date Last Done Comments Hepatitis B Vaccines (1 of 3 - 3-dose series) 1968 Hepatitis C Screening 1968 COVID-19 Vaccine (#1) 05/25/1969 Depression Screening 1980 Preventative Health Evaluation 1986 Cervical Cancer Screening (Pap Smear) 1989 Colon Cancer Screening (Colonoscopy) 2013 Breast Cancer Screening (Mammogram) 2018 Shingrix-Zoster Vaccine (1 of 2) 2018 Influenza Vaccine (#1) 2023 0, 01/21/2018, 12/08/2016, Additional history exists DTap / Tdap / Td (2 - Td or Tdap) 11/09/2030 11/09/2020 Pneumococcal Vaccine Aged Out 03/22/2021 No long er eligible based on patient's age to complete this topic RSV Ped < 20 months Aged Out No longe r eligible based on patient's age to complete this topic Care Teams Core Java Software Engineer Relationship Specialty Start Date End Date Melina Keith MD PCP - General Internal Medicine 11/15/21
--- OUTSIDE RECORDS SUMMARY | 2024-08-08 11:37 | XMS_ITS | Encounter Summary ---
Author Organization [facility] Address [address] [place] [address] Care Team Providers Care Correctional Guard Name Role Phone Krishan Zuniga MD Primary Care Provider Reason for Visit * Reason Onset Date Comments medication 02/08/2024 Encounter Details Date Type Department Care Team (Late st Contact Info) Description 02/08/2024 Nurse Triage Adult Medicine [facility] [address] [place] [address] Melina Keith MD [address] [place], [place] medication Social History Tobacco Use Types [...] breath, wheezing, unable to speak) No 6. [id number]: Are you getting better, staying the same [...] test or self-test, diagnosed by doctor or RUBBER PRESS TENDER/PA, symptoms after exposure). Home test 9. COVID-19 [...] Unknown Protocols used: COVID-19 - Diagnosed or Gjhzvsmna-W-OH * Antionette Navas - 02/08/2024 2:27 PM EST Patient has tested positive for COVID and is looking for paxlovid to be sent to her current pharmacy. documented in this encounter Plan of Treatment Upcoming Encounters Date Type Department Care Team (Late st Contact Info) Description 08/14/2024 9:30 AM EDT Appointment Radiology Department - [address] [address] 08/14/2024 10:00 AM EDT Appointment Radiology Department - [address] [address] 08/19/2024 9:45 AM EDT Office Visit Pulmonolgy - [place] [address] [facility] [address] [place] [phone] Loraine Sawyer MD [address] [facility] [address] [place] [address] 09/24/2024 9:00 AM EDT Consult [facility] for [place] - [place] [address] [facility] [address] [place] [phone] Timothy Webster MD [address] [phone] 10/15/2024 9:00 AM EDT Office Visit Adult Medicine [address] [address] Krishan Zuniga MD [address] [place] [address] documented as of this encounter Visit Diagnoses Not on filedocumented in this encounter Care Teams Correctional Guard Relationship Specialty Start Date End Date Krishan Zuniga MD [address] [place] [address] PCP - General Internal Medicine 02/08/24 documented as of this encounter
--- OUTSIDE RECORDS SUMMARY | 2024-08-08 11:37 | XMS_ITS | Encounter Summary ---
Author Organization [facility] Address [address] [place] [address] Care Team Providers Care Audit Associate Name Role Phone Krishan Zuniga MD Primary Care Provider [phone] Encounter Details Date Type Department Care Team ([facility] st Contact Info) Description 07/30/2024 Telephone Bariatric Surgery - [place] 175 [facility] [address] [place] [address] Yoav Parikh MD 175 [facility] [address] [place] [address] Social History Tobacco Use Types Packs/Day Years [...] care for your loved ones. For example, school child care attendant or elderly care for an older adult? [...] 9:30 AM EDT Appointment Radiology Department - [address] [address] 08/14/2024 10:00 AM EDT Appointment Radiology Department - [address] [address] 08/19/2024 9:45 AM EDT Office Visit Pulmonolgy - [place] [address] [place] [phone] Loraine Sawyer MD [address] [place] [address] 09/24/2024 9:00 AM EDT Consult [facility] for [place] - [place] [address] [place] [address] Timothy Webster MD [address] [place] [phone] 10/15/2024 9:00 AM EDT Office Visit Adult Medicine [address] [address] Krishan Zuniga MD [address] [place] [address] documented as of this encounter Visit Diagnoses Not on filedocumented in this encounter Additional Health Concerns Assessment Noted Time PHQ-9 Depression Total Score: 18 025 4:23 PM EDT documented as of this encounter Care Teams Audit Associate Relationship Specialty Start Date End Date Krishan Zuniga MD [address] [place] [address] PCP - General Internal Medicine 02/08/24 documented as of this encounter
--- OUTSIDE RECORDS SUMMARY | 2024-08-08 11:37 | XMS_ITS | Referral Summary ---
Author Organization [facility] Address [address] [place] [address] Care Team Providers Care Assistant Floor Covering Printer Name Role Phone Lisa Cruz MD Primary Care Provider Allergies Active Allergy Reactions Criticality Noted Date Comments Moxifloxacin Hives 10/10/2009 [place] as if her throat was swelling along [...] on file Insurance [employer] Care Teams Assistant Floor Covering Printer Relationship Specialty Start Date End Date Lisa Cruz MD PCP - General Internal Medicine 02/22/21
--- OUTSIDE RECORDS SUMMARY | 2024-08-08 11:38 | XMS_ITS | Clinical Summary ---
Author Organization [facility] Address [address] [place] [address] Care Team Providers Care Technology Professional Name Role Phone Lisa Cruz MD Primary Care Provider [phone] Allergies Active Allergy Reactions Criticality Noted Date Comments Moxifloxacin Hives 10/10/2009 [place] as if her throat was swelling along [...] series) 11/26/2043 Insurance [employer] Care Teams Technology Professional Relationship Specialty Start Date End Date Lisa Cruz MD PCP - General Internal Medicine 02/22/21
--- OUTSIDE RECORDS SUMMARY | 2024-08-08 11:38 | XMS_ITS | Encounter Summary ---
Author Organization [facility] Address [address] [place] [address] Care Team Providers Care Cisco Unified Communications Engineer Name Role Phone Krishan Zuniga MD Primary Care Provider [phone] Encounter Details Date Type Department Care Team (Late st Contact Info) Description 08/02/2024 Nurse Triage Adult Medicine [facility] [address] [place] [address] Meg Mariano PA [address] [place] [address] Social History Tobacco Use Types Packs/Day Years [...] care for your loved ones. For example, attendant children's institution or elderly care for an older adult? [...] as of this encounter Progress Notes * Sarah Shaw RN - 08/02/2024 9:16 AM EDT Please see my chart message TAB for her anxiety was 07/16/24 with care team documented in this encounter Plan of Treatment Upcoming Encounters Date Type Department Care Team (Late st Contact Info) Description 08/14/2024 9:30 AM EDT Appointment Radiology Department - [address] [address] 08/14/2024 10:00 AM EDT Appointment Radiology Department - [address] [address] 08/19/2024 9:45 AM EDT Office Visit Pulmonolgy - [place] [address] [place] [phone] Loraine Sawyer MD [address] [place] [address] 09/24/2024 9:00 AM EDT Consult [facility] for [place] - [place] [address] [place] [address] Timothy Webster MD [address] [place] [phone] 10/15/2024 9:00 AM EDT Office Visit Adult Medicine [address] [address] Krishan Zuniga MD [address] [place] [address] documented as of this encounter Visit Diagnoses Not on filedocumented in this encounter Additional Health Concerns Assessment Noted Time PHQ-9 Depression Total Score: 18 025 4:23 PM EDT documented as of this encounter Care Teams Cisco Unified Communications Engineer Relationship Specialty Start Date End Date Krishan Zuniga MD [address] [place] [address] PCP - General Internal Medicine 02/08/24 documented as of this encounter
--- OUTSIDE RECORDS SUMMARY | 2024-08-08 11:38 | XMS_ITS | Clinical Summary ---
Author Organization [address] Address [address] [place] [phone] Phone Care Team Providers Care Stock Taker Name Role Phone Krishan Zuniga MD Primary Care Provider Allergies Active Allergy Reactions Criticality Noted Date Comments Moxifloxacin Hives 10/10/2009 [place] as if her throat was swelling along [...] in adult, unspecified whether serious comorbidity present ([facility] V24, [facility] V28) Take 1 tablet (50 mg total) [...] in adult, unspecified whether serious comorbidity present ([facility] V24, [facility] V28) Inject 0.5 mL (2.5 mg total) [...] in adult, unspecified whether serious comorbidity present ([facility] V24, [facility] V28) Inject 0.5 mL (2.5 mg total) [...] Encounters Date Type Department Care Team Description 08/02/2024 Nurse Triage [address] [address] Meg Mariano PA 07/30/2024 2:30 PM EDT Office Visit [address] [address] Meg Mariano PA Pain of left breast (Primary Dx); Encounter for screening mammogram for malignant neoplasm of breast 07/30/2024 Telephone Bariatric [address] [phone] Yoav Parikh MD 07/25/2024 3:45 PM EDT Office Visit Bariatric [address] [phone] Yoav Parikh MD Class 3 severe obesity due to excess calories with body mass index (BMI) of 40.0 to 44.9 in adult, unspecified whether serious comorbidity present (CMS/HCC V24, CMS/HCC V28) 07/24/2024 Telephone Bariatric [address] [phone] Yoav Parikh MD 07/16/2024 10:45 AM EDT Office Visit [address] [phone] Meg Mariano PA Anxiety and depression (Primary Dx); Rash 07/02/[address] [phone] Krishan Zuniga MD Referral 06/26/2024 10:30 AM EDT Office Visit Bariatric [address] [address] Yoav Parikh MD Class 3 severe obesity due to excess calories with body mass index (BMI) of 40.0 to 44.9 in adult, unspecified whether serious comorbidity present ([facility] V24, [facility] V28) (Primary Dx) 06/26/2024 Telephone Bariatric Surgery - [place] [address] [facility] [address] [place] [address] Yoav Parikh MD Med Refill (topiramate) 06/24/2024 11:00 AM EDT Office Visit Adult Medicine [address] [phone] Meg Mariano PA Anxiety and depression (Primary Dx); Elevated blood pressure reading; Moderate persistent asthma, unspecified whether complicated; Encounter for screening mammogram for malignant neoplasm of breast; Class 3 severe obesity due to excess calories with serious comorbidity and body mass index (BMI) of 40.0 to 44.9 in adult ([facility] V24, [facility] V28); Migraine with aura and without status migrainosus, not intractable 06/24/2024 Telephone Adult Medicine [address] [phone] Krishan Zuniga MD Forms/questionnaires from Last 3 [...] pr pt OTHER SURGICAL HISTORY 04/01/2019 PROCEDURE: [place] DILATION & CURETTAGE DX&/THER NONOBSTETRIC Medical History [...] Alive 1998; healthy Father Alive AMI (40s); [facility]'s entire family estranged Maternal Grandfather Killed in [...] for your loved ones. For example, child and family therapist or elderly care for an older adult? [...] 9:30 AM EDT Appointment Radiology Department - [address] [address] 08/14/2024 10:00 AM EDT Appointment Radiology Department - [address] [address] 08/19/2024 9:45 AM EDT Office Visit Pulmonolgy - [place] [address] [phone] Loraine Sawyer MD 175 [facility] 200 [place] [address] 09/24/2024 9:00 AM EDT Consult [facility] for [place] - [place] [address] [phone] Timothy Webster MD [address] [phone] 10/15/2024 9:00 AM EDT Office Visit Adult Medicine [address] [address] Krishan Zuniga MD [address] [place] [address] Health Maintenance Due Date Last Done Comments [...] Health Maintenance Results * Depression Screening (11/16/2023) Pathologist [facility] Depression Screening abstracted [facility] Provider HEALTH MAINTENANCE Final Result * Colonoscopy (08/16/2023) Pathologist [facility] Colonoscopy no interpretation , abstracted Anatomical Region Laterality Modality Other [facility] Provider HEALTH MAINTENANCE Final Result * Hepatitis C Screening (04/14/2023) Pathologist [facility] Hepatitis C Screening abstracted [facility] Provider HEALTH MAINTENANCE Final Result * (ABNORMAL) Lipid panel (04/14/2023) [facility] LDL/HDL Ratio 3 0 - 4 Triglycerides 90 0 - 150 mg/dL Cholesterol 262(A) 0 - 200 mg/dL HDL 92 >=40 mg/dL LDL Cholesterol 152(A) 0 - 100 mg/dL Blood Venous blood specimen / Unknown Historical Provider LAB BLOOD ORDERABLES Gale l Result * Pap Smear (05/01/2019) HM Pap smear no [...] Please see combined report, same date. Result [facility] Karl GRADY IMG BI PROCEDURES Final Result from Last 3 Months or Most Recently Relevant to Health Maintenance Insurance [facility] Care Teams Stock Taker Relationship Specialty Start Date End Date Krishan Zuniga MD [address] [place] [address] PCP - General Internal Medicine 02/08/24
--- OUTSIDE RECORDS SUMMARY | 2024-08-08 11:38 | XMS_ITS | Encounter Summary ---
Author Organization [facility] Address [address] [place] [address] Care Team Providers Care Blueprinter Name Role Phone Lisa Cruz MD Primary Care Provider [phone] Encounter Details Date Type Department Care Team (Late st Contact Info) Description 02/22/2021 Orders Only [facility] [address] [place] [address] Provider, Unknown, [address] [place] [address] Social History Tobacco Use Types [...] of this encounter Procedures * Due to [place] law, this organization might not be sharing negative HIV tests. Procedure Name Priority Date/Time Associated Diagnosis Comments AMB EXTERNAL MRI BRAIN, OUTS SAMUEL RESULT Routine 05/12/2020 documented in this encounter Results * Due to [place] law, this organization might not be sharing negative HIV tests. * MRI Brain, Outside Result (05/12/2020) Anatomical Region Laterality Modality Other us Unknown Provider AMB EXTERNAL RESULT PROCEDUR ES Final Result documented in this encounter Visit Diagnoses Not on filedocumented in this encounter Care Teams Blueprinter Relationship Specialty Start Date End Date Lisa Cruz MD PCP - General Internal Medicine 02/22/21 documented as of this encounter
== END 2024-08-08 11:19 | disposition home or self-care (01) ==
LOC: HO.HOS 10:57
PROVIDERS: PCP Internal Medicine; Visit Provider Orthopaedic Surgery
DX: M17.11 Unilateral primary osteoarthritis, right knee (principal)
CPT/HCPCS: 20610

== ENCOUNTER → 2024-08-08 10:57 | Outpatient (BNVA) | payer OTHER, SELFPAY | PROVIDERS: PCP Internal Medicine; Visit Provider Orthopaedic Surgery | DX: M17.11 Unilateral primary osteoarthritis, right knee (principal) | CPT/HCPCS: 20610; J7323 ==

== ENCOUNTER 2024-11-11 10:29 | Outpatient (AMB) | payer OTHER, SELFPAY ==
--- NOTE | 2024-11-11 10:45 | MHC.OFFVIS ---
Vital Signs 11/11/24 10:48 Height 5 ft 3 in Weight 238 lb BMI 42.2 Intake Visit Reasons: OV- Right Knee s/p Euflexxa 08/08/24 Intake Note: Elli is a 53 year old female who presents today for a follow up of her Right Knee OA. 3 months s/p Right Knee Euflexxa series. patient reports that the injection had provided initial relief and the pain had returned two weeks ago. pain was a 9 on the scale in the morning but is not feeling any pain currently, she would like to request pain medication Allergies moxifloxacin (Avelox) Allergy (Unknown, Verified 11/09/23 12:40) Anaphylaxis penicillin V Allergy (Unknown, Verified 11/09/23 12:40) Hives Penicillins (PENICILLINS) Allergy (Unknown, Verified 11/09/23 12:40) HIVES From AVELOX Allergy (Unknown, Uncoded 11/09/23 12:40) THROAT SWELLS HPI HPI OV- Right Knee s/p Euflexxa 08/08/24: Details: Elli is a 53 year old female who presents today for a follow up of her Right Knee OA. 3 months s/p Right Knee Euflexxa series. patient reports that the injection had provided initial relief and the pain had returned two weeks ago. She started taking diclofenac recently which also helped with her knee pain. Now she states she almost canceled this appointment because she was feeling good but does want to have gel injections again if possible. [facility] Medical History Asthma C. 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 Usually this is about 6 months. In the meantime she should remain active. I have refilled her diclofenac prescription which she can take PRN. Coding Level of Care Code Est Pt Level 3 (99420) Diagnoses Arthritis of right knee M17.11
[2024-11-11 10:48] VITALS: BMI 42.2
--- OUTSIDE RECORDS SUMMARY | 2024-11-11 11:39 | XMS_ITS | Clinical Summary ---
Author Organization [facility] Address [address] [place] [address] Care Team Providers Care Car Mechanic Helper Name Role Phone Lisa Cruz MD Primary Care Provider [phone] Allergies Active Allergy Reactions Criticality Noted Date Comments Moxifloxacin Hives 10/10/2009 [place] as if her throat was swelling along [...] 80 02/22/2021 1:45 PM EST Temperature 36.6 C (97.9 F) 02/22/2021 1:45 PM EST Respiratory Rate 16 02/22/2021 1:45 PM EST [...] Health Tiff ual Screening 03/20/2024 Influenza Vaccine (#1) 2024 3, 01/03/2022, 12/06/2020, Additional history exists DTaP,Tdap,and Td Vaccines (2 - Td or Tdap) 11/09/2030 11/09/2020, 06/27/2017, 04/08/2004 RSV Vaccine (60+ years old a nd patients) (1 - 1-dose 75+ series) 11/26/2043 Insurance [employer] Care Teams Car Mechanic Helper Relationship Specialty Start Date End Date Lisa Cruz MD PCP - General Internal Medicine 02/22/21
--- OUTSIDE RECORDS SUMMARY | 2024-11-11 11:39 | XMS_ITS | Clinical Summary ---
Author Organization [facility] Address [address] [place] [address] Care Team Providers Care Strategy Specialist Name Role Phone Melina Keith MD Primary Care Provider [phone] Allergies Active Allergy Reactions Criticality Noted Date Comments Moxifloxacin 10/24/2019 Penicillins 10/24/2019 Medications Medication Sig Dispensed Refills Start Date End Date Status brimonidine (ALPHAGAN) 0.2 % ophthalmic solution 1 drop every 12 (twelve) hours. 0 Active ergocalciferol (VITAMIN D2) capsule 05534 units TAKE 1 CAPSULE BY MOUTH ONE [...] 67 01/11/2023 10:52 AM EDT Temperature 36 C (96.8 F) 01/11/2023 10:52 AM EDT Respiratory Rate - - Oxygen Saturation 95% 01/11/2023 10: 52 AM EDT Inhaled Oxygen Concentration - - Weight 107.8 kg (237 lb 9.6 oz) 10/25/2 023 10:52 AM EDT Height 160 cm [...] (1 of 2) 2018 Influenza Vaccine (#1) 2024 0, 01/21/2018, 12/08/2016, Additional history exists DTap / Tdap / Td (2 - Td or Tdap) 11/09/2030 11/09/2020 Pneumococcal Vaccine Aged Out 03/22/2021 No long er eligible based on patient's age to complete this topic RSV Ped < 20 months Aged Out No longe r eligible based on patient's age to complete this topic Care Teams Strategy Specialist Relationship Specialty Start Date End Date Melina Keith MD PCP - General Internal Medicine 11/15/21
--- OUTSIDE RECORDS SUMMARY | 2024-11-11 11:39 | XMS_ITS | Encounter Summary ---
Author Organization [facility] Address [address] [place] [address] Care Team Providers Care Cash Applications Specialist Name Role Phone Lisa Cruz MD Primary Care Provider Krishan Mendoza Primary Care Provider [phone] Encounter Details Date Type Department Care Team Description 07/17/2019 Monotype Caster Report Medical Records [address] [place] [address] Gamal Burnett MD Social History Tobacco Use [...] on filedocumented in this encounter Care Teams Cash Applications Specialist Relationship Specialty Start Date End Date Lisa Cruz MD PCP - General Internal Medicine 01/12/11 10/17/21 Krishan Zuniga [address] [place] [address] [phone] PCP - General Internal Medicine 10/18/21 documented as of this encounter
--- OUTSIDE RECORDS SUMMARY | 2024-11-11 11:39 | XMS_ITS ---
Author Name [facility] Organization Unknown Care Team Organization Name Specialty Phone Email Start Date End Da te [facility] Krishan Zuniga Primary Care 05/25/202210/18 [facility] Joyce Flood Primary Care 01/25/20222023
--- OUTSIDE RECORDS SUMMARY | 2024-11-11 11:39 | XMS_ITS | Encounter Summary ---
Author Organization [facility] Address [address] [place] [address] Care Team Providers Care Outbound Telemarketer Name Role Phone Krishan Zuniga MD Primary Care Provider [phone] Reason for Visit * Reason Onset Date Comments medication 02/08/2024 Encounter Details Date Type Department Care Team (Late st Contact Info) Description 02/08/2024 Nurse Triage Adult Medicine [facility] [address] [place], [place] [phone] Melina Keith MD [address] [place], [place] medication Social History Tobacco Use Types [...] breath, wheezing, unable to speak) No 6. [id number]: Are you getting better, staying the same [...] test or self-test, diagnosed by doctor or FRONT OFFICE SPEC/PA, symptoms after exposure). Home test 9. COVID-19 [...] Unknown Protocols used: COVID-19 - Diagnosed or [id number] * Antionette Navas - 02/08/2024 2:27 PM EST Patient has tested positive for COVID and is looking for paxlovid to be sent to her current pharmacy. documented in this encounter Plan of Treatment Upcoming Encounters Date Type Department Care Team (Late st Contact Info) Description 12/12/2024 2:40 PM EDT Consult Breast Care [facility] [address] [place] [phone] Kehinde Card MD [address] [place] [address] 01/15/2025 10:30 AM EDT Office Visit [facility] [address] [phone] Timothy Webster MD [address] [phone] 02/20/2025 9:30 AM EST Office Visit Pulmonolgy - [place] [address] [facility] [address] [place] [phone] Loraine Sawyer MD 175 [facility] [address] [place] [address] 03/04/2025 2:15 PM EST Office Visit Bariatric Surgery - [place] 175 [facility] [address] [place] [phone] Yoav Parikh MD 175 [facility] [address] [place] [address] documented as of this encounter Visit Diagnoses Not on filedocumented in this encounter Care Teams Outbound Telemarketer Relationship Specialty Start Date End Date Krishan Zuniga MD [address] [place] [id number] PCP - General Internal Medicine 02/08/24 documented as of this encounter
--- OUTSIDE RECORDS SUMMARY | 2024-11-11 11:39 | XMS_ITS | Encounter Summary ---
Author Organization [facility] Address [address] [facility] [address] [place] [address] Phone Care Team Providers Care Pari Mutuel Ticket Cashier Name Role Phone Lisa Cruz MD Primary Care Provider [phone] Encounter Details Date Type Department Care Team (Late st Contact Info) Description 11/01/2024 Telephone [facility] Pain Management [address] [facility] [address] [place] [address] Josef Roberson MD, CADENCE [address] [place] [address] [email or web address] Social History Tobacco Use Types Packs/Day Years Used Date Smoking Tobacco: Never Assessed Education Answer Date Recorded Are you interested in more education? Not on sugey e 07/14/2022 Are you concerned about learning? Not on file 07/14/2022 No 07/14/2022 No 07/14/2022 Digital Access Answer Date Recorded No 08/16/2022 No 08/16/2022 Reliable internet access at home? Not on file 08/16/2022 Device with a working camera? Not on file Comments Unknown Sex and Gender Information Value Date Recorded Sex Assigned at Not on file Legal Sex Female 2:32 PM EDT Gender Identity Not on file Sexual Orientation Not on file documented as of this encounter Plan of Treatment Not on file documented as of this encounter Visit Diagnoses Not on filedocumented in this encounter Care Teams Pari Mutuel Ticket Cashier Relationship Specialty Start Date End Date Lisa Cruz MD [address] [place] [address] PCP - General Internal Medicine 09/05/21 documented as of this encounter Additional Source Comments The information contained in this document represents components of the legal health record. It is not the complete legal health record.[facility]
== END 2024-11-11 11:32 | disposition home or self-care (01) ==
LOC: HO.HOS 10:31
PROVIDERS: PCP Internal Medicine; Visit Provider Orthopaedic Surgery
DX: M17.11 Unilateral primary osteoarthritis, right knee (principal)
CPT/HCPCS: 99213

== ENCOUNTER → 2024-11-11 10:29 | Outpatient (BNVA) | payer OTHER, SELFPAY | PROVIDERS: PCP Internal Medicine; Visit Provider Orthopaedic Surgery | DX: M25.561 Pain in right knee (principal); M17.11 Unilateral primary osteoarthritis, right knee | CPT/HCPCS: 99212 ==

== ENCOUNTER 2024-12-02 09:38 | Emergency (ER) | payer OTHER, SELFPAY ==
--- NOTE | 2024-12-02 | ECG_ITS ---
Test Reason : CP Blood Pressure : */* mmHG Vent. Rate : 83 BPM Atrial Rate : 83 BPM P-R Int : 144 ms QRS Dur : 80 ms QT Int : 370 ms P-R-T Axes : 40 40 26 degrees QTcB Int : 434 ms Normal sinus rhythm Normal ECG When compared with ECG of 06-Oct-2021 01:57, No significant change was found Referred By: Generic ED Physician Electronically Signed By: RICKIE GANDHI
--- NOTE | ~2024-12-02 | XR_ITS ---
EXAMINATION: XR CHEST CLINICAL INFORMATION: chest pain COMPARISON: October 06 2021 TECHNIQUE: Frontal view of the chest was obtained. FINDINGS: No significant abnormality is noted involving the heart, lungs, mediastinum, bony thorax or soft tissues. XR/XR chest 1V IMPRESSION: No acute disease Electronically signed by: Jose Deleon MD 12/02/2024 10:46 AM EDT
[2024-12-02 10:03] VITALS: BP 161/82; PULSE 82; RESP 20; TEMP 36; O2SAT 97; BMI 46.3
--- NOTE | 2024-12-02 10:03 | ED.GENADULT ---
HPI - General Adult General Chief complaint: Chest Pain Stated complaint: CP Time Seen by Provider: 12/02/24 14:40 History of Present Illness ED Provider: Néstor DUMONT narrative: The patient is a 54-year-old woman who says that she developed sharp left-sided chest pain this morning while at home. She said that she was not really doing anything in particular. There was no straining involved. It was all fairly sudden and spontaneous. She says that it was quite uncomfortable and she put up with the discomfort for about an hour before coming to the emergency room. No fever, sweats, chills. The pain was worse with breathing. No new pain or swelling in her legs but she has chronically swollen like she says. No fever, sweats, chills. No cough or sputum. The patient says that she has recently been having respiratory problems that has been attributed to long COVID. She has a COVID infection in January of 2024. She has seen a internal medicine hospitalist. Related Data Previous Rx's ?Medication ?Instructions ?Recorded diclofenac sodium 1 % topical gel 2 g topical QID #100 grams 11/04/24 diclofenac sodium 50 mg 50 mg PO BID PRN pain #60 tabs 11/11/24 tablet,delayed release Allergies Allergy/AdvReac Type Severity Reaction Status Date / Time moxifloxacin (Avelox) Allergy Unknown Anaphylaxis Verified 12/02/24 10:08 penicillin V Allergy Unknown Hives Verified 12/02/24 10:08 Penicillins (PENICILLINS) Allergy Unknown HIVES Verified 12/02/24 10:08 From AVELOX Allergy Unknown THROAT Uncoded 12/02/24 10:08 KISHALLBecca Review of Systems Review of Systems: Yes all other systems are reviewed and are negative [facility] Past Medical History Medical History Asthma C. 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 She does not appear in acute distress and said she was feeling better spontaneously. HENMT Other: The face is symmetrical. Mucous membranes moist. Eyes Other: Pupils are round equal, conjunctivae are clear, extraocular movements intact Neck Neck: Yes full ROM and Yes no JVD Chest Other: There is tenderness to the left chest wall under the breast at the anterior axillary line. Resp Effort & Inspection: normal respiratory effort Auscultation: clear to auscultation bilaterally Cardio Rate: regular rate Rhythm: regular rhythm Heart sounds: S1 normal heart sound present and S2 normal heart sound present GI Other: Abdomen is soft and nontender Skin Other: The skin is dry and unremarkable Extrem Other: the patient is fairly thick calves but no definite edema. No significant asymmetry. No significant tenderness. She has a lot of varicosities. Course Course Course Narrative: This is a rapid medical exam performed by Enio Robledo NP: Additional HPI, ROS, PE not included below will be deferred to primary provider. Patient is a 54-year-old F with pmhx of COPD, long Covid since Jan 2024 presenting with complaint of left lateral rib pain which radiated to the back, lasted around 5 mins. Happened while getting up out of chair. Later moved to left upper chest. Plan: EKG, labs, CXR Medical Decision Making Medical Decision Making MDM Narrative: The patient is a 54-year-old female who developed abrupt onset left-sided pleuritic chest pain while doing nothing in particular this morning. She presented to the emergency room 1 hour after the onset of the pain. she has a normal chest x-ray, normal EKG, undetectable troponins and a normal D-dimer. I suspect this is probably chest wall pain although the patient seemed to feel that her pain improved in the emergency room after she drank some Pepsi. I think that the pain is likely either some form of dyspepsia or chest wall pain. In either case the patient may be discharged. Lab Data 12/02/24 09:51 12/02/24 09:51 Labs: Lab Results 12/02/24 12/02/24 Range/Units 09:51 13:34 WBC 7.7 (4.8-10.8) X10*3/uL RBC 4.55 (4.20-5.50) X10*6/uL Hgb 13.8 D (12.0-16.0) g/dl Hct 41.6 D (37.0-47.0) % MCV 91.4 (80.0-98.0) fL MCH 30.3 (27.0-33.0) pg MCHC 33.2 (31.0-35.0) g/dl RDW 13.7 (11.0-16.0) % Plt Count 356 (160-400) X10*3/uL MPV 9.1 L (9.4-12.3) fL Immature Gran % (Auto) 0.4 (0.0-0.4) % Neut % (Auto) 60.9 (45-73) % Lymph % (Auto) 26.3 (20-40) % Grant % (Auto) 9.1 (2-11) % Eos % (Auto) 2.7 (0-4) % Baso % (Auto) 0.6 (0-2) % Lymph # (Auto) 2.0 (1.2-4.9) X10*3/uL Grant # (Auto) 0.7 (0.1-1.2) X10*3/uL Eos # (Auto) 0.2 (0.0-0.4) X10*3/uL Baso # (Auto) 0.1 (0.0-0.2) X10*3/uL Abs Immat Gran (auto) 0.03 (0.00-0.03) X10*3/uL Absolute Neuts (auto) 4.7 (2.0-8.3) x10*3/uL Absolute Nucleated RBC 0.000 (0.0-0.012) X10*3/uL Nucleated RBC % (auto) 0.0 (0.0-0.2) /100WBC PT 10.8 L (10.9-12.4) SEC INR 0.9 (0.9-1.1) D-Dimer High Sensitivty 188 NG/ML Sodium 142 (135-145) mmol/L Potassium 4.7 (3.3-5.1) mmol/L Chloride 108 (96-108) mmol/L Carbon Dioxide 26 (22-29) mmol/L Anion Gap 13 (12-20) BUN 17 H (9-16) mg/dL Creatinine 0.65 (0.5-1.4) mg/dL Estim Creat Clear Calc 120.3 Estimated GFR > 60 Random Glucose 83 (60-115) mg/dL Calcium 9.5 (8.4-10.2) mg/dL Total Bilirubin 0.2 (0.0-1.0) mg/dL AST 24 (5-31) U/L ALT 33 H (0-31) U/L Alkaline Phosphatase 70 (39-117) U/L Troponin I High Sens < 2.7 < 2.7 (<3.5-17.0) ng/L Total Protein 7.5 (6.5-8.0) g/dL Albumin 4.4 (3.5-5.0) g/dL COVID-19 (FLAKITO) Negative (Negative) COVID-19 Clin Com See Note Influenza Type A (JAME) Negative (Negative) Influenza Type B (JAME) Negative (Negative) Influenza A & B Note See Note Independent Interpretation I performed an independent interpretation of an: EKG Interpretation: EKG at 09:44 shows Normal sinus rhythm at 83 beats per minute. It is a normal EKG. Discharge Plan Discharge Clinical Impression: Left-sided chest pain Patient Disposition: Home, Self-Care Additional Instructions: Your testing in the emergency room today is very reassuring. Your chest x-ray is normal. Your EKG is normal. The blood tests that we used to look for a heart attack, the troponin level, is normal. The blood test that we used to check for a possible blood clot, the D-dimer, is also normal. I am not certain if your pain was related to a musculoskeletal issue or whether this was some kind of passing stomach problem. In any event I do not think an acutely dangerous process is at work. Please plan on following up with your regular doctor to discuss this episode further. If you are significantly worse please return to the emergency department. Prescriptions: No Action diclofenac sodium 1 % gel 2 g topical QID Qty: 100 2RF diclofenac sodium 50 mg tablet,delayed release (DR/EC) 50 mg PO BID PRN (Reason: pain) Qty: 60 2RF Referrals: Krishan Zuniga MD [Primary Care Provider, Internal Medicine] Interventions: ED Discharge Assessment Last Done: 12/02/24 15:52 Discharge Date/Time: 12/02/24 15:58 Print Language: Kinyarwanda
--- NOTE | 2024-12-02 10:03 | MHC.EDTECH ---
Patient brought into triage area,EKG taken per order and signed by provider, labs drawn and sent to lab.
[2024-12-02 10:13] LABS: MANUAL DIFF FLAG NO
[2024-12-02 10:15] LABS: Hematocrit 41.6 % (37.0-47.0); Hemoglobin 13.8 g/dl (12.0-16.0); Imm Gran Abs Auto 0.03 X10*3/uL (0.00-0.03); Imm Gran Pct Auto 0.4 % (0.0-0.4); Lymphocytes Absolute Auto 2.0 X10*3/uL (1.2-4.9); Mean Corpuscular HGB Conc 33.2 g/dl (31.0-35.0); Mean Corpuscular Hemoglobin 30.3 pg (27.0-33.0); Mean Corpuscular Volume 91.4 fL (80.0-98.0); NRBC Abs Auto 0.000 X10*3/uL (0.0-0.012); NRBC Pct Auto 0.0 /100WBC (0.0-0.2); Platelet Count 356 X10*3/uL (160-400); Red Blood Count 4.55 X10*6/uL (4.20-5.50); White Blood Count 7.7 X10*3/uL (4.8-10.8)
[2024-12-02 10:19] LABS: INTERNATIONAL NORM RATIO 0.9 (0.9-1.1); Prothrombin Time 10.8 SEC (10.9-12.4)
[2024-12-02 10:30] LABS: Alanine Aminotransferase 33 U/L (0-31); Albumin Level 4.4 g/dL (3.5-5.0); Alkaline Phosphatase 70 U/L (39-117); Anion Gap 13 (12-20); Aspartate Amino Transferase 24 U/L (5-31); Blood Urea Nitrogen 17 mg/dL (9-16); Calcium 9.5 mg/dL (8.4-10.2); Carbon Dioxide 26 mmol/L (22-29); Chloride 108 mmol/L (96-108); Creatinine Clr Calc Pharmacy 120.3; Estimated Glomerular Filt Rate > 60; Potassium 4.7 mmol/L (3.3-5.1); Sodium 142 mmol/L (135-145); Total Protein 7.5 g/dL (6.5-8.0)
[2024-12-02 10:39] LABS: Troponin-I High Sensitivity < 2.7 ng/L (<3.5-17.0)
--- OUTSIDE RECORDS SUMMARY | 2024-12-02 12:49 | XMS_ITS | Clinical Summary ---
Author Organization [facility] Address [address] [facility] [address] [place] [id number] Phone Care Team Providers Care Maintenance Of Way Foreman Name Role Phone Lisa Cruz MD Primary Care Provider [phone] Allergies Active Allergy Reactions Criticality Noted Date Comments Moxifloxacin 09/05/2021 Penicillins 09/05/2021 Medications diclofenac sodium (VOLTAREN) 1 % Gel Apply 4 g topically 4 (four) times a day. 20 g Active Encounters Date Type Department Care Team Description 11/01/2024 Telephone [facility] Pain Management [address] [address] [place] [phone] Josef Roberson MD, CADENCE from Last 3 Months Social History Tobacco Use Types Packs/Day Years [...] Sign Reading Time Taken Comments Blood Pressure 128/71 09/05/2021 2:39 PM EDT Pulse 83 09/05/2021 2:39 PM EDT Temperature 36.7 C (98.1 F) 09/05/2021 2:39 PM EDT Respiratory Rate 18 09/05/2021 2:39 PM EDT Oxygen Saturation 98% 09/05/2021 2:39 PM EDT Inhaled Oxygen Concentration - - Weight 81.6 kg (180 lb) 09/05/2021 2:39 PM EDT Height 160 cm (5' 3 ) 09/05/2021 2:39 PM EDT Body Mass Index 31.89 09/05/2021 2:39 PM EDT Plan of Treatment Health Maintenance Due Date Last Done Comments LIPID PANEL 1968 DEPRESSION SCREENING 1980 SMOKING Hx and SMOKELESS TOBACCO SCREENING 1981 HEPATITIS C SCREENING 1986 HIV ONE-TIME SCREENING (18-65 YEARS) 1986 PAP SMEAR 1989 MAMMOGRAM 2008 COLOGUARD 2013 COLONOSCOPY 2013 COLORECTAL CANCER SCREENING 2013 FIT TEST 2013 FOBT 2013 SIGMOIDOSCOPY 2013 VIRTUAL COLONOSCOPY 2013 ZOSTER VACCINES (1 of 2) 2018 PNEUMOCOCCAL VACCINES (50+ years) (2 of 2 - PCV) 03/22/2022 03/22/2021 INFLUENZA VACCINE (#1) 2024 , 01/21/2018, 12/08/2016, Additional history exists COVID-19 VACCINE ( season) 2024 02/23/2021, 07/02/2020, 06/04/2020 Adult Td,Tdap Booster 11/09/2030 11/09/2020 HEPATITIS A VACCINES Aged Out No long er eligible based on patient's age to complete this topic HIB VACCINES Aged Out No longer eligi ble based on patient's age to complete this topic MENINGOCOCCAL VACCINES (ACWY) Aged Out No longer eligible based on patient's age to complete this topic MENINGOCOCCAL VACCINES (B) Aged Out N o longer eligible based on patient's age to complete this topic Medical Devices Not on file Insurance [employer] Care Teams Maintenance Of Way Foreman Relationship Specialty Start Date End Date Lisa Cruz MD [address] [place] [address] PCP - General Internal Medicine 09/05/21 Additional Source Comments The information contained in this document represents components of the legal health record. It is not the complete legal health record.[facility]
--- OUTSIDE RECORDS SUMMARY | 2024-12-02 12:49 | XMS_ITS | Clinical Summary ---
Author Organization [address] Address [address] [place] [phone] Phone Care Team Providers Care Cuffing Machine Operator Name Role Phone Krishan Zuniga MD Primary Care Provider Allergies Active Allergy Reactions Criticality Noted Date Comments Moxifloxacin Hives 10/10/2009 Ahmeek as if her throat was swelling along w/rash/hives. Penicillins Rash 03/07/2005 Pollen Extracts 09/24/2024 Medications acetaminophen (TYLENOL) 325 mg tablet Take 2 tablets (650 mg total) by mouth every 8 (eight) hours if needed. 4 Active brimonidine (ALPHAGAN) 0.2 % ophthalmic solution Administer 1 drop into affected eye(s). Active fluticasone propion-salmete roL (Wixela Inhub) 500-50 mcg/dose diskus inhaler Inhale 1 puff by mouth 2 (two) times a day. Rinse mouth with water after use to reduce aftertaste and incidence of candidiasis. Do not swallow. 1 each 12 5 04/19/19 26 Active cholecalciferol (Vitamin D3) 50 mcg (2,000 unit) tablet Take 1 tablet (2,000 Units total) by mouth 1 (one) time each day. 90 tablet 1 5 Active ascorbic acid (VITAMIN C) 500 mg tablet Take 1 tablet (500 mg total) by mouth 1 (one) time each day. 90 tablet 1 5 Active loratadine (CLARITIN) 10 mg tablet TAKE 1 TABLET BY MOUTH EVERY DAY 90 tablet 1 5 Active Ventolin HFA 90 mcg/actuation inhaler INHALE 2 PUFFS INTO THE LUNGS EVERY 4 HOURS NEEDED FOR COUGH OR WHEEZING. 18 each 11 5 Active celecoxib (CeleBREX) 50 mg capsule TAKE 1 CAPSULE BY MOUTH TWICE A DAY 180 capsule 1 5 Active hydrOXYzine HCL (ATARAX) 10 mg tablet TAKE 1 TABLET (10 MG TOTAL) BY MOUTH 3 TIMES A DAY NEEDED FOR ANXIETY 270 tablet 1 5 Active albuterol 2.5 mg /3 mL (0.083 %) nebulizer solution USE 1 VIAL VIA NEBULIZER EVERY 4 HOURS NEEDED FOR WHEEZE 375 mL 1 5 Active ergocalciferol (VITAMIN D-2) 1,250 mcg (50,000 unit) capsule Take 1 capsule (50,000 Units total) by mouth 1 (one) time per week. 12 capsule 5 12/24/19 25 Active cyclobenzaprine (FLEXERIL) 10 mg tablet Take 1 tablet (10 mg total) by mouth at bedtime as needed for muscle spasms. 30 tablet 5 12/09/19 25 Active diclofenac (Cataflam) 50 mg tablet Take 1 tablet (50 mg total) by mouth 2 (two) times a day for 10 days. 20 each 5 Active Pulmicort Flexhaler 90 mcg/actuation inhaler INHALE 2 PUFFS BY MOUTH 2 TIMES A DAY. RINSE MOUTH WITH WATER AFTER USE DO NOT SWALLOW 1 each 2 5 Active gabapentin (NEURONTIN) 100 mg capsule TAKE 1 CAPSULE BY MOUTH TWICE A DAY 60 capsule 2 5 Active tirzepatide, weight loss, (Zepbound) 7.5 mg/0.5 mL injectionIndica tions:Morbid obesity (CMS/HCC V24, CMS/HCC V28) Inject 0.5 mL (7.5 mg total) under the skin every 7 (seven) days. 2 mL 5 11/29/19 25 Active Problems Problem Noted Date Diagnosed Date [...] Encounters Date Type Department Care Team Description 11/19/2024 Telephone Bariatric Surgery - [place] [address] [facility] [address] [place] [phone] Yoav Parikh MD 10/09/2024 10:15 AM EDT Office Visit [facility]In [facility] - [address] [phone] Kalyn Duong NP Muscle strain (Primary Dx) 10/02/2024 9:44 AM EDT - 10/02/2024 11:59 PM EDT Hospital Encounter [facility] MRI [address] [place] [address] Migraine with aura and without status migrainosus, not intractable; Memory change; Tension headache Discharge Disposition: Home or Self Care 09/24/2024 9:30 AM EDT Office Visit [facility] [place] [address] [facility] [address] [place] [phone] Timothy Webster MD Memory change (Primary Dx); Migraine with aura and without status migrainosus, not intractable; Tension headache; Vitamin D deficiency 09/24/2024 Telephone Bariatric Surgery - [address] [place] [address] Yoav Parikh MD from Last 3 Months Immunizations Name Administration [...] pr pt OTHER SURGICAL HISTORY 04/01/2019 PROCEDURE: NV DILATION & CURETTAGE DX&/THER NONOBSTETRIC Medical History [...] care for your loved ones. For example, summer child caregiver or elderly care for an older adult? [...] Sexual Orientation Not on file Obstetrics History Para Term AB IAB SAB Ectopic Multiple Livin g Live Births 3 3 3 3 Date Outcome GA Total Labor Labor/2nd/3rd Weight Sex Type Anes PTL Kasandra A1 A5 Name Clin Term Term Term Last Filed Vital Signs Vital Sign Reading Time Taken Comments Blood Pressure 115/67 10/09/2024 10:13 AM EDT Pulse 100 10/09/2024 10:13 AM EDT Temperature 36.7 C (98 F) 10/09/2024 10:13 AM EDT Respiratory Rate 20 08/30/2024 11:00 AM EDT Oxygen Saturation 99% 10/09/2024 10:13 AM EDT Inhaled Oxygen Concentration - - Weight 112 kg (248 lb) 09/24/2024 9:25 AM EDT Height 160 cm (5' 3 ) 09/24/2024 9:25 AM EDT Body Mass Index 43.93 09/24/2024 9:25 AM EDT Plan of Treatment Upcoming Encounters Date Type Department Care Team (Late st Contact Info) Description 12/03/2024 8:15 AM EDT Office Visit Bariatric Surgery - [place] 175 [facility] [address] [place] [phone] Yoav Parikh MD [address] [place] [phone] 12/12/2024 2:40 PM EDT Consult [facility] [address] [place] [phone] Kehinde Card MD [address] [place], [place] [phone] 01/15/2025 10:30 AM EDT Office Visit [facility] - [place] 175 [facility] [address] [place] [phone] Timothy Webster MD [address] [place] [phone] 02/20/2025 9:30 AM EST Office Visit Pulmonolgy - [place] 175 [facility] [address] [place] [phone] Loraine Sawyer MD 175 [facility] [address] [place] [address] 03/04/2025 2:15 PM EST Office Visit Bariatric Surgery - [place] 175 [facility] [address] [place] [phone] Yoav Parikh MD [address] [place] [phone] Health Maintenance Due Date Last Done Comments Hepatitis B Vaccines (1 of 3 - 19+ 3-dose series) 11/26/1987 Zoster Vaccines (1 of 2) 2018 HIV Screening 02/20/2022 Pneumococcal Vaccine: 50+ Years (2 of 2 - PCV) 03/22/2022 03/22/2021 Cervical Cancer Screening: Pap Smear 05/01/2022 05/01/2019 Influenza Vaccine (#1) 2024 , 11/23/2022, 11/02/2022, Additional history exists Social Influencers of Health Screening 07/12/2025 07/12/2024 Breast Cancer Screening 08/14/2026 08/15/19, 07/07/2017, 01/06/2017 Cholesterol Screening (Lipid Panel) 04/14/2028 04/14/2023 DTaP,Tdap,and Td Vaccines (4 - Td or Tdap) 11/09/2030 11/09/2020, 06/27/2017, 04/08/2004 Colorectal Cancer Screening: Colonoscopy 08/15/2033 08/16/2023 Hepatitis C Screening Completed 04/14/2023 COVID-19 Vaccine Completed 01/11/2024, , 01/14/2022, Additional history exists Depression Screening Completed 07/12/2024, 11/16/19 HIB Vaccines Aged Out No longer eligi [...] Procedure Name Priority Date/Time Associated Diagnosis Comments MR BRAIN WO AND W CONTRAST Routine 10/02/2024 10:57 AM EDT Migraine with aura and without status migrainosus, not intractable Memory change Tension headache THYROID STIMULATING HORMONE WITH REFLEX TO FREE T4 AND FREE T3 Routine 09/24/2024 10:19 AM EDT Migraine with aura and without status migrainosus, not intractable Memory change Tension headache METHYLMALONIC ACID, SERUM Routine 09/24/2024 10:19 AM EDT Migraine with aura and without status migrainosus, not intractable Memory change Tension headache HEPATIC FUNCTION PANEL Routine 10:19 AM EDT Migraine with aura and without status migrainosus, not intractable Memory change Tension headache BORRELIA BURGDORFERI ANTIBODY Routine 09/24/2024 10:19 AM EDT Migraine with aura and without status migrainosus, not intractable Memory change Tension headache BUN Routine 09/24/2024 10:19 AM EDT Migraine with aura and without status migrainosus, not intractable Memory change Tension headache CREATININE, SERUM Routine 09/24/2024 10: 19 AM EDT Migraine with aura and without status migrainosus, not intractable Memory change Tension headache VITAMIN D 25 HYDROXY Routine 09/24/2024 10:19 AM EDT Migraine with aura and without status migrainosus, not intractable Memory change Tension headache Vitamin D deficiency VITAMIN B12 Routine 09/24/2024 10:19 AM EDT Migraine with aura and without status migrainosus, not intractable Memory change Tension headache MG MAMMO DIGITAL DIAGNOSTIC W CHAU BILAT Routine 08/14/2024 9:44 AM EDT Pain of left breast HM DEPRESSION SCREENING Routine 11/16/2023 HM COLONOSCOPY Routine 08/16/2023 HM HEPATITIS C SCREENING Routine 04/14/2023 LIPID PANEL Routine 04/14/2023 HM PAP SMEAR Routine 05/01/2019 from Last 3 Months or Most Recently Relevant to Health Maintenance Results * MR Brain wo and w Contrast (10/02/2024 10:57 AM EDT) Anatomical Region Laterality Modality Head and Neck Magnetic Resonan ce 10/02/2024 11:4 5 AM EDT Impressions 10/02/2024 11:57 AM EDT Normal MRI appearance of the brain for patient age. -------- FINAL REPORT -------- Dictated By: Paul Ortega Dictated Date: 10/02/2024 11:45 ET Assigned Physician: Paul Ortega Reviewed and Electronically Signed By: Paul Ortega Signed Date: 10/02/2024 11:57 ET Workstation ID: [id number] Transcribed By: Self Edit Transcribed Date: 10/02/2024 11:45 ET Narrative 10/02/2024 11:57 AM EDT PROCEDURE: Contrast-enhanced MRI of the brain. HISTORY: Memory Loss. TECHNIQUE: Multiplanar multisequence MRI of the brain with and without intravenous contrast. IV CONTRAST DOSE: 20 mL intravenous Dotarem from a 20 mL vial with 0 mL discarded. COMPARISON: 10/31/2022. FINDINGS: BRAIN: No diffusion abnormality. No mass or extra-axial fluid collection. No hydrocephalus. The major intracranial flow voids are preserved. Age commensurate ventricles and sulci. No abnormal enhancement. A few foci of T2 prolongation in the supratentorial white matter are an age commensurate finding, likely sequela of mild chronic microvascular ischemic disease. ORBITS: Normal. SINUSES/MASTOIDS: There is a small amount of debris in one of the posterior left ethmoid air cells. CALVARIUM: Normal. OTHER: The visualized skull base soft tissues are normal. Procedure Note Paul Ortega MD - 10/02/2024 PROCEDURE: Contrast-enhanced MRI of the brain. HISTORY: Memory Loss. TECHNIQUE: Multiplanar multisequence MRI of the brain with and withoutintravenous contrast. IV CONTRAST DOSE: 20 mL intravenous Dotarem from a 20 mL vial with 0 mLdiscarded. COMPARISON: 10/31/2022. FINDINGS: BRAIN: No diffusion abnormality. No mass or extra-axial fluid collection.No hydrocephalus. The major intracranial flow voids are preserved. Agecommensurate ventricles and sulci. No abnormal enhancement. A few fociof T2 prolongation in the supratentorial white matter are an agecommensurate finding, likely sequela of mild chronic microvascularischemic disease. ORBITS: Normal. SINUSES/MASTOIDS: There is a small amount of debris in one of theposterior left ethmoid air cells. CALVARIUM: Normal. OTHER: The visualized skull base soft tissues are normal. IMPRESSION: Normal MRI appearance of the brain for patient age. -------- FINAL REPORT -------- Dictated By: Paul Ortega Dictated Date: 10/02/2024 11:45 ET Assigned Physician: Paul Ortega Reviewed and Electronically Signed By: Paul Ortega Signed Date: 10/02/2024 11:57 ET Workstation ID: [id number] Transcribed By: Self Edit Transcribed Date: 10/02/2024 11:45 ET us Timothy Webster MD IMG MRI PROCEDURES Final Result * Thyroid stimulating hormone with reflex to free t4 and free t3 (09/24/2024 10:19 AM EDT) [facility] TSH 2.79 0.40 - 4.00 mcIU/mL LAB CHEMISTRY METHOD 09/24/2024 12:38 PM EDT [facility] Blood Venous blood specimen / Unknown Venipuncture / Unknown 09/24/2024 10:19 AM EDT 09/24/2024 10:30 AM EDT us Timothy Webster MD LAB BLOOD ORDERABLES Fin al Result [facility] [address] [place] [address], [place] [phone] * Methylmalonic acid, serum (09/24/2024 10:19 AM EDT) [facility] Methylmalonic Acid 0.18 <0.40 umol/L 09/27/2024 4:52 AM EDT [facility] Comment: If applicable, any drug confirmation testing reported here was developed and the performance characteristics determined by [facility]. This confirmation testing has not been cleared or approved by the FDA. The laboratory is regulated under CLIA as qualified to perform high-complexity testing. This test is used for patient testing purposes. It should not be regarded as investigational or for research. Test performed at [facility], [address] , [place] [address] Dora Snyder MD, PhD - Careers Adviser Blood Venous blood specimen / Unknown Venipuncture / Unknown 09/24/2024 10:19 AM EDT 09/24/2024 10:30 AM EDT us Timothy Webster MD LAB BLOOD ORDERABLES Fin al Result Performing Organization Address City/[facility]/ZIP Co de Phone Number [facility] [address] [place] [address] * Borrelia burgdorferi antibody (09/24/2024 10:19 AM EDT) [facility] Lyme Ab Negative Negative LAB CHEMISTRY METHOD 09/24/2024 12:04 PM EDT [facility] Comment: No laboratory evidence of infection with B. burgdorferi (Lyme disease). Negative results may occur in patients recently infected (<=14 days) with B. burgdorferi. If recent infection is suspected, repeat testing on a new sample collected in 7- 14 days is recommended. Blood Venous blood specimen / Unknown Venipuncture / Unknown 09/24/2024 10:19 AM EDT 09/24/2024 10:30 AM EDT us Timothy Webster MD LAB BLOOD ORDERABLES Fin al Result Performing Organization Address City/[facility]/ZIP Co de Phone Number [facility] [address] [place] [address], [place] [phone] * Creatinine (09/24/2024 10:19 AM EDT) Creatinine 0.70 0.50 - 1.10 mg/dL LAB CHEMISTRY METHOD 09/24/2024 11:27 AM EDT [facility] eGFR 102 >=60 mL/min/1. 73m2 LAB CHEMISTRY METHOD 09/24/2024 11:27 AM EDT [facility] Comment:Calculation based on the Chronic Kidney Disease Epidemiology Collaboration (CKD-EPI) equation refit without adjustment for race. Blood Venous blood specimen / Unknown Venipuncture / Unknown 09/24/2024 10:19 AM EDT 09/24/2024 10:30 AM EDT us Timothy Webster MD LAB BLOOD ORDERABLES Fin al Result [facility] [address] [place] [address], * (ABNORMAL) Vitamin D 25 hydroxy (09/24/2024 10:19 AM EDT) Pathologist [facility] Vit D, 25-Hydroxy 13.6(L) 30.0 - 80.0 ng/mL LAB CHEMISTRY METHOD 09/24/2024 12:38 PM EDT [facility] Blood Venous blood specimen / Unknown Venipuncture / Unknown 09/24/2024 10:19 AM EDT 09/24/2024 10:30 AM EDT us Timothy Webster MD LAB BLOOD ORDERABLES Fin al Result [facility] [address] [place] [address], * BUN (09/24/2024 10:19 AM EDT) Pathologist [facility] BUN 14 5 - 25 mg/dL LAB CHEMISTRY METHOD 09/24/2024 11:27 AM EDT [facility] Blood Venous blood specimen / Unknown Venipuncture / Unknown 09/24/2024 10:19 AM EDT 09/24/2024 10:30 AM EDT us Timothy Webster MD LAB BLOOD ORDERABLES Fin al Result Performing Organization Address City/[facility]/ZIP Co de Phone Number [facility] [address] [place] [address], [place] [phone] * Vitamin B12 (09/24/2024 10:19 AM EDT) [facility] Vitamin B-12 428 250 - 900 pcg/mL LAB CHEMISTRY METHOD 09/24/2024 12:00 PM EDT [facility] Blood Venous blood specimen / Unknown Venipuncture / Unknown 09/24/2024 10:19 AM EDT 09/24/2024 10:30 AM EDT us Timothy Webster MD LAB BLOOD ORDERABLES Fin al Result Performing Organization Address [facility] de Phone Number [facility] [address] [place] [address], [place] [phone] * Hepatic function panel (09/24/2024 10:19 AM EDT) Pathologist [facility] Total Protein 7.2 6.0 - 8.0 g/dL LAB CHEMISTRY METHOD 09/24/2024 12:00 PM EDT [facility] Albumin 3.7 3.2 - 5.0 g/dL LAB CHEMISTRY METHOD 09/24/2024 12:00 PM EDT [facility] Total Bilirubin 0.3 0.0 - 1.4 mg/dL LAB CHEMISTRY METHOD 09/24/2024 12:00 PM EDT [facility] Bilirubin, Direct <0.1 0.0 - 0.3 mg/dL LAB CHEMISTRY METHOD 09/24/2024 12:00 PM EDT [facility] Bilirubin, Indirect LAB CHEMISTRY METHOD 09/24/2024 12:00 PM EDT [facility] Comment:Unable to calculate Indirect Bilirubin. ALT (SGPT) 30 10 - 60 unit/L LAB CHEMISTRY METHOD 09/24/2024 12:00 PM EDT [facility] AST (SGOT) 13 10 - 42 unit/L LAB CHEMISTRY METHOD 09/24/2024 12:00 PM EDT [facility] Alkaline Phosphatase 80 42 - 121 unit/L LAB CHEMISTRY METHOD 09/24/2024 12:00 PM EDT [facility] Blood Venous blood specimen / Unknown Venipuncture / Unknown 09/24/2024 10:19 AM EDT 09/24/2024 10:30 AM EDT Timothy Webster MD LAB BLOOD ORDERABLES Fin al Result [facility] [address] [place] [address], [place] [phone] * MG Mammo Digital Diagnostic w Chau bilat (08/14/2024 9:44 AM EDT) Anatomical Region Laterality Modality Breast Bilateral Mammography 08/14/2024 11:1 5 AM EDT Impressions 08/14/2024 11:21 AM EDT No ultrasonographic or mammographic evidence for malignancy. Management of patient's clinical symptoms should be based on clinical grounds. Findings and recommendations were conveyed to the patient. She was advised to follow with her provider. BI-RADS CATEGORY: 1 - NEGATIVE RECOMMENDATION: Screening bilateral mammogram is recommended in 1 year. Clinical management of left breast is recommended. Clinical management of left breast is recommended. Mammo Location: [facility], [address] [place] [address], [phone], . -------- FINAL REPORT -------- Dictated By: Melody Lucia Dictated Date: 08/14/2024 11:15 ET Assigned Physician: Melody Lucia Reviewed and Electronically Signed By: Melody Lucia Signed Date: 08/14/2024 11:21 ET Workstation ID: [id number] Transcribed By: Self Edit Transcribed Date: 08/14/2024 11:15 ET Narrative 08/14/2024 11:21 AM EDT Diagnostic mammogram. Targeted right breast ultrasound. CLINICAL: 53 years old, Female, history of lump in the left axilla which patient does not not feel anymore. Pain in the upper outer quadrant in the left breast. COMPARISON: Prior mammogram from 07/07/2017. FINDINGS: MAMMOGRAPHY TECHNIQUE: Bilateral MLO and CC views as well as a right breast nipple in profile were obtained digitally with 2 D C views and 3-D mammogram (digital breast tomosynthesis). Computer-aided detection was utilized in evaluation of this exam (CAD). There is no evidence of suspicious mass or architectural distortion. No worrisome calcifications are evident. There has been no significant change from prior exam(s). BREAST DENSITY: B - There are scattered areas of fibroglandular density. ULTRASOUND TECHNIQUE: Targeted ultrasound of the left upper outer quadrant was performed through the area indicated by the patient. No evidence of cystic or solid masses or acoustic shadowing identified. Evaluation of the left axilla revealed no evidence of cystic or solid masses or lymphadenopathy. Result [facility] Meg GRADY IMG BI PROCEDURES Final Result * Depression Screening (11/16/2023) [facility] Depression Screening abstracted Result [facility] HEALTH MAINTENANCE Final Result * Colonoscopy (08/16/2023) [facility] Colonoscopy no interpretation , abstracted Anatomical Region Laterality Modality Other Result [facility] Final Result * Hepatitis C Screening (04/14/2023) [facility] Hepatitis C Screening abstracted Result [facility] Final Result * (ABNORMAL) Lipid panel (04/14/2023) LDL/HDL Ratio 3 0 - 4 Triglycerides 90 0 - 150 mg/dL Cholesterol 262(A) 0 - 200 mg/dL HDL 92 >=40 mg/dL LDL Cholesterol 152(A) 0 - 100 mg/dL Blood Venous blood specimen / Unknown Historical Provider LAB BLOOD ORDERABLES Gale l Result * Pap Smear (05/01/2019) Pap smear no interpretation , abstracted Historical Provider HEALTH MAINTENANCE Final Result from Last 3 Months or Most Recently Relevant to Health Maintenance [place] [id number] [facility] [employer] Care Teams Cuffing Machine Operator Relationship Specialty Start Date End Date Krishan Zuniga MD [address] [place] [address] PCP - General Internal Medicine 02/08/24
--- OUTSIDE RECORDS SUMMARY | 2024-12-02 12:49 | XMS_ITS | Encounter Summary ---
Author Organization [facility] Address [address] [place] [address] Care Team Providers Care Cotton Header Name Role Phone Lisa Cruz MD Primary Care Provider [phone] Encounter Details Date Type Department Care Team (Late st Contact Info) Description 02/22/2021 Orders Only [facility] [address] [place] [id number] Provider, Unknown, [address] [place] [address] Social History Tobacco Use Types [...] of this encounter Procedures * Due to [place] law, this organization might not be sharing negative HIV tests. Procedure Name Priority Date/Time Associated Diagnosis Comments AMB EXTERNAL MRI BRAIN, OUTS SAMUEL RESULT Routine 05/12/2020 documented in this encounter Results * Due to [place] law, this organization might not be sharing negative HIV tests. * MRI Brain, Outside Result (05/12/2020) Anatomical Region Laterality Modality Other us Unknown Provider AMB EXTERNAL RESULT PROCEDUR ES Final Result documented in this encounter Visit Diagnoses Not on filedocumented in this encounter Care Teams Cotton Header Relationship Specialty Start Date End Date Lisa Cruz MD PCP - General Internal Medicine 02/22/21 documented as of this encounter
--- OUTSIDE RECORDS SUMMARY | 2024-12-02 12:49 | XMS_ITS | Clinical Summary ---
Author Organization [facility] Address [address] [place] [address] Care Team Providers Care Fittings Finisher Name Role Phone Melina Keith MD Primary Care Provider Allergies Active Allergy Reactions Criticality Noted Date Comments Moxifloxacin 10/24/2019 Penicillins 10/24/2019 Medications Medication Sig Dispensed Refills Start Date End Date Status brimonidine (ALPHAGAN) 0.2 % ophthalmic solution 1 drop every 12 (twelve) hours. 0 Active ergocalciferol (VITAMIN D2) capsule 46089 units TAKE 1 CAPSULE BY MOUTH ONE [...] age to complete this topic Care Teams Fittings Finisher Relationship Specialty Start Date End Date Melina Keith MD PCP - General Internal Medicine 11/15/21
--- OUTSIDE RECORDS SUMMARY | 2024-12-02 12:49 | XMS_ITS | Clinical Summary ---
Author Organization [facility] Address [address] [place] [address] Care Team Providers Care Lining Closer Name Role Phone Lisa Cruz MD Primary Care Provider [phone] Allergies Active Allergy Reactions Criticality Noted Date Comments Moxifloxacin Hives 10/10/2009 [facility] as if her throat was swelling along [...] (2 of 2 - PCV) 03/22/2022 03/22/2021 Alcohol/Substance Use Screening 03/20/2024 Depression Screening and Follow-Up 03/20/2024 Social Drivers of Health Tiff ual Screening 03/20/2024 COVID-19 Vaccine (6 - 2024-2 6 season) 2024 11/02/2022, 01/14/2022, 02/23/2021, Additional history exists Influenza Vaccine (#1) 2024 3, 01/03/2022, 12/06/2020, Additional history exists DTaP,Tdap,and Td Vaccines (2 - Td or Tdap) 11/09/2030 11/09/2020, 06/27/2017, 04/08/2004 RSV Vaccine (60+ years old a nd patients) (1 - 1-dose 75+ series) 11/26/2043 Insurance [employer] Care Teams Lining Closer Relationship Specialty Start Date End Date Lisa Cruz MD PCP - General Internal Medicine 02/22/21
--- OUTSIDE RECORDS SUMMARY | 2024-12-02 12:49 | XMS_ITS | Encounter Summary ---
Author Organization [facility] Address [address] [place] [address] Care Team Providers Care Spinning Frame Changer Name Role Phone Krishan Zuniga MD Primary Care Provider [phone] Reason for Visit * Reason Onset Date Comments medication 02/08/2024 Encounter Details Date Type Department Care Team (Late st Contact Info) Description 02/08/2024 Nurse Triage Adult Medicine [facility] [address] [place], [place] [phone] Melina Keith MD [address] [place], [place] Social History Tobacco Use Types Packs/Day Years [...] breath, wheezing, unable to speak) No 6. [id number]: Are you getting better, staying the same [...] test or self-test, diagnosed by doctor or PLANT TENDER/PA, symptoms after exposure). Home test 9. [...] Unknown Protocols used: COVID-19 - Diagnosed or [id number] * Antionette Navas - 02/08/2024 2:27 PM EST Patient has tested positive for COVID and is looking for paxlovid to be sent to her current pharmacy. documented in this encounter Plan of Treatment Upcoming Encounters Date Type Department Care Team (Late st Contact Info) Description 12/03/2024 8:15 AM EDT Office Visit Bariatric Surgery [facility] [address] [facility] [address] [place] [phone] Yoav Parikh MD [address] [place] [address] 12/12/2024 2:40 PM EDT Consult Breast Care Center [facility] [address] [place] [phone] Kehinde Card MD [address] [place] [address] 01/15/2025 10:30 AM EDT Office Visit [facility] [place] [address] [place] [phone] Timothy Webster MD [address] [place] [phone] 02/20/2025 9:30 AM EST Office Visit Pulmonolgy - [place] [address] [place] [phone] Loraine Sawyer MD [address] [place] [address] 03/04/2025 2:15 PM EST Office Visit Bariatric Surgery - [place] [address] [place] [phone] Yoav Parikh MD [address] [place] [phone] documented as of this encounter Visit Diagnoses Not on filedocumented in this encounter Care Teams Spinning Frame Changer Relationship Specialty Start Date End Date Krishan Zuniga MD [address] [place] [phone] PCP - General Internal Medicine 02/08/24 documented as of this encounter
[2024-12-02 13:17] VITALS: BP 170/83; PULSE 90; RESP 18; O2SAT 98
[2024-12-02 14:02] LABS: COVID-19 Test Negative (Negative); IDNOW Serial# 08D9AD1C; IDNOW Serial# 6674DD1D; Influenza B2 Negative (Negative)
[2024-12-02 14:04] LABS: Troponin-I High Sensitivity < 2.7 ng/L (<3.5-17.0)
[2024-12-02 15:05] LABS: D Dimer High Sensitivity 188 NG/ML
[2024-12-02 15:49] VITALS: BP 170/83; PULSE 90; RESP 18; O2SAT 98
[2024-12-02 15:52] VITALS: BP 170/90; PULSE 75; RESP 19; TEMP 36.8; O2SAT 98
== END 2024-12-02 15:58 | disposition home or self-care (01) ==
PROVIDERS: Emergency Provider Emergency Medicine; PCP Internal Medicine
DX: R07.89 Other chest pain (principal); Z79.899 Other long term (current) drug therapy; Z11.52 Encounter for screening for COVID-19
CPT/HCPCS: 36415; 71045; 80053; 84484; 85025; 85379; 85610; 87502; 87635; 93005; 99283; 99284

== ENCOUNTER → 2024-12-02 09:44 | Outpatient (BNV) | payer OTHER, SELFPAY | PROVIDERS: Emergency Provider Emergency Medicine; PCP Internal Medicine; Visit Provider Internal Medicine | DX: R07.89 Other chest pain (principal) | CPT/HCPCS: 93010 ==

== ENCOUNTER → 2024-12-02 10:35 | Outpatient (BNV) | payer OTHER, SELFPAY | PROVIDERS: PCP Internal Medicine; Visit Provider Radiology Diagnostic Radiology | DX: R07.89 Other chest pain (principal) | CPT/HCPCS: 71045 ==

== ENCOUNTER 2025-03-06 13:46 | Outpatient (AMB) | payer OTHER, SELFPAY ==
--- NOTE | 2025-03-06 13:58 | MHC.OFFVIS ---
Intake Visit Reasons: Inj-Bilateral Synvisc One Injections Intake Note: Elli is a 54 year old female who presents today for a Right Knee Synvisc One. Allergies moxifloxacin (Avelox) Allergy (Unknown, Verified 12/02/24 10:08) Anaphylaxis penicillin V Allergy (Unknown, Verified 12/02/24 10:08) Hives Penicillins (PENICILLINS) Allergy (Unknown, Verified 12/02/24 10:08) HIVES From AVELOX Allergy (Unknown, Uncoded 12/02/24 10:08) THROAT SWELLS HPI Comments Details: Interval History The patient is a 54-year-old female presenting with right knee pain requiring Synvisc One injection. She reports that previous injections have been helpful in managing her symptoms. The patient expressed anxiety about the procedure, recalling a past panic attack, and mentioned taking an anxiety medication to manage her fear. Results [facility] Medical History Asthma C. 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 Office Procedures Joint Inj/Aspir; Non-Pain Clin Joint Injection/Drain Details: Injected SYnvisc One. Site was prepped using aseptic technique. Patient tolerated the procedure well. Shoulders, Hips, Knees, Knee Large Joint Injection 76666: Right Knee Coding Procedure code (CPT) selection complete Assessment & Plan Assessment & Plan (1) Internal derangement of right knee involving anterior horn of medial meniscus: Code(s): M23.311 - Other meniscus derangements, anterior horn of medial meniscus, right knee Category: Medical Plan Plan 1. Right Knee Pain The plan is to administer a Synvisc One injection to the right knee to alleviate pain and improve joint function. The patient was advised that the effects of the injection may take a couple of weeks to be fully appreciated. She was encouraged to monitor her symptoms and report any adverse reactions or lack of improvement. Discussion Notes During the visit, the patient expressed concern about the procedure, recalling a previous panic attack. She was reassured and informed that the Synvisc One injection would be administered slowly to minimize discomfort. The patient was advised that the injection might not provide immediate relief but should improve symptoms over the next few weeks. She agreed to proceed with the treatment and was encouraged to contact the clinic if she experienced any issues or had further questions. Coding Level of Care Code Est Pt Level 2 (08322) Diagnoses Internal derangement of right knee involving anterior horn of medial meniscus M23.311 CPT Codes Shoulders, Hips, Knees, - Knee Large Joint Injection 89382: Right Knee ([id number])
--- OUTSIDE RECORDS SUMMARY | 2025-03-06 18:00 | XMS_ITS | Clinical Summary ---
Author Organization [facility] Address [address] [place] [address] Care Team Providers Care Materials Mgmt Tech Name Role Phone Lisa Cruz MD Primary Care Provider [phone] Allergies Active Allergy Reactions Criticality Noted Date Comments Moxifloxacin Hives 10/10/2009 [place] as if her throat was swelling along [...] ual Screening 03/20/2024 Influenza Vaccine (#1) 2024 , 01/03/2022, 12/06/2020, Additional history exists COVID-19 Vaccine (6 - 2024-2 6 season) 2024 11/02/2022, 01/14/2022, 02/23/2021, Additional history exists DTaP,Tdap,and Td Vaccines (2 - Td or Tdap) 11/09/2030 11/09/2020, 06/27/2017, 04/08/2004 Insurance [employer] Care Teams Materials Mgmt Tech Relationship Specialty Start Date End Date Lisa Cruz MD PCP - General Internal Medicine 02/22/21
--- OUTSIDE RECORDS SUMMARY | 2025-03-06 18:00 | XMS_ITS | Clinical Summary ---
Author Organization [facility] Prior to 08/17/[address] [place] [address] Care Team Providers Care Blow Pit Helper Name Role Phone Melina Keith MD Primary Care Provider Allergies Active Allergy Reactions Criticality Noted Date Comments Moxifloxacin 10/24/2019 Penicillins 10/24/2019 Medications Medication Sig Dispensed Refills Start Date End Date Status brimonidine (ALPHAGAN) 0.2 % ophthalmic solution 1 drop every 12 (twelve) hours. 0 Active ergocalciferol (VITAMIN D2) capsule 89347 units TAKE 1 CAPSULE BY MOUTH ONE [...] age to complete this topic Care Teams Blow Pit Helper Relationship Specialty Start Date End Date Melina Keith MD [phone] (work) PCP - General Internal Medicine 11/15/21
--- OUTSIDE RECORDS SUMMARY | 2025-03-06 18:00 | XMS_ITS | Clinical Summary ---
Author Organization [facility] Address [address] [id number] Phone Care Team Providers Care Medical Doctor Name Role Phone Lisa Cruz MD Primary Care Provider [phone] Allergies Active Allergy Reactions Criticality Noted Date Comments Moxifloxacin 09/05/2021 Penicillins 09/05/2021 Medications diclofenac sodium (VOLTAREN) 1 % Gel Apply 4 g topically 4 (four) times a day. 20 g Active Social History Tobacco Use Types Packs/Day Years [...] 07/02/2020, 06/04/2020 Adult Td,Tdap Booster 11/09/2030 11/09/2020 RSV VACCINE (1 - 1-dose 75+ series) 11/26/2043 HEPATITIS A VACCINES Aged Out No long [...] topic Medical Devices Not on file Insurance [facility] [place] [id number] Care Teams Medical Doctor Relationship Specialty Start Date End Date Lisa Cruz MD [address] [place] [address] PCP - General Internal Medicine 09/05/21 Additional Source Comments The information contained in this document represents components of the legal health record. It is not the complete legal health record.[facility]
--- OUTSIDE RECORDS SUMMARY | 2025-03-06 18:00 | XMS_ITS | Encounter Summary ---
Author Organization [facility] Address [address] [place] [address] Care Team Providers Care Deep Tissue Massage Therapist Name Role Phone Krishan Zuniga MD Primary Care Provider [phone] Encounter Details Date Type Department Care Team (Late st Contact Info) Description 01/31/2025 Results Follow-Up Adult [address] [phone] Meg Mariano PA [address] [place], [place] Social History Tobacco Use Types Packs/Day [...] your loved ones. For example, child care center assistant director or elderly care for an older [...] Date Recorded What is your living situation? Unrecognized valu e 07/12/2024 Comments No Sex and Gender Information Value Date Recorded Sex Assigned at Not on file Legal Sex Female 12:18 AM EST Gender Identity Not on file Sexual Orientation Not on file documented as of this encounter Plan of Treatment Upcoming Encounters Date Type Department Care Team (Late st Contact Info) Description 03/07/2025 10:30 AM EST Office Visit Adult Medicine [address] [phone] Meg Mariano PA [address] [place] [address] 04/04/2025 10:30 AM EST Office Visit Adult Medicine [address] [phone] Rsata García, LUDWIG [address] [place] [address] 04/04/2025 11:00 AM EST Office Visit Bariatric Surgery [facility] [address] [facility] [address] [place] [address] Yoav Parikh MD [address] [place] [phone] 04/22/2025 3:00 PM EST Office Visit Orthopedic Surgery - [place] [address] [facility] [address] [place] [phone] Burt Rich DPAnnamaria [address] [facility] [address] [place] [phone] 05/06/2025 10:00 AM EST Consult [facility] - [place] [address] [place] [phone] Kehinde Card MD [address] [place] [address] 08/21/2025 10:45 AM EDT Office Visit Pulmonology [facility] [address] [facility] [address] [place] [phone] Loraine Sawyer MD [address] [place] [phone] documented as of this encounter Visit Diagnoses Not on filedocumented in this encounter Additional Health Concerns Assessment Noted Time PHQ-9 Depression Total Score: 18 025 4:23 PM EDT documented as of this encounter Care Teams Deep Tissue Massage Therapist Relationship Specialty Start Date End Date Krishan Zuniga MD [address] [place] [address] PCP - General Internal Medicine 02/08/24 documented as of this encounter
--- OUTSIDE RECORDS SUMMARY | 2025-03-06 18:00 | XMS_ITS | Clinical Summary ---
Author Organization [address] Address [address] [place] [phone] Phone Care Team Providers Care Solar Field Installation Crew Member Name Role Phone Krishan Zuniga MD Primary Care Provider Allergies Active Allergy Reactions Criticality Noted Date Comments Moxifloxacin Hives 10/10/2009 [place] as if her throat was swelling along w/rash/hives. Penicillins Rash 03/07/2005 Pollen Extracts 09/24/2024 Medications acetaminophen (TYLENOL) 325 mg tablet Take 2 tablets (650 mg total) by mouth every 8 (eight) hours if needed. 08/15/19 24 Active brimonidine (ALPHAGAN) 0.2 % ophthalmic solution Administer 1 drop into affected eye(s). Active Ventolin HFA 90 mcg/actuation inhaler INHALE 2 PUFFS INTO THE LUNGS EVERY 4 HOURS NEEDED FOR COUGH OR WHEEZING. 18 each 11 08/21/19 25 Active celecoxib (CeleBREX) 50 mg capsule TAKE 1 CAPSULE BY MOUTH TWICE A DAY 180 capsule 1 09/10/19 25 Active hydrOXYzine HCL (ATARAX) 10 mg tablet TAKE 1 TABLET (10 MG TOTAL) BY MOUTH 3 TIMES A DAY NEEDED FOR ANXIETY 270 tablet 1 09/20/19 25 Active ascorbic acid (VITAMIN C) 500 mg tablet TAKE 1 TABLET BY MOUTH 1 TIME EACH DAY. 90 tablet 1 12/26/19 25 Active Advair Diskus 500-50 mcg/dose diskus inhaler INHALE 1 PUFF BY MOUTH 2 (TWO) TIMES A DAY. RINSE MOUTH WITH WATER AFTER USE TO REDUCE AFTERTASTE AND INCIDENCE OF CANDIDIASIS. DO NOT SWALLOW. 60 each 12 01/25/20 25 Active loratadine (CLARITIN) 10 mg tablet TAKE 1 TABLET BY MOUTH EVERY DAY 90 tablet 1 02/11/20 25 Active gabapentin (NEURONTIN) 100 mg capsule TAKE 1 CAPSULE BY MOUTH TWICE A DAY 60 capsule 02/21/20 25 Active diclofenac (VOLTAREN) 1 % topical gel APPLY 4 GRAMS TOPICALLY TWICE A DAY 200 g 02/22/20 25 Active albuterol 2.5 mg /3 mL (0.083 %) nebulizer solution USE 1 VIAL VIA NEBULIZER EVERY 4 HOURS NEEDED FOR WHEEZE 375 mL 02/22/20 25 Active tirzepatide, weight loss, (Zepbound) 10 mg/0.5 mL injectionIndic ations:Morbid obesity (CMS/HCC V24, CMS/HCC V28) Inject 0.5 mL (10 mg total) under the skin every 7 (seven) days. 2 mL 02/29/20 25 026 Active hydrocortisone 2.5 % cream Apply topically 2 (two) times a day if needed for irritation or rash. 30 g 2 02/28/20 25 026 Active cyclobenzaprin e (FLEXERIL) 5 mg tablet TAKE 2 TABLETS BY MOUTH DAILY AT BEDTIME 30 tablet 1 03/05/20 25 Active loratadine (CLARITIN) 10 mg tablet TAKE 1 TABLET BY MOUTH EVERY DAY 90 tablet 1 08/21/19 25 025 Discontinued albuterol 2.5 mg /3 mL (0.083 %) nebulizer solution USE 1 VIAL VIA NEBULIZER EVERY 4 HOURS NEEDED FOR WHEEZE 375 mL 01/04/20 25 025 Discontinued cyclobenzaprin e (FLEXERIL) 5 mg tablet TAKE 2 TABLETS (10 MG TOTAL) BY MOUTH AT BEDTIME. 30 tablet 1 01/04/20 25 025 Discontinued gabapentin (NEURONTIN) 100 mg capsule TAKE 1 CAPSULE BY MOUTH TWICE A DAY 60 capsule 01/22/20 25 025 Discontinued Pulmicort Flexhaler 90 mcg/actuation inhaler INHALE 2 PUFFS BY MOUTH 2 TIMES A DAY. RINSE MOUTH WITH WATER AFTER USE DO NOT SWALLOW 1 each 2 01/31/20 25 025 Discontinued tirzepatide, weight loss, (Zepbound) 7.5 mg/0.5 mL injectionIndic ations:Morbid obesity (CMS/HCC V24, CMS/HCC V28) INJECT 0.5 ML (7.5 MG TOTAL) UNDER THE SKIN EVERY 7 (SEVEN) DAYS. 2 mL 02/01/20 25 025 Discontinued diclofenac (VOLTAREN) 1 % topical gel Apply 4 g topically 2 (two) times a day. 200 g 01/31/20 25 025 Discontinued Active Problems Problem Noted Date Diagnosed Date [...] Encounters Date Type Department Care Team Description 02/27/2025 10:45 AM EST Office Visit Adult Medicine [address] [phone] Meg Mariano PA Dermatitis (Primary Dx); Non-seasonal allergic rhinitis due to other allergic trigger; Anxiety 02/26/2025 Telephone Pulmonology - [address] [place] [phone] Gregg Whitfield MA 02/26/[address] [phone] Loraine Sawyer MD 02/20/2025 9:30 AM EST Office Visit [address] [phone] Loarine Sawyer MD Chronic obstructive pulmonary disease, unspecified COPD type (CMS/HCC V24, CMS/HCC V28) (Primary Dx); Morbid obesity (CMS/HCC V24, CMS/HCC V28) 01/31/2025 Results Follow-Up [address] [phone] Meg Mariano PA 01/30/2025 3:05 PM EST - 01/30/2025 11:59 PM EST Hospital Encounter [address] [phone] Bilateral foot pain Discharge Disposition: Home or Self Care 01/30/2025 2:30 PM EST Office Visit [address] [phone] Meg Mariano PA Bilateral foot pain (Primary Dx); Bilateral lower extremity edema; Mild intermittent asthma without complication; Anxiety and depression; Strain of flexor muscle of right hip, initial encounter 01/01/2025 Telephone Pulmonology [address] [phone] Loraine Sawyer MD 12/19/[address] [phone] Krishan Zuniga MD 12/10/2024 3:30 PM EDT Office Visit [address] [phone] Meg Mariano PA Intercostal pain (Primary Dx); Moderate persistent asthma, unspecified whether complicated; Mixed hyperlipidemia; Acute left-sided low back pain without sciatica from Last 3 Months Immunizations Immunization Administration Dates Next Due H1N1 Inj Preservative Free 03/04/2009 Influenza Quadravalent, MDCK , 0.5ml, with preservative (Flucelvax) 6mo and older 01/21/2018,12/08/2016 Influenza Quadrivalent, 0.5m l, preservative free (Fluarix; FluLaval; Fluzone) ages 6mo and older (Afluria) 3yo and older 11/02/2022,01/03/2022,12/06/2020,12/17 Influenza trivalent, MDCK, 0 .5mL, preservative free (Flucelvax) 6mo and older 11/16/2023 Influenza trivalent, recombi nant, 0.5mL, preservative free (Flublok) 9yo and older 01/11/2025 Influenza trivalent, with pr eservative (Fluzone; Afluria) 6mo and older 11/02/2022,01/03/2022,12/06/2020,12/17,12/16/2015,01/07/2014,12/16/2011 ,12/17/2010,03/04/2009,12/25/2007,12/20,02/24/2006,03/07/2005 Influenza, Unspecified 11/23/2022,01/01/2021 Moderna (age 6mo & older) Bi valent, COVID-19, 0.5 mL or 0.25 mL dosage 11/02/2022,01/14/2022 PPD Test 06/22/2011 Pneumococcal conjugate 21 va lent (CAPVAXIVE, PCV 21) 19yo and older 01/11/2025 Pneumococcal polysaccharide 23 valent (Pneumovax 23) 2yo [...] pr pt OTHER SURGICAL HISTORY 04/01/2019 PROCEDURE: FL DILATION & CURETTAGE DX&/THER NONOBSTETRIC Medical History [...] Alive 1998; healthy Father Alive AMI (40s); [facility]'s entire family estranged Maternal Grandfather Killed in [...] care for your loved ones. For example, maternal child nurse or elderly care for an older adult? [...] Sign Reading Time Taken Comments Blood Pressure 132/79 02/27/2025 10:38 AM EST Pulse 75 02/27/2025 10:38 AM EST Temperature 36.4 C (97.6 F) 02/27/2025 10:38 AM EST Respiratory Rate 16 02/20/2025 9:40 AM EST Oxygen Saturation 97% 02/27/2025 10:38 AM EST Inhaled Oxygen Concentration - - Weight 116 kg (256 lb 6.4 oz) 02/27/2025 10:38 A M EST Height 160 cm (5' 3 ) 01/30/2025 2:27 PM EST Body Mass Index 45.42 01/30/2025 2:27 PM EST Plan of Treatment Upcoming Encounters Date Type Department Care Team (Late st Contact Info) Description 03/07/2025 10:30 AM EST Office Visit Adult [address] [phone] Meg Mariano PA [address] [place], [place] 04/04/2025 10:30 AM EST Office Visit [address] [phone] Rasta García, LUDWIG [address] [place], [place] 04/04/2025 11:00 AM EST Office Visit Bariatric Surgery [facility] 175 [facility] 120 [place] [phone] Yoav Parikh MD [address] [place] [phone] 04/22/2025 3:00 PM EST Office Visit Orthopedic Surgery [facility] 250 [address] [facility] 250 [place] [phone] Burt Rich DPAnnamaria [address] [phone] 05/06/2025 10:00 AM EST Consult [facility] [place] [address] [place] [phone] Kehinde Card MD [address] [place] [address] 08/21/2025 10:45 AM EDT Office Visit Pulmonology [facility] 175 [facility] 200 [place] [phone] Loraine Sawyer MD [address] [place] [phone] Health Maintenance Due Date Last Done Comments Hepatitis B Vaccines (1 of 3 - 19+ 3-dose series) 11/26/1987 RSV Immunization Adult Patients (1 - Risk 50-74 years 1-dose series) 2018 Zoster Vaccines (1 of 2) 2018 HIV Screening 02/20/2022 Cervical Cancer Screening: Pap Smear 05/01/2022 05/01/2019 COVID-19 Vaccine ( season) 2024 01/11/2024, 11/02/2022, 01/14/2022, Additional history exists Social Influencers of Health Screening 07/12/2025 07/12/2024 Breast Cancer Screening 08/14/2026 08/15/19, 07/07/2017, 01/06/2017 Cholesterol Screening (Lipid Panel) 04/14/2028 04/14/2023 DTaP,Tdap,and Td Vaccines (4 - Td or Tdap) 11/09/2030 11/09/2020, 06/27/2017, 04/08/2004 Colorectal Cancer Screening: Colonoscopy 08/15/2033 08/16/2023 Hepatitis C Screening Completed 04/14/2023 Depression Screening Completed 07/12/2024, 11/16/19 Influenza Vaccine Completed 01/11/2025, , 11/23/2022, Additional history exists Pneumococcal Vaccine: 50+ Years Completed 01/11/2025, 03/22/2021 HIB Vaccines Aged Out No longer eligi [...] Procedure Name Priority Date/Time Associated Diagnosis Comments XR FOOT 3+ VIEWS BILAT Routine 01/30/2025 3:23 PM EST Bilateral foot pain MG MAMMO DIGITAL DIAGNOSTIC W CHAU BILAT Routine 08/14/2024 9:44 AM EDT Pain of left breast DEPRESSION SCREENING Routine 11/16/2023 COLONOSCOPY Routine 08/16/2023 HEPATITIS C SCREENING Routine 04/14/2023 LIPID PANEL Routine 04/14/2023 PAP SMEAR Routine 05/01/2019 from Last 3 Months or Most Recently Relevant to Health Maintenance Results * XR Foot 3+ Views bilat (01/30/2025 3:23 PM EST) Anatomical Region Laterality Modality Lower Extremities, Foot Bilateral Radiogra phic Imaging 01/30/2025 7:00 PM EST Impressions 01/30/2025 7:03 PM EST 1. No acute fracture or dislocation of the bilateral feet 2. Moderate size calcaneal spurs -------- FINAL REPORT -------- Dictated By: Johnathan Jefferson Dictated Date: 01/30/2025 19:00 ET Assigned Physician: Johnathan Jefferson Reviewed and Electronically Signed By: Johnathan Jefferson Signed Date: 01/30/2025 19:03 ET Workstation ID: [id number] Transcribed By: Self Edit Transcribed Date: 01/30/2025 19:00 ET Narrative 01/30/2025 7:03 PM EST HISTORY: pain, mid/top of her foot x 2 years TECHNIQUE: AP, lateral, and oblique radiographs of the bilateral feet COMPARISON: None FINDINGS: The foot demonstrates normal mineralization with no fracture or malalignment. The visualized articulations are normal. Moderate size calcaneal spurs. Small anterior osteophytes at the tarsometatarsal joints. No significant soft tissue swelling is identified. Procedure Note Johnathan Jefferson MD - 01/30/2025 HISTORY: pain, mid/top of her foot x 2 years TECHNIQUE: AP, lateral, and oblique radiographs of the bilateral feet COMPARISON: None FINDINGS: The foot demonstrates normal mineralization with no fracture ormalalignment. The visualized articulations are normal. Moderate sizecalcaneal spurs. Small anterior osteophytes at the tarsometatarsal joints.No significant soft tissue swelling is identified. IMPRESSION: 1. No acute fracture or dislocation of the bilateral feet 2. Moderate size calcaneal spurs -------- FINAL REPORT -------- Dictated By: Johnathan Jefferson Dictated Date: 01/30/2025 19:00 ET Assigned Physician: Johnathan Jefferson Reviewed and Electronically Signed By: Johnathan Jefferson Signed Date: 01/30/2025 19:03 ET Workstation ID: [id number] Transcribed By: Self Edit Transcribed Date: 01/30/2025 19:00 ET Meg GRADY IMG XR PROCEDURES Final Result * MG Mammo Digital Diagnostic w Chau [...] of left breast is recommended. Mammo Location: [facility], [address] [place] [address], [id number], . -------- FINAL REPORT -------- Dictated By: Melody Lucia Dictated Date: 08/14/2024 11:15 ET Assigned Physician: Melody Lucia Reviewed and Electronically Signed By: Melody Lucia Signed Date: 08/14/2024 11:21 ET Workstation ID: [id number] Transcribed By: Self Edit Transcribed Date: 08/14/2024 [...] of cystic or solid masses or lymphadenopathy. Meg Bargerng Chau GRADY IMG BI PROCEDURES Final Result * Depression Screening (11/16/2023) Depression Screening abstracted Historical Provider HEALTH MAINTENANCE Final Result * Colonoscopy (08/16/2023) [facility] Colonoscopy no interpretation , abstracted Anatomical Region Laterality Modality Other [facility] Provider HEALTH MAINTENANCE Final Result * Hepatitis C Screening (04/14/2023) Pathologist [facility] Hepatitis C Screening abstracted Result [facility] Provider HEALTH MAINTENANCE Final Result * (ABNORMAL) Lipid panel (04/14/2023) [facility] LDL/HDL Ratio 3 0 - 4 Triglycerides 90 0 - 150 mg/dL Cholesterol 262(A) 0 - 200 mg/dL HDL 92 >=40 mg/dL LDL Cholesterol 152(A) 0 - 100 mg/dL Blood Venous blood specimen / Unknown Result [facility] Provider LAB BLOOD ORDERABLES Gale l Result * Pap Smear (05/01/2019) Pathologist [facility] Pap smear no interpretation , abstracted [facility] Provider HEALTH MAINTENANCE Final Result from Last 3 Months or Most Recently Relevant to Health Maintenance Insurance [facility] [employer] Care Teams Solar Field Installation Crew Member Relationship Specialty Start Date End Date Krishan Zuniga MD [address] [place] [address] PCP - General Internal Medicine 02/08/24
--- OUTSIDE RECORDS SUMMARY | 2025-03-06 18:00 | XMS_ITS | Encounter Summary ---
Author Organization [facility] Address [address] [place] [address] Care Team Providers Care Senior Research Executive Name Role Phone Krishan Zuniga MD Primary Care Provider [phone] Reason for Visit * Reason Onset Date Comments medication 02/08/2024 Encounter Details Date Type Department Care Team (Late st Contact Info) Description 02/08/2024 Nurse Triage Adult Medicine [facility] [address] [place], [place] [phone] Melina Keith MD [address] [place], [place] Social History Tobacco Use Types Packs/Day [...] breath, wheezing, unable to speak) No 6. 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 Home test 9. COVID-19 [...] Unknown Protocols used: COVID-19 - Diagnosed or [id number] * Antionette Navas - 02/08/2024 2:27 PM EST Patient has tested positive for COVID and is looking for paxlovid to be sent to her current pharmacy. documented in this encounter Plan of Treatment Upcoming Encounters Date Type Department Care Team (Late st Contact Info) Description 03/07/2025 10:30 AM EST Office Visit Adult Medicine [address] [phone] Meg Mariano PA [address] [place] [address] 04/04/2025 10:30 AM EST Office Visit Adult Medicine [address] [phone] Rasta García NP [address] [place] [address] 04/04/2025 11:00 AM EST Office Visit Bariatric Surgery - [place] 175 [facility] [address] [place] [phone] Yoav Parikh MD [address] [place] [phone] 04/22/2025 3:00 PM EST Office Visit Orthopedic Surgery - [place] 250 175 [facility] [address] [place] [phone] Burt Rich DPM 175 [facility] 250 [place] [phone] 05/06/2025 10:00 AM EST Consult [facility] [place] [address] [place] [phone] Kehinde Card MD [address] [place] [address] 08/21/2025 10:45 AM EDT Office Visit Pulmonology - [place] 175 [facility] 200 [place] [phone] Loraine Sawyer MD [address] [place] [phone] documented as of this encounter Visit Diagnoses Not on filedocumented in this encounter Care Teams Senior Research Executive Relationship Specialty Start Date End Date Krishan Zuniga MD [address] [place] [phone] PCP - General Internal Medicine 02/08/24 documented as of this encounter
--- OUTSIDE RECORDS SUMMARY | 2025-03-06 18:00 | XMS_ITS | Encounter Summary ---
Author Organization [facility] Address [address] [place] [address] Care Team Providers Care Head Of Stock Name Role Phone Lisa Cruz MD Primary Care Provider [phone] Encounter Details Date Type Department Care Team (Late st Contact Info) Description 02/22/2021 Orders Only [facility] [address] [place] [phone] Provider, Unknown, [address] [place] [address] Social History Tobacco Use Types [...] encounter Procedures * Due to [place] law, this organization might not be sharing negative HIV tests. Procedure Name Priority Date/Time Associated Diagnosis Comments AMB EXTERNAL MRI BRAIN, OUTS SAMUEL RESULT Routine 05/12/2020 documented in this encounter Results * Due to [place] law, this organization might not be sharing negative HIV tests. * MRI Brain, Outside Result (05/12/2020) us Unknown Provider MD NAIR EXTERNAL RESULT PROCEDUR ES Final Result documented in this encounter Visit Diagnoses Not on filedocumented in this encounter Care Teams Head Of Stock Relationship Specialty Start Date End Date Lisa Cruz MD PCP - General Internal Medicine 02/22/21 documented as of this encounter
== END 2025-03-06 14:18 | disposition home or self-care (01) ==
LOC: HO.HOS 13:46
PROVIDERS: PCP Internal Medicine; Visit Provider Orthopaedic Surgery
DX: M23.311 Other meniscus derangements, anterior horn of medial meniscus, right knee (principal)
CPT/HCPCS: 20610

== ENCOUNTER → 2025-03-06 13:46 | Outpatient (BNVA) | payer OTHER, SELFPAY | PROVIDERS: PCP Internal Medicine; Visit Provider Orthopaedic Surgery | DX: M23.311 Other meniscus derangements, anterior horn of medial meniscus, right knee (principal) | CPT/HCPCS: 20610; J7325 ==